=== PATIENT | male | born 1965 | race African-American/Black ===

== ENCOUNTER → 2018-07-24 | Day surgery (SDC) | payer OTHER ==
[~2018-07-24] VITALS: Ht 175.3 cm; Wt 88.5 kg
[2018-07-24] VITALS (7 sets, daily range): BP systolic 132–156; BP diastolic 66–99
[~2018-07-24] MED LIST: ACIDOPHILUS LA1 EACH PO; AMBIEN10 MG PO; AMLODIPINE BESY10 MG PO; ASCORBIC ACID500 MG PO; BACTRIM DS TAB1 EACH GT; CHLORASEPTIC177 M1 PO; CRANBERRY425 MG GT; DAKIN'S473 M1 TOP; DOCUSATE SODIU100 MG PO; FAMOTIDINE40 MG PO; FENTANYL CITRATE/PF 100MCG/2 ML INJ ONE; HEPARIN SOD (PORCINE) 1000 UNIT/ML 30ML ONE; HYDROXYZINE HCL25 MG PO; LACTULOSE20 GM/30 M PO; LIDOCAINE HCL 2% LOCAL 20 ML VIAL ONE; MACRODANTIN100 MG PO; MAGNESIUM OXID400 MG PO; MEROPENEM1 GM IV; METOPROLOL TART50 MG PO; MIDAZOLAM HCL 2 MG/2 ML VIAL ONE; MUCINEX DM ER1 EAC1 PO; MULTIVITAMINS1 EAC6 PO; OMEPRAZOLE20 MG PO; PROMETHAZINE12.5 M1 PO; QUESTRAN PACKET4 GM PO; SODIUM CHLORIDE 0.9% 500ML 1,000 ML ONE; TESSALON PERLE100 MG PO; TYLENOL WITH C1 EACH PO; UNASYN 1.5 GM1.5 GM INJ; ZINC SULFATE220 MG PO
--- OUTSIDE RECORDS SUMMARY | 2018-07-24 06:48 | XMS REPORT | Clinical Summary ---
Author Author AILYN [facility] Address Unknown Phone Unavailable Care Team Providers Care Personalized Living Manager Nurse Name Role Phone Dillon Sae PCP Allergies No Known Allergies Medications End Date Status Medication Sig Dispensed Refills Start Date Active metoprolol (LOPRESSOR) 50 Take 50 mg by 0 MG tablet mouth 2 (two) 8 times daily. Active levothyroxine (SYNTHROID, Take 25 mcg 0 LEVOTHROID) 25 MCG tablet by mouth daily. Active cetirizine (ZYRTEC) 10 MG Take 10 mg by 0 tablet mouth nightly. Active amLODIPine (NORVASC) 10 Take 1 tablet 30 tablet 11 MG tablet (10 mg total) 8 by mouth daily. Active gabapentin (NEURONTIN) Take 1 90 capsule 6 300 MG capsule capsule (300 8 mg total) by mouth 3 (three) times daily. Active losartan (COZAAR) 100 MG Take 1 tablet 30 tablet 11 tablet (100 mg 8 total) by mouth daily. Active HYDROcodone-acetaminophen Take 1 tablet 30 tablet 0 (NORCO 10-325) 10-325 mg by mouth 8 per tablet every 6 (six) hours as needed for Pain. Max Daily Amount: 4 tablets 02/07/2018 levoFLOXacin (LEVAQUIN) Take 1 tablet 10 tablet 0 500 MG tablet (500 mg 8 total) by mouth daily for 7 days. 07/08/2018 sulfamethoxazole-trimetho Take 1 tablet 20 tablet 0 prim (BACTRIM DS) 800-160 (160 mg of 9 mg per tablet trimethoprim total) by mouth 2 (two) times daily for 10 days smx-tmp DS (BACTRIM) 800-160 mg tabs (1tab q12 D10). Active Problems Problem Noted Date Wound, open, hip or thigh with complication, left, initial encounter 11/14/2017 Decubitus ulcer of sacral region, unspecified ulcer stage 05/14/2017 Acute pyelonephritis 11/28/2016 Sepsis 11/28/2016 MANNY (acute kidney injury) 11/28/2016 Essential hypertension 11/28/2016 Diarrhea 11/28/2016 Chronic osteomyelitis of left femur 03/19/2016 Osteomyelitis 03/19/2016 Lower urinary tract infectious disease 08/17/2013 Overview: UPDATED BY ICD10 SNOMED/IMO UPDATES Decubitus skin ulcer 08/17/2013 Overview: SNOMED/[place] [address] Anemia, chronic disease 08/17/2013 Paraparesis of both lower limbs 08/17/2013 Neurogenic bladder 08/17/2013 SIRS (systemic inflammatory response syndrome) 08/17/2013 Encounters Care Team Description Date Type Specialty Spring Cook MD Acute UTI (Primary Dx); Lower abdominal pain; Chronic osteomyelitis (HCC); Infected hardware in left lower extremity, initial encounter (HCC); Cough 06/28/2018 Emergency Emergency Medicine Richard Vasquez MD 04/18/2018 Office Visit Wound Care Richard Vasquez MD No Show 04/11/2018 Office Visit Wound Care Richard Vasquez MD 04/04/2018 Office Visit Wound Care Richard Vasquez MD 02/21/2018 Office Visit Wound Care Richard Vasquez MD 02/14/2018 Office Visit Wound Care Guevara Jay MD Epididymitis (Primary Dx); Scrotal swelling; Abdominal pain, acute, left lower quadrant 01/31/2018 Emergency Emergency Medicine Richard Vasquez MD 01/24/2018 Office Visit Wound Care Richard Vasquez MD No Show 01/17/2018 Office Visit Wound Care Richard Vasquez MD 11/22/2017 Office Visit Wound Care Sukumar Duvall MD Brann, Christopher Scott, MD Gadicherla, Sonal Muralinath, MD Wound, open, hip or thigh with complication, left, initial encounter (Primary Dx); Chronic osteomyelitis (HCC); Decubitus ulcer of sacral region, unspecified ulcer stage; Paraparesis of both lower limbs (HCC); Neurogenic bladder; Suprapubic catheter (HCC); Urinary tract infection associated with cystostomy catheter, initial encounter (HCC); MANNY (acute kidney injury) (HCC); Chronic osteomyelitis of left femur (HCC); Essential hypertension; Decubitus ulcer of buttock, stage 2, unspecified laterality 11/14/2017 [facility] General Internal Medicine - Encounter 11/18/2017 Richard Vasquez MD 11/08/2017 Office Visit Wound Care Richard Vasquez MD 10/11/2017 Office Visit Wound Care Richard Vasquez MD 09/20/2017 Office Visit Wound Care Richard Vasquez MD 08/30/2017 Office Visit Wound Care Richard Vasquez MD 08/09/2017 Office Visit Wound Care Richard Vasquez MD 07/26/2017 Office Visit Wound Care after 07/23/2017 Social History Date Tobacco Use Types Packs/Day Years Used Never Smoker Smokeless Tobacco: Never Used Alcohol Use Drinks/Week oz/Week Comments Yes occasionally. Sex Assigned at Date Recorded Not on file Industry Job Start Date Occupation Not on file Not on file Not on file Travel End Travel History Travel Start No recent travel history available. Last Filed Vital Signs Time Taken Vital Sign Reading 06/28/2018 10:47 PM CDT Blood Pressure 123/70 06/28/2018 10:47 PM CDT Pulse 96 06/28/2018 10:47 PM CDT Temperature 36.9 C (98.4 F) 06/28/2018 10:47 PM CDT Respiratory Rate 16 06/28/2018 10:47 PM CDT Oxygen Saturation 98% - Inhaled Oxygen - Concentration 06/28/2018 5:53 PM CDT Weight 88.5 kg (195 lb) 01/31/2018 2:22 PM [employer] Height 175.3 cm (5' 9") 06/28/2018 5:53 PM CDT Body Mass Index 28.8 Plan of Treatment Not on file Procedures Comments Procedure Name Priority Date/Time Associated Diagnosis URINALYSIS W/ REFLEX STAT 06/28/2018 URINE CULTURE 7:53 PM CDT URINE CULTURE STAT 06/28/2018 7:[address] ABDOMEN/PELVIS WITHOUT STAT 06/28/2018 IV CONTRAST 7:46 PM CDT XR CHEST 1 VIEW STAT 06/28/2018 PORTABLE/BEDSIDE 7:06 PM CDT POCT-LACTIC ACID, VENOUS Routine 06/28/2018 6:57 PM CDT CBC W/PLT COUNT & AUTO STAT 06/28/2018 DIFFERENTIAL 6:49 PM CDT BLOOD GAS, VENOUS STAT 06/28/2018 6:49 PM CDT MAGNESIUM STAT 06/28/2018 6:49 PM CDT PHOSPHORUS STAT 06/28/2018 6:49 PM CDT HEPATIC FUNCTION PANEL STAT 06/28/2018 6:49 PM CDT BASIC METABOLIC PANEL (7) STAT 06/28/2018 6:49 PM CDT CBC W/PLT COUNT & AUTO STAT 06/28/2018 DIFFERENTIAL 6:[address] ABDOMEN/PELVIS WITHOUT STAT 01/31/2018 IV CONTRAST 6:08 PM [employer] US DOPPLER STAT 01/31/2018 4:20 PM [employer] US TESTICULAR (SCROTUM) STAT 01/31/2018 4:20 PM [employer] URINALYSIS W/ MICROSCOPIC STAT 01/31/2018 3:16 PM [employer] BLOOD CULTURE STAT 01/31/2018 3:14 PM [employer] BLOOD CULTURE STAT 01/31/2018 3:03 PM [employer] CBC W/PLT COUNT & AUTO STAT 01/31/2018 DIFFERENTIAL 3:02 PM [employer] CBC W/PLT COUNT & AUTO STAT 01/31/2018 DIFFERENTIAL 3:02 PM [employer] BASIC METABOLIC PANEL (7) STAT 01/31/2018 3:02 PM [employer] CBC W/PLT COUNT & AUTO Routine 11/15/2017 DIFFERENTIAL 5:34 AM CDT CBC W/PLT COUNT & AUTO Routine 11/15/2017 DIFFERENTIAL 5:34 AM CDT HEPATIC FUNCTION PANEL Routine 11/15/2017 5:34 AM CDT BASIC METABOLIC PANEL (7) Routine 11/15/2017 5:34 AM CDT XR FEMUR 2 VIEWS LEFT STAT 11/14/2017 11:28 PM CDT WOUND CULTURE + GRAM STAT 11/14/2017 STAIN 11:13 PM CDT C-REACTIVE PROTEIN STAT 11/14/2017 9:17 PM CDT URINALYSIS W/ REFLEX STAT 11/14/2017 URINE CULTURE 9:17 PM CDT URINE CULTURE STAT 11/14/2017 9:17 PM CDT XR PELVIS 1 OR 2 VIEWS STAT 11/14/2017 9:10 PM CDT XR HIP LEFT 2 VIEW STAT 11/14/2017 9:10 PM CDT CBC W/PLT COUNT & AUTO STAT 11/14/2017 DIFFERENTIAL 4:40 PM CDT BASIC METABOLIC PANEL (7) STAT 11/14/2017 4:40 PM CDT CBC W/PLT COUNT & AUTO STAT 11/14/2017 DIFFERENTIAL 4:40 PM CDT after 07/23/2017 Results * Urinalysis w/Microscopic + Reflex to Culture (06/28/2018 7:53 PM CDT) Only the most recent of 2 results within the time period is included. Color, UA Yellow [facility] Clarity, UA Hazy [facility] Specific Hope, UA 1.014 1.001 - 1.035 [facility] pH, UA 8.5 (H) 5.0 - 8.0 [facility] Protein, UA 300 mg/dL (A) Negative [facility] Glucose, UA Negative Negative [facility] Ketones, UA Negative Negative [facility] Bilirubin, UA Negative Negative [facility] Blood, UA Negative Negative [facility] Nitrite, UA Negative Negative [facility] Leukocytes, UA Large (A) Negative [facility] Urobilinogen, UA 0.2 0.2 - 1.0 mg/dL [facility] RBC, UA 0 /HPF [facility] WBC, UA 19 /HPF [facility] Bacteria, UA Many [facility] Mucus Rare [facility] Squam Epithel, UA <1 /HPF [facility] Crystals, Urine Occasional [facility] Yeast Few [facility] Specimen Source [facility] Specimen Urine Performing Organization Address City/State/Zipcode Phone Number [facility] [address] [place] [address] [facility] * Urine culture (06/28/2018 7:53 PM CDT) Only the most recent of 2 results within the time period is included. Result >100,000 col/mL Non-lactose [facility] fermenting gram negative hitesh [facility] (A)Comment: ESBL Positive Specimen Urine Antibiotic Method Susceptibility Organism Amikacin <=2: Susceptible Non-lactose fermenting gram negative hitesh Ampicillin + Sulbactam >=32: Resistant Non-lactose fermenting gram negative hitesh Aztreonam 8: Resistant Non-lactose fermenting gram negative hitesh Cefepime Resistant Non-lactose fermenting gram negative hitesh Cefoxitin >=64: Resistant Non-lactose fermenting gram negative hitesh Ceftazidime 8: Resistant Non-lactose fermenting gram negative hitesh Ceftriaxone Resistant Non-lactose fermenting gram negative hitesh Ertapenem <=0.5: Susceptible Non-lactose fermenting gram negative hitesh Gentamicin <=1: Susceptible Non-lactose fermenting gram negative hitesh Levofloxacin >=8: Resistant Non-lactose fermenting gram negative hitesh Meropenem 0.5: Susceptible Non-lactose fermenting gram negative hitesh Nitrofurantoin 256: Resistant Non-lactose fermenting gram negative hitesh Piperacillin + Tazobactam Resistant Non-lactose fermenting gram negative hitesh Tetracycline 8: Resistant Non-lactose fermenting gram negative hitesh Tobramycin <=1: Susceptible Non-lactose fermenting gram negative hitesh Trimethoprim + Sulfamethoxazole 40: Susceptible Non-lactose fermenting gram negative hitesh Performing Organization Address City/State/Zipcode Phone Number [facility] [address] [place] [address] [facility] * CT abdomen pelvis without contrast (06/28/2018 7:46 PM CDT) Only the most recent of 2 results within the time period is included. Specimen Narrative Performed At FINAL REPORT [facility] EXAM: CT of the abdomen and pelvis, without contrast CLINICAL HISTORY:Abdominal pain, fever, abscess suspected. Wound check; wound is left posterior pelvis and hip TECHNIQUE: CT of the abdomen and pelvis was performed without the intravenous administration of contrast.This exam was performed according to our departmental dose optimization program which includes automated exposure control, adjustment of the mA and/or kV according to patient's size and/or use of iterative reconstructive technique. COMPARISON:CT abdomen and pelvis 01/31/2018 FINDINGS: Please note study is limited due to lack of intravenous contrast. LOWER CHEST: Bibasilar dependent atelectasis, right greater than left. LIVER: Hepatomegaly. BILE DUCTS: Within normal limits. GALL BLADDER: Status post cholecystectomy. PANCREAS: Within normal limits. SPLEEN: Within normal limits. ADRENALS: Within normal limits. KIDNEYS/URETERS: Within normal limits. URINARY BLADDER: Collapsed around the suprapubic catheter. REPRODUCTIVE ORGANS: Within normal limits. BOWEL/MESENTERY: Left lower quadrant colostomy. No bowel obstruction or abnormal wall thickening. Normal appendix. PERITONEUM/RETROPERITONEUM: Again seen is fatty stranding/edema versus scarring in the paravertebral soft tissues and presacral soft tissues. No free air, free fluid or fluid collection. VESSELS: Right common iliac and external iliac artery stent. Mild calcific atherosclerosis. LYMPH NODES: Prominent left external iliac and left inguinal lymph nodes, likely reactive. BONES AND SOFT TISSUES: Again seen is diffuse osteolysis and fragmentation of the bilateral proximal femurs and hip joints, left greater than right with extensive soft tissue within the bilateral hip joint spaces. Chronic dislocation of bilateral hips. Again seen is a large wound/ulcer with debris and air-fluid level extending from the left hip joint to the posterior hip soft tissues. Diffuse skin thickening of the bilateral gluteal regions extending to the perineum to prior exam. Diffuse atrophy in the paraspinal, pelvic and thigh musculature. Status post ORIF of the left proximal femur. Generalized osteopenia. Thoracolumbar spinal fusion hardware again noted. 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 Multilevel degenerative changes of the visualized spine. Peripheral calcification of the thoracolumbar thecal sac, unchanged. IMPRESSION: Chronic deformity of the bilateral hips, similar to prior exam. Status post ORIF of the left proximal femur. Large wound/ulcer with debris and air-fluid level extending from the left hip joint to the posterior hip soft tissues, suspicious for septic arthritis. Signed: Williams Cunningham MD Report Verified Date/Time:06/28/2018 20:07:50 Reading Location: [facility] C013Y CT Body Reading Room Procedure Note Interface, External Ris In - 06/28/2018 8:09 PM CDT FINAL REPORT EXAM: CT of the abdomen and pelvis, without contrast CLINICAL HISTORY: Abdominal pain, fever, abscess suspected. Wound check; wound is left posterior pelvis and hip TECHNIQUE: CT of the abdomen and pelvis was performed without the intravenous administration of contrast. This exam was performed according to our departmental dose optimization program which includes automated exposure control, adjustment of the mA and/or kV according to patient's size and/or use of iterative reconstructive technique. COMPARISON: CT abdomen and pelvis 01/31/2018 FINDINGS: Please note study is limited due to lack of intravenous contrast. LOWER CHEST: Bibasilar dependent atelectasis, right greater than left. LIVER: Hepatomegaly. BILE DUCTS: Within normal limits. GALL BLADDER: Status post cholecystectomy. PANCREAS: Within normal limits. SPLEEN: Within normal limits. ADRENALS: Within normal limits. KIDNEYS/URETERS: Within normal limits. URINARY BLADDER: Collapsed around the suprapubic catheter. REPRODUCTIVE ORGANS: Within normal limits. BOWEL/MESENTERY: Left lower quadrant colostomy. No bowel obstruction or abnormal wall thickening. Normal appendix. PERITONEUM/RETROPERITONEUM: Again seen is fatty stranding/edema versus scarring in the paravertebral soft tissues and presacral soft tissues. No free air, free fluid or fluid collection. VESSELS: Right common iliac and external iliac artery stent. Mild calcific atherosclerosis. LYMPH NODES: Prominent left external iliac and left inguinal lymph nodes, likely reactive. BONES AND SOFT TISSUES: Again seen is diffuse osteolysis and fragmentation of the bilateral proximal femurs and hip joints, left greater than right with extensive soft tissue within the bilateral hip joint spaces. Chronic dislocation of bilateral hips. Again seen is a large wound/ulcer with debris and air-fluid level extending from the left hip joint to the posterior hip soft tissues. Diffuse skin thickening of the bilateral gluteal regions extending to the perineum to prior exam. Diffuse atrophy in the paraspinal, pelvic and thigh musculature. Status post ORIF of the left proximal femur. Generalized osteopenia. Thoracolumbar spinal fusion hardware again noted. 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 Multilevel degenerative changes of the visualized spine. Peripheral calcification of the thoracolumbar thecal sac, unchanged. IMPRESSION: Chronic deformity of the bilateral hips, similar to prior exam. Status post ORIF of the left proximal femur. Large wound/ulcer with debris and air-fluid level extending from the left hip joint to the posterior hip soft tissues, suspicious for septic arthritis. Signed: Williams Cunningham MD Report Verified Date/Time: 06/28/2018 20:07:50 Reading Location: [facility] B1 C013Y CT Body Reading Room Performing Organization Address City/State/Zipcode Phone Number [facility] * XR chest 1 view portable / bedside (06/28/2018 7:06 PM CDT) Specimen Narrative Performed At FINAL REPORT [facility] Chest one view. Clinical history: Abdominal pain and cough. Comparison: Chest radiograph 11/28/2016. Technique: A single frontal view of the chest was obtained. Findings: The cardiomediastinal contours are normal. There is no focal pulmonary consolidation, pleural effusion or pneumothorax. There is no pulmonary edema. There is partially imaged spinal fixation hardware overlying the lower thoracic and upper lumbar spine. There is elevation of the right hemidiaphragm. There is interpositioning of bowel in the left upper quadrant. Impression: Elevated right hemidiaphragm. No focal pulmonary consolidation. Signed: Williams Cunningham MD Report Verified Date/Time:06/28/2018 19:21:05 Reading Location: [address] Body Reading Room Procedure Note Interface, External Ris In - 06/28/2018 7:23 PM CDT FINAL REPORT Chest one view. Clinical history: Abdominal pain and cough. Comparison: Chest radiograph 11/28/2016. Technique: A single frontal view of the chest was obtained. Findings: The cardiomediastinal contours are normal. There is no focal pulmonary consolidation, pleural effusion or pneumothorax. There is no pulmonary edema. There is partially imaged spinal fixation hardware overlying the lower thoracic and upper lumbar spine. There is elevation of the right hemidiaphragm. There is interpositioning of bowel in the left upper quadrant. Impression: Elevated right hemidiaphragm. No focal pulmonary consolidation. Signed: Williams Cunningham MD Report Verified Date/Time: 06/28/2018 19:21:05 Reading Location: [facility] C0[facility] CT Body Reading Room Performing Organization Address City/State/Zipcode Phone Number [facility] * POC-Lactic Acid, Venous (06/28/2018 6:57 PM CDT) POC-Lactic Acid, Venous 1.3Comment: TESTED AT [facility] 0.9 - 1.7 mmol/L [address] Specimen Blood Performing Organization Address City/[facility]/[place] [address] [facility] * CBC with platelet count + automated diff (06/28/2018 6:49 PM CDT) Only the most recent of 4 results within the time period is included. WBC 10.5 3.5 - 10.5 K/L [facility] RBC 3.90 (L) 4.63 - 6.08 M/L [facility] Hemoglobin 10.9 (L) 13.7 - 17.5 GM/DL [facility] Hematocrit 35.6 (L) 40.1 - 51.0 % [facility] MCV 91.3 79.0 - 92.2 fL [facility] MCH 27.9 25.7 - 32.2 pg [facility] MCHC 30.6 (L) 32.3 - 36.5 GM/DL [facility] RDW 17.5 (H) 11.6 - 14.4 % [facility] Platelets 428 150 - 450 K/CU MM [facility] MPV 8.5 (L) 9.4 - 12.4 fL [facility] nRBC 0 0 - 0 /100 WBC [facility] % Neutros 77 % [facility] % Lymphs 14 % [facility] % Monos 8 % [facility] % Eos 1 % [facility] % Baso 0 % [facility] # Neutros 8.04 (H) 1.78 - 5.38 K/L [facility] # Lymphs 1.42 1.32 - 3.57 K/L [facility] # Monos 0.85 (H) 0.30 - 0.82 K/L [facility] # Eos 0.08 0.04 - 0.54 K/L [facility] # Baso 0.02 0.01 - 0.08 K/L [facility] Immature 0 0 - 1 % [facility] Granulocytes-[facility] Specimen Blood Performing Organization Address City/State/Zipcode Phone Number [address] [address] [phone] [place] [address] * Phosphorus (06/28/2018 6:49 PM CDT) Phosphorus 2.3 2.3 - 4.7 mg/dL [facility] Specimen Blood Performing Organization Address City/[facility]/Zipcode Phone Number [place] [phone] * Magnesium (06/28/2018 6:49 PM CDT) Magnesium 2.1 1.6 - 2.6 mg/dL [facility] Specimen Blood Performing Organization Address City/[facility] Phone Number [address] [address] [phone] [place] [address] * Blood gas, venous (06/28/2018 6:49 PM CDT) pH, Tarik 7.34 7.32 - 7.42 [facility] pCO2, Tarik 43 41 - 51 mmHg [facility] pO2, Tarik 34 25 - 40 mmHg [facility] O2 Sat, Tarik 61.5 40.0 - 70.0 % [facility] HCO3, Tarik 23 21 - 29 mmol/L [facility] Base Excess, Tarik -2.7 (L) -2.0 - 3.0 mmol/L [facility] Patient Temperature 37.0 C [facility] FIO2 21.0 % [facility] Specimen Blood Performing Organization Address City/[facility]/Zipcode Phone Number [address], [place] [phone] [facility] * Hepatic function panel (06/28/2018 6:49 PM CDT) Only the most recent of 2 results within the time period is included. Protein, Total 9.0 (H) 6.0 - 8.3 gm/dL [facility] Albumin 3.1 (L) 3.5 - 5.0 g/dL [facility] Total Bilirubin 0.2 0.2 - 1.2 mg/dL [facility] Bilirubin, Direct 0.2 0.1 - 0.5 mg/dL [facility] Alkaline Phosphatase 209 (H) 40 - 150 U/L [facility] AST 15 5 - 34 U/L [facility] ALT 14 6 - 55 U/L [facility] Specimen Blood Performing Organization Address City/State/Zipcode Phone Number [address] [phone] [facility] * Basic Metabolic Panel (06/28/2018 6:49 PM CDT) Only the most recent of 4 results within the time period is included. Sodium 137 136 - 145 meq/L [facility] Potassium 4.1 3.5 - 5.1 meq/L [facility] Chloride 107 98 - 107 meq/L [facility] CO2 21 (L) 22 - 29 meq/L [facility] BUN 22 (H) 7 - 21 mg/dL [facility] Creatinine 1.84 (H) 0.57 - 1.25 mg/dL [facility] Glucose 92 70 - 105 mg/dL [facility] Calcium 9.2 8.4 - 10.2 mg/dL [facility] EGFR 47Comment: ESTIMATED GFR IS mL/min/1.73 sq m [facility] NOT ACCURATE CREATININE [facility] CLEARANCE IN PREDICTING GLOMERULAR FILTRATION RATE. ESTIMATED GFR IS NOT APPLICABLE FOR DIALYSIS PATIENTS. Specimen Blood Performing Organization Address City/State/Zipcode Phone Number [facility] [address] [place] [address] [facility] * US testicular (scrotum) (01/31/2018 4:20 PM [employer]) Specimen Narrative Performed At FINAL REPORT [facility] TECHNIQUE: Grayscale, color Doppler, and spectral Doppler ultrasound of the scrotum and testicles. INDICATION: Testicular pain. COMPARISON: None. FINDINGS: RIGHT TESTIS: Measures 3 x 2 x 2.2 cm. Normal echotexture without focal lesions. There is a more rounded area of isoechogenicity in the right upper testicle with increased vascular flow. LEFT TESTIS: Measures 2.3 x 2 x 2.4 cm. Normal echotexture without focal lesions. VASCULAR: There are symmetric, arterial waveforms detected in both testes. No varicocele. EPIDIDYMIDES: The left epididymis is thickened with increased flow. SCROTUM: Trace right hydrocele. There is a complex left hydrocele with internal septations. An anechoic lesion in the left epididymal tail measures 0.9 x 0.7 x 0.7 cm is most consistent with an epididymal cyst. IMPRESSION: 1.The findings are consistent with left epididymitis. 2.There is a questionable rounded area of isoechogenicity in the right upper testicle with increased vascular flow. This may be more focal orchitis. However, a follow-up ultrasound is recommended in six weeks since a mass is also differential. 3.There is a complex left hydrocele. The findings were discussed with Dr. Jay on 01/31/2018 at 5:19 PM. Signed: Xavi Bermudez MD Report Verified Date/Time:01/31/2018 17:09:48 Reading Location: [address] Ultrasound Reading Room Procedure Note Interface, External Ris In - 01/31/2018 6:23 PM [employer] FINAL REPORT TECHNIQUE: Grayscale, color Doppler, and spectral Doppler ultrasound of the scrotum and testicles. INDICATION: Testicular pain. COMPARISON: None. FINDINGS: RIGHT TESTIS: Measures 3 x 2 x 2.2 cm. Normal echotexture without focal lesions. There is a more rounded area of isoechogenicity in the right upper testicle with increased vascular flow. LEFT TESTIS: Measures 2.3 x 2 x 2.4 cm. Normal echotexture without focal lesions. VASCULAR: There are symmetric, arterial waveforms detected in both testes. No varicocele. EPIDIDYMIDES: The left epididymis is thickened with increased flow. SCROTUM: Trace right hydrocele. There is a complex left hydrocele with internal septations. An anechoic lesion in the left epididymal tail measures 0.9 x 0.7 x 0.7 cm is most consistent with an epididymal cyst. IMPRESSION: 1.The findings are consistent with left epididymitis. 2.There is a questionable rounded area of isoechogenicity in the right upper testicle with increased vascular flow. This may be more focal orchitis. However, a follow-up ultrasound is recommended in six weeks since a mass is also differential. 3.There is a complex left hydrocele. The findings were discussed with Dr. Jay on 01/31/2018 at 5:19 PM. Signed: Xavi Bermudez MD Report Verified Date/Time: 01/31/2018 17:09:48 Reading Location: [address] Ultrasound Reading Room Performing Organization Address City/State/Zipcode Phone Number [facility] * US doppler (01/31/2018 4:20 PM CAPACITOR TESTER) Specimen Narrative Performed At FINAL REPORT [facility] TECHNIQUE: Grayscale, color Doppler, and spectral Doppler ultrasound of the scrotum and testicles. INDICATION: Testicular pain. COMPARISON: None. FINDINGS: RIGHT TESTIS: Measures 3 x 2 x 2.2 cm. Normal echotexture without focal lesions. There is a more rounded area of isoechogenicity in the right upper testicle with increased vascular flow. LEFT TESTIS: Measures 2.3 x 2 x 2.4 cm. Normal echotexture without focal lesions. VASCULAR: There are symmetric, arterial waveforms detected in both testes. No varicocele. EPIDIDYMIDES: The left epididymis is thickened with increased flow. SCROTUM: Trace right hydrocele. There is a complex left hydrocele with internal septations. An anechoic lesion in the left epididymal tail measures 0.9 x 0.7 x 0.7 cm is most consistent with an epididymal cyst. IMPRESSION: 1.The findings are consistent with left epididymitis. 2.There is a questionable rounded area of isoechogenicity in the right upper testicle with increased vascular flow. This may be more focal orchitis. However, a follow-up ultrasound is recommended in six weeks since a mass is also differential. 3.There is a complex left hydrocele. The findings were discussed with Dr. Jay on 01/31/2018 at 5:19 PM. Signed: Xavi Bermudez MD Report Verified Date/Time:01/31/2018 17:09:48 Reading Location: [address] Ultrasound Reading Room Procedure Note Interface, External Ris In - 01/31/2018 6:23 PM [employer]ACITOR TESTER FINAL REPORT TECHNIQUE: Grayscale, color Doppler, and spectral Doppler ultrasound of the scrotum and testicles. INDICATION: Testicular pain. COMPARISON: None. FINDINGS: RIGHT TESTIS: Measures 3 x 2 x 2.2 cm. Normal echotexture without focal lesions. There is a more rounded area of isoechogenicity in the right upper testicle with increased vascular flow. LEFT TESTIS: Measures 2.3 x 2 x 2.4 cm. Normal echotexture without focal lesions. VASCULAR: There are symmetric, arterial waveforms detected in both testes. No varicocele. EPIDIDYMIDES: The left epididymis is thickened with increased flow. SCROTUM: Trace right hydrocele. There is a complex left hydrocele with internal septations. An anechoic lesion in the left epididymal tail measures 0.9 x 0.7 x 0.7 cm is most consistent with an epididymal cyst. IMPRESSION: 1.The findings are consistent with left epididymitis. 2.There is a questionable rounded area of isoechogenicity in the right upper testicle with increased vascular flow. This may be more focal orchitis. However, a follow-up ultrasound is recommended in six weeks since a mass is also differential. 3.There is a complex left hydrocele. The findings were discussed with Dr. Jay on 01/31/2018 at 5:19 PM. Signed: Xavi Bermudez MD Report Verified Date/Time: 01/31/2018 17:09:48 Reading Location: [address] Ultrasound Reading Room Performing Organization Address City/State/Zipcode Phone Number [facility] * Urinalysis w/Microscopic (01/31/2018 3:16 PM [employer]ACITOR TESTER) Color, UA Yellow [facility] Clarity, UA Hazy [facility] Specific Hope, UA 1.013 1.001 - 1.035 [facility] pH, UA 7.0 5.0 - 8.0 [facility] Protein, UA 200 mg/dL (A) Negative [facility] Glucose, UA 30 mg/dL (A) Negative [facility] Ketones, UA Negative Negative [facility] Bilirubin, UA Negative Negative [facility] Blood, UA Small (A) Negative [facility] Nitrite, UA Negative Negative [facility] Leukocytes, UA Large (A) Negative [facility] Urobilinogen, UA 0.2 0.2 - 1.0 mg/dL [facility] RBC, UA 2 /HPF [facility] WBC, UA 128 /HPF [facility] Bacteria, UA Moderate [facility] Mucus Rare [facility] Squam Epithel, UA 3 /HPF [facility] Hyaline Casts, UA 3 /LPF [facility] Specimen Source Urine, Suprapubic Aspirate [facility] Specimen Urine - Urine, Suprapubic Aspirate Performing Organization Address City/State/Zipcode Phone Number [facility] [address] [place] [address] [facility] * Blood culture (01/31/2018 3:14 PM [employer]ACITOR TESTER) Only the most recent of 2 results within the time period is included. Result No growth in 5 days [facility] Specimen Blood Performing Organization Address City/State/Zipcode Phone Number [facility] [address] [place] [address] [facility] * XR femur left AP and lateral (11/14/2017 11:28 PM CDT) Specimen Narrative Performed At FINAL REPORT [facility] CLINICAL HISTORY: Left hip wound COMPARISON: 05/16/2017 FINDINGS: 6 views of the left femur are submitted. The examination is limited by severe osteopenia, which can obscure a subtle bony abnormality. The patient has undergone previous intramedullary hitesh and screw fixation of a mid femoral shaft fracture. There is persistent nonhealing of the partially displaced fracture, an unchanged appearance when compared to previous. There is extensive soft tissue ossification/dystrophic change at the proximal femur. 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 There is no soft tissue gas or unexpected radiopaque foreign body. Please note that the radiographic appearance of osteomyelitis lags behind clinical onset. If of further clinical concern, three-phase bone scan or MRI is recommended.. Signed: Tino Toro MD Report Verified Date/Time:11/15/2017 00:18:10 Reading Location: [address] Reading Room Procedure Note Interface, External Ris In - 11/15/2017 12:20 AM CDT FINAL REPORT CLINICAL HISTORY: Left hip wound COMPARISON: 05/16/2017 FINDINGS: 6 views of the left femur are submitted. The examination is limited by severe osteopenia, which can obscure a subtle bony abnormality. The patient has undergone previous intramedullary hitesh and screw fixation of a mid femoral shaft fracture. There is persistent nonhealing of the partially displaced fracture, an unchanged appearance when compared to previous. There is extensive soft tissue ossification/dystrophic change at the proximal femur. 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 There is no soft tissue gas or unexpected radiopaque foreign body. Please note that the radiographic appearance of osteomyelitis lags behind clinical onset. If of further clinical concern, three-phase bone scan or MRI is recommended.. Signed: Tino Toro MD Report Verified Date/Time: 11/15/2017 00:18:10 Reading Location: [address] Reading Room Performing Organization Address City/State/[facility] Phone Number [facility] * Wound culture (11/14/2017 11:13 PM CDT) Result See comment [facility] Gram Stain Result 1+ White blood cells seen [facility] Gram Stain Result 1+ gram negative rods [facility] Gram Stain Result 1+ gram positive cocci in [facility] Specimen Abscess Narrative Performed At 3+ Enteric organisms of >2 types, No Further workup [facility] 3+ Skin philippe [facility] Performing Organization Address City/[facility] Phone Number [address] * C-Reactive Protein (11/14/2017 9:17 PM CDT) CRP 11.82 (H) 0.00 - 0.50 mg/dL [facility] Specimen Blood Performing Organization Address City/[facility] Phone Number [address] * XR hip 2 views left (11/14/2017 9:10 PM CDT) Specimen Narrative Performed At FINAL REPORT [facility] EXAM: Left hip 2 views COMPARISON: January 04, 2017 Clinical history: Wound check FINDINGS: Resorption of the left femoral neck with heterotopic ossification is again noted. There is interval insertion of a left femoral IM hitesh. Callus formation is noted involving the oblique mid shaft fracture with mild lateral displacement of the distal fragment. If indicated, left femur series is recommended for further assessment. Signed: Riya Horton MD Report Verified Date/Time:11/14/2017 21:25:11 Reading Location: [facility] [id number] Consult Reading Room Procedure Note Interface, External Ris In - 11/14/2017 9:27 PM CDT FINAL REPORT EXAM: Left hip 2 views COMPARISON: January 04, 2017 Clinical history: Wound check FINDINGS: Resorption of the left femoral neck with heterotopic ossification is again noted. There is interval insertion of a left femoral IM hitesh. Callus formation is noted involving the oblique mid shaft fracture with mild lateral displacement of the distal fragment. If indicated, left femur series is recommended for further assessment. Signed: Riya Horton MD Report Verified Date/Time: 11/14/2017 21:25:11 Reading Location: [place] [id number] Consult Reading Room Performing Organization Address City/State/Zipcode Phone Number [facility] * XR pelvis 1 or 2 views (11/14/2017 9:10 PM CDT) Specimen Narrative Performed At FINAL REPORT [facility] RAD, PELVIS, 1 OR 2 VIEWS CLINICAL INDICATION: hip wound, osteo COMPARISON: CT examination May 22, 2017, MR examination May 02, 2017 FINDINGS: Single AP view of the pelvis Frontal and frogleg views of the left hip. Marked expansile osteolytic and arthritic changes of the hip joints bilaterally with exuberant callus formation at the proximal left femur. The acetabular cup is nearly completely eroded with shallow angulation. Additionally, there is erosion bilaterally of the inferior pubic rami. Generalized bone stock is decreased. A left intramedullary hitesh and nail is incompletely viewed. Visible portions spinal stabilization hardware are intact. Vascular stent material noted in the left iliac and inguinal regions. IMPRESSION: Expansile posttraumatic and erosive changes in the left hip suggesting a combination of heterotopic ossification and likely underlying osteomyelitis. No visible acute fracture. Erosive changes bilaterally in the hips resulting in shallow acetabular angles as well as erosive changes involving the inferior pubic rami bilaterally. Signed: JR Cordova Robert MD Report Verified Date/Time:11/14/2017 21:26:58 Reading Location: [facility] [id number] CT Body Reading Room Procedure Note Interface, External Ris In - 11/14/2017 9:29 PM CDT FINAL REPORT RAD, PELVIS, 1 OR 2 VIEWS CLINICAL INDICATION: hip wound, osteo COMPARISON: CT examination May 22, 2017, MR examination May 02, 2017 FINDINGS: Single AP view of the pelvis Frontal and frogleg views of the left hip. Marked expansile osteolytic and arthritic changes of the hip joints bilaterally with exuberant callus formation at the proximal left femur. The acetabular cup is nearly completely eroded with shallow angulation. Additionally, there is erosion bilaterally of the inferior pubic rami. Generalized bone stock is decreased. A left intramedullary hitesh and nail is incompletely viewed. Visible portions spinal stabilization hardware are intact. Vascular stent material noted in the left iliac and inguinal regions. IMPRESSION: Expansile posttraumatic and erosive changes in the left hip suggesting a combination of heterotopic ossification and likely underlying osteomyelitis. No visible acute fracture. Erosive changes bilaterally in the hips resulting in shallow acetabular angles as well as erosive changes involving the inferior pubic rami bilaterally. Signed: JR Cordova Robert MD Report Verified Date/Time: 11/14/2017 21:26:58 Reading Location: [facility] B1 C013Y CT Body Reading Room Performing Organization Address City/State/Zipcode Phone Number [facility] after 07/23/2017 Insurance Payer Benefit Subscriber ID Type Phone Address Plan / Group MEDICAID - MEDICAID MGD [facility] xxxxxxxxx Medicaid [facility] Contracted PLAN Advance Directives For more information, please contact: [facility] [address] [place] [address] Date Inactivated Comments Code Status Date Activated 11/18/2017 8:31 PM Full Code 11/15/2017 12:48 AM This code status was determined by: Patient 05/29/2017 7:11 PM Full Code 05/14/2017 10:14 PM This code status was determined by: Patient 12/03/2016 5:50 PM Full Code 11/28/2016 1:37 PM This code status was determined by: Patient 03/28/2016 4:15 PM Full Code 03/19/2016 5:53 PM This code status was determined by: Patient 11/06/2013 5:28 PM Full Code 09/26/2013 11:14 AM This code status was determined by: Patient
--- OUTSIDE RECORDS SUMMARY | 2018-07-24 06:48 | XMS REPORT | Clinical Summary ---
Author Author [facility] Address Unknown Phone Unavailable Care Team Providers Care Woodenware Assembler Name Role Phone Asked, No Pcp PCP Unavailable Allergies No Known Allergies Medications End Date Status Medication Sig Dispensed Refills Start Date Active metoprolol tartrate Take 50 mg by 0 (LOPRESSOR) 50 mg tablet mouth 2 (two) times a day. Active levothyroxine (SYNTHROID, Take 25 mcg 0 LEVOXYL) 25 mcg tablet by mouth every morning. Active cetirizine (ZyrTEC) 10 MG Take 10 mg by 0 tablet mouth nightly. Active Problems Problem Noted Date Osteomyelitis hip 05/13/2017 Paraplegia 05/13/2017 Social History Date Tobacco Use Types Packs/Day Years Used Never Smoker Smokeless Tobacco: Never Used Alcohol Use Drinks/Week oz/Week Comments Yes Sex Assigned at Date Recorded Not on file Industry Job Start Date Occupation Not on file Not on file Not on file Travel End Travel History Travel Start No recent travel history available. Last Filed Vital Signs Not on file Plan of Treatment Not on file Results Not on fileafter 07/23/2017 Insurance Payer Benefit Subscriber ID Type Phone Address Plan / Group [employer] xxxxxxxxx HMO [employer] Advance Directives Patient has advance care planning documents on file. For more information, carlos palacio contact: Mehdi Butler [address] [place] [address]
--- OUTSIDE RECORDS SUMMARY | 2018-07-24 06:49 | XMS REPORT | Summary of Care ---
Author Author [facility] Organization [facility] Address Unknown Phone Unavailable Encounter HQ Deandre(TANISHA) [id number] Date(s): 03/21/17 - 03/23/17 [facility] [address] [employer] provided by [employer] at [facility] [place] [id number]- Encounter Diagnosis Unspecified fracture of left femur, initial encounter for open fracture type I o r II (Final) - Unspecified fracture of left femur, initial encounter for open fracture type I o r II (Final) - 03/29/17 Fall from bed, initial encounter (Final) - Paraplegia, unspecified (Final) - Acute kidney failure, unspecified (Final) - Essential (primary) hypertension (Final) - Vitamin D deficiency, unspecified (Final) - Obesity, unspecified (Final) - Body mass index (BMI) 31.0-31.9, adult (Final) - Pressure ulcer of sacral region, stage 4 (Final) - Neuromuscular dysfunction of bladder, unspecified (Final) - Anemia, unspecified (Final) - Elevated white blood cell count, unspecified (Final) - Dependence on wheelchair (Final) - 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) - Discharge Disposition: Home Care with Home Health Attending Physician: Shona Reynoso MD Admitting Physician: Shona Reynoso MD Vital Signs 1 2 3 Most recent to oldest [Reference Range]: 175.26 cm (03/22/17 1:02 AM) 175.26 cm (03/21/17 10:35 PM) 175.26 cm (03/21/17 8:44 AM) Height 95.455 kg (03/21/17 10:35 PM) Current Weight 98.2 DegF (03/23/17 3:43 PM) 98.0 DegF (03/23/17 11:41 AM) 98.0 DegF (03/23/17 8:38 AM) Temperature Oral [96.4-99.1 DegF] 126/75 mmHg (03/23/17 3:43 PM) 123/78 mmHg (03/23/17 11:41 AM) 161/101 mmHg *HI* (03/23/17 8:38 AM) Blood Pressure [90-140/60-90 mmHg] 18 BRMIN (03/23/17 3:43 PM) 18 BRMIN (03/23/17 11:41 AM) 18 BRMIN (03/23/17 8:38 AM) Respiratory Rate [14-20 BRMIN] 75 bpm (03/23/17 3:43 PM) 84 bpm (03/23/17 11:41 AM) 76 bpm (03/23/17 8:38 AM) Peripheral Pulse Rate [60-100 bpm] 95.455 kg (03/22/17 1:02 AM) 93.182 kg (03/21/17 8:44 AM) Weight 31.08 m2 (03/22/17 1:02 AM) 30.34 m2 (03/21/17 8:44 AM) Body Mass Index Problem List Condition Effective Dates Status Health Status Informant HTN Active (hypertension)(Confi rmed) Allergies, Adverse Reactions, Alerts Substance Reaction Severity Status NKDA Active Medications acetaminophen 500 mg, 1 tab, Route: PO, Drug form: TAB, Q6Hnow, Dosing Weight 93.182, kg, Star t date: 03/21/17 21:00:00 HISTORICAL SITE GUIDE, Stop date: 04/20/17 18:00:00 HISTORICAL SITE GUIDE Notes: Max acetaminophen 4000 mg/day (4 gm/day). (Same as: Tylenol Extra Streng th) Start Date: 03/21/17 Stop Date: 03/23/17 Status: Discontinued acetaminophen (ANES) 10 mg Route: IV, Drug form: INJ, Start date: 03/21/17 18:05:00 HISTORICAL SITE GUIDE, Stop date: 8 19:05:00 HISTORICAL SITE GUIDE Start Date: 03/21/17 Stop Date: 03/21/17 Status: Completed Ancef 2 gm, 20 mL, Route: IVP, Drug form: SOLN, ABXQ8H, Dosing Weight 95.455, kg, Star t date: 03/22/17 6:00:00 HISTORICAL SITE GUIDE, Duration: 2 day, Stop date: 03/24/17 0:00:00 HISTORICAL SITE GUIDE, ABX Indication: Open Wound Prophylaxis Notes: (Same as Ancef) Start Date: 03/22/17 Stop Date: 03/23/17 Status: Discontinued Ancef 2 gm, Route: IVPB, ONCE, Dosing Weight 93.182, kg, Priority: STAT, Start date: 0 03/21/17 9:17:00 HISTORICAL SITE GUIDE, Stop date: 03/21/17 9:17:00 HISTORICAL SITE GUIDE, ABX Indication: Open Wound Prophylaxis Start Date: 03/21/17 Stop Date: 03/21/17 Status: Completed Ancef + sterile water 20 mL 2 gm, Route: IV, Q8H, Dosing Weight 93.182, kg, Start date: 03/21/17 16:00:00 CS T, Duration: 48 hr, Stop date: 03/23/17 8:00:00 HISTORICAL SITE GUIDE, ABX Indication: Open Wound Prophylaxis Notes: (Same As: Ancef, Kefzol) MEDICATION WASTE Product Size: 1000 mgP roduct Wasted: ___ mg Start Date: 03/21/17 Stop Date: 03/21/17 Status: Discontinued ANES flumazenil 0.2 mg, Route: IVP, PRN, Dosing Weight 93.182, kg, PRN Benzodiazepine Reversal, Initial dose, Start date: 03/21/17 18:59:00 HISTORICAL SITE GUIDE, Duration: 30 day, Stop date: 18:58:00 HISTORICAL SITE GUIDE Start Date: 03/21/17 Stop Date: 03/20/17 Status: Discontinued ANES flumazenil 0.2 mg, Route: IVP, PRN, Dosing Weight 93.182, kg, PRN Benzodiazepine Reversal, Initial dose, Start date: 03/21/17 18:59:00 HISTORICAL SITE GUIDE, Duration: 30 day, Stop date: 18:58:00 HISTORICAL SITE GUIDE Start Date: 03/21/17 Stop Date: 03/20/17 Status: Discontinued ANES hydrALAZINE 10 mg, Route: IVP, Q20Min, Dosing Weight 93.182, kg, PRN Elevated BP, Start date : 03/21/17 18:59:00 HISTORICAL SITE GUIDE, Duration: 2 doses or times, Stop date: Limited # of diony es Start Date: 03/21/17 Stop Date: 03/20/17 Status: Discontinued ANES HYDROmorphone 0.5 mg, Route: IVP, Q5Min, Dosing Weight 93.182, kg, PRN Pain Score 7-10, Start date: 03/21/17 18:59:00 HISTORICAL SITE GUIDE, Duration: 4 doses or times, Stop date: Limited # of times Start Date: 03/21/17 Stop Date: 03/20/17 Status: Discontinued ANES labetalol 10 mg, Route: IVP, Q5Min, Dosing Weight 93.182, kg, PRN Elevated BP, Start date: 03/21/17 18:59:00 HISTORICAL SITE GUIDE, Duration: 5 doses or times, Stop date: Limited # of times Start Date: 03/21/17 Stop Date: 03/20/17 Status: Discontinued ANES metoprolol 1 mg, Route: IVP, Q5Min, Dosing Weight 93.182, kg, PRN Other -See Comment, Start date: 03/21/17 18:59:00 HISTORICAL SITE GUIDE, Duration: 5 doses or times, Stop date: Limited # of times Start Date: 03/21/17 Stop Date: 03/20/17 Status: Discontinued ANES morphine Sulfate 4 mg, Route: IVP, Q5Min, Dosing Weight 93.182, kg, PRN Pain Score 7-10, Start da te: 03/21/17 18:59:00 HISTORICAL SITE GUIDE, Duration: 3 doses or times, Stop date: Limited # of t imes Start Date: 03/21/17 Stop Date: 03/20/17 Status: Discontinued ANES naloxone 0.4 mg, Route: IVP, Q2MIN, Dosing Weight 93.182, kg, PRN Narcotic Reversal, Star t date: 03/21/17 18:59:00 HISTORICAL SITE GUIDE, Duration: 8 doses or times, Stop date: Limited # of times Start Date: 03/21/17 Stop Date: 03/20/17 Status: Discontinued ANES naloxone 0.4 mg, Route: IVP, Q2MIN, Dosing Weight 93.182, kg, PRN Narcotic Reversal, Star t date: 03/21/17 18:59:00 HISTORICAL SITE GUIDE, Duration: 8 doses or times, Stop date: Limited # of times Start Date: 03/21/17 Stop Date: 03/20/17 Status: Discontinued ANES ondansetron 4 mg, Route: IVP, ONCE, Dosing Weight 93.182, kg, PRN Nausea & Vomiting, Start date: 03/21/17 18:59:00 HISTORICAL SITE GUIDE Start Date: 03/21/17 Stop Date: 03/20/17 Status: Discontinued ANES ondansetron 4 mg, Route: IVP, ONCE, Dosing Weight 93.182, kg, PRN Nausea & Vomiting, Start date: 03/21/17 18:59:00 HISTORICAL SITE GUIDE Start Date: 03/21/17 Stop Date: 03/20/17 Status: Discontinued ANES oxyCODONE 5 mg, Route: PO, Drug form: TAB, Q4H, Dosing Weight 93.182, kg, PRN Pain Score 4 -6, Start date: 03/21/17 18:59:00 HISTORICAL SITE GUIDE, Duration: 30 day, Stop date: 04/20/17 18: 58:00 HISTORICAL SITE GUIDE Start Date: 03/21/17 Stop Date: 03/20/17 Status: Discontinued ANES oxyCODONE 10 mg, Route: PO, Drug form: TAB, Q4H, Dosing Weight 93.182, kg, PRN Pain Score 7-10, Start date: 03/21/17 18:59:00 HISTORICAL SITE GUIDE, Duration: 30 day, Stop date: 04/20/17 1 8:58:00 HISTORICAL SITE GUIDE Start Date: 03/21/17 Stop Date: 03/20/17 Status: Discontinued ceFAZolin (ANES) Route: IV, Drug form: INJ, ONCE, Stop date: 03/21/17 16:23:00 HISTORICAL SITE GUIDE Start Date: 03/21/17 Stop Date: 03/21/17 Status: Completed ceFAZolin (SCIP) + sterile water 20 mL 2 gm, Route: IVPB, ABXQ8H, Dosing Weight 93.182, kg, Start date: 03/22/17 0:00:0 0 HISTORICAL SITE GUIDE, Duration: 3 doses or times, Stop date: 03/22/17 16:00:00 HISTORICAL SITE GUIDE, ABX Indicat ion: Surgical Prophylaxis Notes: (Same As: Mesha Rueda) MEDICATION WASTE Product Size: 1000 mgP roduct Wasted: 0 mg Start Date: 03/22/17 Stop Date: 03/22/17 Status: Discontinued D5W 1/2NS 1,000 mL 1,000 mL, Rate: 100 ml/hr, Infuse over: 10 hr, Route: IV, Dosing Weight 93.182 k g, Total Volume: 1,000, Priority: STAT, Start date: 03/21/17 20:32:00 HISTORICAL SITE GUIDE, Durat ion: 30 day, Stop date: 04/20/17 20:31:00 HISTORICAL SITE GUIDE, 2.15, m2 Start Date: 03/21/17 Stop Date: 03/22/17 Status: Discontinued Dakins Half Strength Solution 0.25% topical 1 appl, Route: TOP, Drug Form: SOLN, Dosing Weight 95.455, kg, Daily, Start date : 03/23/17 9:00:00 HISTORICAL SITE GUIDE, Duration: 30 day, Stop date: 04/21/17 9:00:00 HISTORICAL SITE GUIDE Start Date: 03/23/17 Stop Date: 03/22/17 Status: Deleted Dakins Quarter Strength Solution 1 appl, Route: TOP, Drug Form: SOLN, Dosing Weight 95.455, kg, Daily, Start date : 03/22/17 11:00:00 HISTORICAL SITE GUIDE, Duration: 30 day, Stop date: 04/20/17 21:00:00 HISTORICAL SITE GUIDE Notes: (Dakin's (0.125%=1/4 strength) 473ml top SOLN) For external use only. No te: quarter strength=0.125% sodium hypochlorite. Start Date: 03/22/17 Stop Date: 03/23/17 Status: Discontinued dexamethasone (ANES) Route: IV, Drug form: INJ, ONCE, Stop date: 03/21/17 16:53:00 HISTORICAL SITE GUIDE Start Date: 03/21/17 Stop Date: 03/21/17 Status: Completed dexmedetomidine (ANES) + Sodium Chloride 0.9% IV (ANES) 98 mL Route: IV, Drug form: INJ, ONCE, Stop date: 03/21/17 16:43:00 HISTORICAL SITE GUIDE Start Date: 03/21/17 Stop Date: 03/21/17 Status: Completed docusate 100 mg, 1 cap, Route: PO, Drug form: CAP, BID, Dosing Weight 93.182, kg, Start d ate: 03/22/17 9:00:00 HISTORICAL SITE GUIDE, Duration: 30 day, Stop date: 04/20/17 17:00:00 HISTORICAL SITE GUIDE Notes: (Same as: Colace) (Do Not Crush) Start Date: 03/22/17 Stop Date: 03/23/17 Status: Discontinued enoxaparin 40 mg, 0.4 mL, Route: SUB-Q, Drug form: INJ, [id number], Dosing Weight 93.182, kg, Start date: 03/21/17 21:00:00 HISTORICAL SITE GUIDE, Stop date: 04/19/17 21:00:00 HISTORICAL SITE GUIDE Notes: (Same as: Lovenox) Start Date: 03/21/17 Stop Date: 03/22/17 Status: Discontinued enoxaparin 30 mg, 0.3 mL, Route: SUB-Q, Drug form: INJ, Q12H, Dosing Weight 93.182, kg, Sta rt date: 03/22/17 13:00:00 HISTORICAL SITE GUIDE, Stop date: 04/20/17 0:00:00 HISTORICAL SITE GUIDE Notes: (Same as: Lovenox) Start Date: 03/22/17 Stop Date: 03/23/17 Status: Discontinued enoxaparin 30 mg/0.3 mL subcutaneous solution 30 mg, SUB-Q, BID, X 19 day, # 38 inj, 0 Refill(s), Pharmacy: [facility] [id number], patient needs 19 day supply Start Date: 03/23/17 Stop Date: 04/11/17 Status: Completed ergocalciferol 50,000 intl units oral capsule 50,000 IntlUnit, 1 cap, Route: PO, Drug form: CAP, QFri, Dosing Weight 95.455, k g, Start date: 03/22/17 9:00:00 HISTORICAL SITE GUIDE, Duration: 30 day, Stop date: 04/19/17 9:00: 00 HISTORICAL SITE GUIDE Notes: (Same as: Vitamin D) "Do Not Crush" Start Date: 03/22/17 Stop Date: 03/23/17 Status: Discontinued ergocalciferol 50,000 intl units oral capsule 50,000 IntlUnit=1 cap, PO, QFri, 0 Refill(s) Start Date: 03/23/17 Status: Ordered ergocalciferol 50,000 intl units oral capsule 50,000 IntlUnit=1 cap, PO, qWeek, # 8 cap, 0 Refill(s) Start Date: 03/20/17 Stop Date: 03/23/17 Status: Discontinued fentaNYL (ANES) Route: IV, Drug form: INJ, ONCE, Stop date: 03/21/17 16:43:00 HISTORICAL SITE GUIDE Start Date: 03/21/17 Stop Date: 03/21/17 Status: Completed gabapentin 300 mg, Route: PO, Q8Hnow, Dosing Weight 93.182, kg, Start date: 03/21/17 21:00: 00 HISTORICAL SITE GUIDE, Duration: 30 day, Stop date: 04/20/17 13:00:00 HISTORICAL SITE GUIDE Start Date: 03/21/17 Stop Date: 03/21/17 Status: Canceled gabapentin 300 mg oral capsule 300 mg, 1 cap, Route: PO, Drug form: CAP, BID, Dosing Weight 93.182, kg, Start d ate: 03/22/17 9:00:00 HISTORICAL SITE GUIDE, Duration: 30 day, Stop date: 04/20/17 17:00:00 HISTORICAL SITE GUIDE Notes: (Same as: Neurontin) Start Date: 03/22/17 Stop Date: 03/23/17 Status: Discontinued gabapentin 300 mg oral capsule 300 mg=1 cap, PO, BID, # 90 cap, 1 Refill(s) Start Date: 03/20/17 Status: Ordered glycopyrrolate (ANES) Route: IV, Drug form: INJ, ONCE, Stop date: 03/21/17 18:54:00 HISTORICAL SITE GUIDE Start Date: 03/21/17 Stop Date: 03/21/17 Status: Completed hydromorphone (ANES) Route: IV, Drug form: INJ, ONCE, Stop date: 03/21/17 18:49:00 HISTORICAL SITE GUIDE Start Date: 03/21/17 Stop Date: 03/21/17 Status: Completed ketAMINE (ANES) Route: IV, Drug form: INJ, ONCE, Stop date: 03/21/17 16:43:00 HISTORICAL SITE GUIDE Start Date: 03/21/17 Stop Date: 03/21/17 Status: Completed Lactated Ringers Injection IV (ANES) 1000 mL Route: IV, Total Volume: 1,000, Start date: 03/21/17 15:24:00 HISTORICAL SITE GUIDE, Stop date: 16:24:00 HISTORICAL SITE GUIDE Start Date: 03/21/17 Stop Date: 03/21/17 Status: Completed lidocaine (ANES) Route: IV, Drug form: INJ, ONCE, Stop date: 03/21/17 16:43:00 HISTORICAL SITE GUIDE Start Date: 03/21/17 Stop Date: 03/21/17 Status: Completed losartan 50 mg, Route: PO, Drug form: TAB, Daily, Dosing Weight 95.455, kg, Start date: 0 03/23/17 9:00:00 HISTORICAL SITE GUIDE, Duration: 30 day, Stop date: 04/21/17 9:00:00 HISTORICAL SITE GUIDE Start Date: 03/23/17 Stop Date: 03/22/17 Status: Canceled losartan 50 mg, 1 tab, Route: PO, Drug form: TAB, Daily, Dosing Weight 95.455, kg, Priori ty: NOW, Start date: 03/22/17 9:57:00 HISTORICAL SITE GUIDE, Duration: 30 day, Stop date: 04/21/17 9:00:00 HISTORICAL SITE GUIDE Notes: (Same as: Mehran) Start Date: 03/22/17 Stop Date: 03/23/17 Status: Discontinued losartan 100 mg oral tablet TK 1 T PO 3 TIMES A WK Start Date: 03/21/17 Stop Date: 03/23/17 Status: Discontinued losartan 50 mg oral tablet 50 mg=1 tab, PO, Daily, 0 Refill(s) Start Date: 03/23/17 Status: Ordered melatonin 3 mg, 1 tab, Route: PO, Drug form: TAB, Bedtime, Dosing Weight 93.182, kg, PRN I nsomnia, Start date: 03/21/17 20:34:00 HISTORICAL SITE GUIDE, Duration: 30 day, Stop date: 8 20:33:00 HISTORICAL SITE GUIDE Notes: (Same as: Melatonin) Start Date: 03/21/17 Stop Date: 03/23/17 Status: Discontinued meloxicam 7.5 mg oral tablet TK 1 T PO QHS Start Date: 03/21/17 Status: Ordered methocarbamol 1,000 mg, 2 tab, Route: PO, Drug form: TAB, Q8H, Dosing Weight 93.182, kg, PRN M uscle Spasms, Start date: 03/21/17 20:34:00 HISTORICAL SITE GUIDE, Duration: 30 day, Stop date: 20:33:00 HISTORICAL SITE GUIDE Notes: (Same as:Robaxin) Start Date: 03/21/17 Stop Date: 03/23/17 Status: Discontinued metoprolol tartrate 50 mg, 1 tab, Route: PO, Drug form: TAB, Q12H, Dosing Weight 93.182, kg, Start d ate: 03/21/17 21:00:00 HISTORICAL SITE GUIDE, Duration: 30 day, Stop date: 04/20/17 9:00:00 HISTORICAL SITE GUIDE Notes: (Same as: Lopressor) Start Date: 03/21/17 Stop Date: 03/23/17 Status: Discontinued Metoprolol Tartrate 50 mg oral tablet 50 mg=1 tab, PO, BID, # 60 tab, 0 Refill(s) Start Date: 03/20/17 Status: Ordered midazolam (ANES) Route: IV, Drug form: SOLN, ONCE, Stop date: 03/21/17 16:38:00 HISTORICAL SITE GUIDE Start Date: 03/21/17 Stop Date: 03/21/17 Status: Completed morphine Sulfate 4 mg, Route: IVP, ONCE, Dosing Weight 93.182, kg, Priority: STAT, Start date: 10:39:00 HISTORICAL SITE GUIDE, Stop date: 03/21/17 10:39:00 HISTORICAL SITE GUIDE Start Date: 03/21/17 Stop Date: 03/21/17 Status: Completed neostigmine (ANES) Route: IV, Drug form: INJ, ONCE, Stop date: 03/21/17 18:54:00 HISTORICAL SITE GUIDE Start Date: 03/21/17 Stop Date: 03/21/17 Status: Completed Limon 5/325 oral tablet 1 tab, Route: PO, Drug Form: TAB, Dosing Weight 95.455, kg, Q6H, PRN Pain Score 6-10, Start date: 03/22/17 7:18:00 HISTORICAL SITE GUIDE, Duration: 30 day, Stop date: 04/21/17 7: 17:00 HISTORICAL SITE GUIDE Notes: (Same as: Limon 325/5) Do not exceed 4gm/day of acetaminophen. Start Date: 03/22/17 Stop Date: 03/23/17 Status: Discontinued ondansetron 4 mg, Route: IVP, Drug form: INJ, ONCE, Dosing Weight 93.182, kg, Priority: STAT , Start date: 03/21/17 10:39:00 HISTORICAL SITE GUIDE, Stop date: 03/21/17 10:39:00 HISTORICAL SITE GUIDE Start Date: 03/21/17 Stop Date: 03/21/17 Status: Completed ondansetron 4 mg, 2 mL, Route: IVP, Drug form: INJ, Q8H, Dosing Weight 93.182, kg, PRN Nause a & Vomiting, Start date: 03/21/17 20:34:00 HISTORICAL SITE GUIDE, Duration: 30 day, Stop date: 04/20/17 20:33:00 HISTORICAL SITE GUIDE Notes: (Same as: Jayne) MEDICATION WASTE Product Size: 4 mgProduct Was junior: 0 mg Start Date: 03/21/17 Stop Date: 03/23/17 Status: Discontinued ondansetron (ANES) Route: IV, Drug form: INJ, ONCE, Stop date: 03/21/17 18:54:00 HISTORICAL SITE GUIDE Start Date: 03/21/17 Stop Date: 03/21/17 Status: Completed oxyCODONE 5 mg immediate release 5 mg, Route: PO, Drug form: TAB, Q4H, Dosing Weight 93.182, kg, PRN Pain Score 4 -6, Start date: 03/21/17 20:34:00 HISTORICAL SITE GUIDE, Duration: 30 day, Stop date: 04/20/17 20: 33:00 HISTORICAL SITE GUIDE Start Date: 03/21/17 Stop Date: 03/20/17 Status: Discontinued oxyCODONE 5 mg immediate release 10 mg, Route: PO, Drug form: TAB, Q4H, Dosing Weight 93.182, kg, PRN Pain Score 7-10, Start date: 03/21/17 20:34:00 HISTORICAL SITE GUIDE, Duration: 30 day, Stop date: 04/20/17 2 0:33:00 HISTORICAL SITE GUIDE Start Date: 03/21/17 Stop Date: 03/20/17 Status: Discontinued phenylephrine (ANES) Route: IV, Drug form: INJ, ONCE, Stop date: 03/21/17 16:28:00 HISTORICAL SITE GUIDE Start Date: 03/21/17 Stop Date: 03/21/17 Status: Completed polyethylene glycol 3350 17 gm, 1 pkt, Route: PO, Drug form: PWDR, Daily, Dosing Weight 93.182, kg, PRN C onstipation, Start date: 03/21/17 20:34:00 HISTORICAL SITE GUIDE, Duration: 30 day, Stop date: 12/26 20:33:00 HISTORICAL SITE GUIDE Notes: Dissolve in 8 oz of water or juice.(Same as: Levialax) Start Date: 03/21/17 Stop Date: 03/23/17 Status: Discontinued propofol (ANES) Route: IV, Drug form: INJ, ONCE, Stop date: 03/21/17 16:43:00 HISTORICAL SITE GUIDE Start Date: 03/21/17 Stop Date: 03/21/17 Status: Completed rocuronium (ANES) Route: IV, Drug form: INJ, ONCE, Stop date: 03/21/17 16:43:00 HISTORICAL SITE GUIDE Start Date: 03/21/17 Stop Date: 03/21/17 Status: Completed senna 17.2 mg, 2 tab, Route: PO, Drug Form: TAB, Dosing Weight 93.182, kg, Bedtime, St art date: 03/21/17 21:00:00 HISTORICAL SITE GUIDE, Duration: 30 day, Stop date: 04/19/17 21:00:00 HISTORICAL SITE GUIDE Notes: (Same as: Senokot) Start Date: 03/21/17 Stop Date: 03/23/17 Status: Discontinued senna 8.6 mg oral tablet 17.2 mg=2 tab, PO, Bedtime, X 7 day, # 14 tab, 0 Refill(s), Pharmacy: [facility] [id number] Start Date: 03/23/17 Stop Date: 03/30/17 Status: Completed Sodium Chloride 0.9% (Bolus) IV 1,000 mL, Infuse Over: 1 hr, Route: IV, ONCE, Priority: STAT, Dosing Weight 93.1 82 kg, Start date: 03/21/17 9:17:00 HISTORICAL SITE GUIDE, Stop date: 03/21/17 9:17:00 HISTORICAL SITE GUIDE Start Date: 03/21/17 Stop Date: 03/21/17 Status: Completed Sodium Chloride 0.9% IV 1,000 mL 1,000 mL, Rate: 100 ml/hr, Infuse over: 10 hr, Route: IV, Dosing Weight 95.455 k g, Total Volume: 1,000, Start date: 03/22/17 9:52:00 HISTORICAL SITE GUIDE, Duration: 1 doses or t imes, Stop date: 03/22/17 19:51:00 HISTORICAL SITE GUIDE, 2.18, m2 Start Date: 03/22/17 Stop Date: 03/22/17 Status: Completed tramadol 50 mg oral tablet 50 mg=1 tab, PO, Q6H, PRN Pain Score 6-10, X 5 day, # 20 tab, 0 Refill(s) Start Date: 03/23/17 Stop Date: 03/28/17 Status: Completed Results BLOOD BANK RESULTS 1 2 3 Most recent to oldest [Reference Range]: B NEG *Unknown* (03/21/17 2:26 PM) ABO/Rh Negative (03/21/17 2:26 PM) Antibody Scrn ELECTROLYTES 1 2 3 Most recent to oldest [Reference Range]: 138 mEq/L (03/23/17 6:32 AM) 135 mEq/L (03/22/17 6:11 AM) 137 mEq/L (03/21/17 9:18 AM) Sodium Lvl [135-145 mEq/L] 3.8 mEq/L (03/23/17 6:32 AM) 4.3 mEq/L (03/22/17 6:11 AM) 4.0 mEq/L 1 (03/21/17 9:18 AM) Potassium Lvl [3.5-5.1 mEq/L] 106 mEq/L (03/23/17 6:32 AM) 104 mEq/L (03/22/17 6:11 AM) 102 mEq/L (03/21/17 9:18 AM) Chloride Lvl [95-109 mEq/L] 21 mEq/L *LOW* (03/23/17 6:32 AM) 23 mEq/L *LOW* (03/22/17 6:11 AM) 22 mEq/L *LOW* (03/21/17 9:18 AM) CO2 [24-32 mEq/L] 14.8 mEq/L (03/23/17 6:32 AM) 12.3 mEq/L (03/22/17 6:11 AM) 17.0 mEq/L (03/21/17 9:18 AM) AGAP [10.0-20.0 mEq/L] 1Result Comment: Specimen Slightly Hemolyzed. CHEM PANEL 1 2 3 Most recent to oldest [Reference Range]: 1.58 mg/dL *HI* (03/23/17 6:32 AM) 1.61 mg/dL *HI* (03/22/17 6:11 AM) 1.67 mg/dL *HI* (03/21/17 9:18 AM) Creatinine Lvl [0.50-1.40 mg/dL] 57 mL/min/1.73m2 1 *NA* (03/23/17 6:32 AM) 56 mL/min/1.73m2 2 *NA* (03/22/17 6:11 AM) 53 mL/min/1.73m2 3 *NA* (03/21/17 9:18 AM) eGFR 20 mg/dL (03/23/17 6:32 AM) 22 mg/dL (03/22/17 6:11 AM) 23 mg/dL *HI* (03/21/17 9:18 AM) BUN [7-22 mg/dL] 91 mg/dL (03/23/17 6:32 AM) 102 mg/dL *HI* (03/22/17 6:11 AM) 105 mg/dL *HI* (03/21/17 9:18 AM) Glucose Lvl [70-99 mg/dL] 7.5 mg/dL *LOW* (03/23/17 6:32 AM) 7.3 mg/dL *LOW* (03/22/17 6:11 AM) 8.6 mg/dL (03/21/17 9:18 AM) Calcium Lvl [8.5-10.5 mg/dL] 3.5 mg/dL (03/22/17 6:11 AM) Phosphorus [2.5-4.5 mg/dL] 2.0 mg/dL (03/22/17 6:11 AM) Magnesium Lvl [1.8-2.4 mg/dL] 1.1 mMol/L (03/21/17 2:42 PM) Lactic Acid Lvl [0.5-2.2 mMol/L] 3.6 mmol/L *HI* (03/21/17 9:18 AM) Lactic Acid WB [0.5-2.2 mmol/L] 13.0 ng/mL *LOW* (03/22/17 6:11 AM) Vitamin D, 25-OH, Total [30.0-100.0 ng/mL] 1Result Comment: The eGFR is calculated using the CKD-EPI formula. In most young, healthy individuals the eGFR will be >90 mL/min/1.73m2. The eGFR declines with age. An eGFR of 60-89 may be normal in some populations, particularly the elderly, for whom the CKD-EPI formula has not been extensively validated. Use of the eGFR is not recommended in the following populations: Individuals with unstable creatinine concentrations, including patients and those with serious co-morbid conditions. Patients with extremes in muscle mass or diet. The data above are obtained from the National Kid[employer] Disease Education Program ( NK[employer]) which additionally recommends that when the eGFR is used in patients with extremes of body mass index for purposes of drug dosing, the eGFR should be mul tiplied by the estimated BMI. 2Result Comment: The eGFR is calculated using the CKD-EPI formula. In most young, healthy individuals the eGFR will be >90 mL/min/1.73m2. The eGFR declines with age. An eGFR of 60-89 may be normal in some populations, particularly the elderly, for whom the CKD-EPI formula has not been extensively validated. Use of the eGFR is not recommended in the following populations: Individuals with unstable creatinine concentrations, including patients and those with serious co-morbid conditions. Patients with extremes in muscle mass or diet. The data above are obtained from the [employer] ( [employer]) which additionally recommends that when the eGFR is used in patients with extremes of body mass index for purposes of drug dosing, the eGFR should be mul tiplied by the estimated BMI. 3Result Comment: The eGFR is calculated using the CKD-EPI formula. In most young, healthy individuals the eGFR will be >90 mL/min/1.73m2. The eGFR declines with age. An eGFR of 60-89 may be normal in some populations, particularly the elderly, for whom the CKD-EPI formula has not been extensively validated. Use of the eGFR is not recommended in the following populations: Individuals with unstable creatinine concentrations, including patients and those with serious co-morbid conditions. Patients with extremes in muscle mass or diet. The data above are obtained from the [employer] ( [employer]) which additionally recommends that when the eGFR is used in patients with extremes of body mass index for purposes of drug dosing, the eGFR should be mul tiplied by the estimated BMI. CARDIAC ENZYMES 1 2 3 Most recent to oldest [Reference Range]: 226 unit/L *HI* (03/21/17 9:18 AM) Total CK [12-191 unit/L] HEMATOLOGY 1 2 3 Most recent to oldest [Reference Range]: 6.4 K/CMM (03/23/17 6:32 AM) 10.9 K/CMM *HI* (03/22/17 6:11 AM) 14.2 K/CMM *HI* (03/21/17 9:18 AM) WBC [3.7-10.4 K/CMM] 2.92 M/CMM *LOW* (03/23/17 6:32 AM) 2.95 M/CMM *LOW* (03/22/17 6:11 AM) 3.73 M/CMM *LOW* (03/21/17 9:18 AM) RBC [4.70-6.10 M/CMM] 8.6 g/dL *LOW* (03/23/17 6:32 AM) 8.9 g/dL *LOW* (03/22/17 6:11 AM) 10.8 g/dL *LOW* (03/21/17 9:18 AM) Hgb [14.0-18.0 g/dL] 26.2 % *LOW* (03/23/17 6:32 AM) 26.4 % *LOW* (03/22/17 6:11 AM) 33.6 % *LOW* (03/21/17 9:18 AM) Hct [42.0-54.0 %] 89.6 fL (03/23/17 6:32 AM) 89.6 fL (03/22/17 6:11 AM) 90.1 fL (03/21/17 9:18 AM) MCV [80.0-94.0 fL] 29.5 pg (03/23/17 6:32 AM) 30.1 pg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
--- OUTSIDE RECORDS SUMMARY | 2018-07-24 06:49 | XMS REPORT | Continuity of Care Document ---
Author Author [facility] Interface Address Unknown Phone Unavailable Problems Problem Status Onset Date Classification Date Reported Comments Source OPEN FEMUR FRACTURE, LEFT Active 03/21/2017 [facility] FEMUR FRACTURE Active 03/21/2017 [facility] SACRAL WOUND Active 07/09/2013 [facility] Unspecified fracture of left femur, initial encounter for open fracture type I or II 06/29/2017 [facility] Fall from bed, initial encounter 06/29/2017 [facility] Paraplegia, unspecified 06/29/2017 [facility] Acute kidney failure, unspecified 06/29/2017 [facility] Essential hypertension 06/29/2017 [facility] Vitamin D deficiency, unspecified 06/29/2017 [facility] Obesity, unspecified 06/29/2017 [facility] Body mass index 31.0-31.9, adult 06/29/2017 [facility] Pressure ulcer of sacral region, stage 4 06/29/2017 [facility] Neuromuscular dysfunction of bladder, unspecified 06/29/2017 [facility] Anemia, unspecified 06/29/2017 [facility] Elevated white blood cell count, unspecified 06/29/2017 [facility] Dependence on wheelchair 06/29/2017 [facility] 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 06/29/2017 [facility] HTN (<span [id number]</span>) Active Problem 06/29/2017 [facility] WOUND DISRUPTION NOS Active [facility] UNSP FRACTURE OF LEFT FEMUR, INIT FOR OP Active [facility] Medications Medication Details Route Status Patient Instructions Ordering Provider Order Date Source Ergocalciferol 35935 UNT Oral Capsule 50,000 IntlUnit=1 cap, PO, QFri, 0 Refill(s) Active 03/23/2017 [facility] enoxaparin 30 mg/0.3 mL subcutaneous solution 30 mg, SUB- Q, BID, X 19 day, # 38 inj, 0 Refill(s), Pharmacy: [id number], patient needs 19 day supply No Longer Active 03/23/2017 [facility] tramadol hydrochloride 50 MG Oral Tablet 50 mg=1 tab, PO, Q6H, PRN Pain Score 6-10, X 5 day, # 20 tab, 0 Refill(s) No Longer Active 03/23/2017 [facility] sennosides, CHCF 8.6 MG Oral Tablet 17.2 mg=2 tab, PO, Bedtime, X 7 day, # 14 tab, 0 Refill(s), Pharmacy: [facility] No Longer Active 03/23/2017 [facility] losartan 50 mg oral tablet 50 mg=1 tab, PO, Daily, 0 Refill(s) Active 03/23/2017 [facility] senna 8.6 mg oral tablet 17.2 mg=2 tab, PO, Bedtime, X 7 day, # 14 tab, 0 Refill(s), Pharmacy: [facility] Active 03/23/2017 [facility] Losartan 50 mg, Route: PO, Drug form: TAB, Daily, Dosing Weight 95.455, kg, Start date: 03/23/17 9:00:00 [employer], Duration: 30 day, Stop date: 04/21/17 9:00:00 [employer] No Longer Active 03/23/2017 [facility] Dakins Half Strength Solution 0.25% topical 1 appl, Route: TOP, Drug Form: SOLN, Dosing Weight 95.455, kg, Daily, Start date: 03/23/17 9:00:00 [employer], Duration: 30 day, Stop date: 04/21/17 9:00:00 [employer] No Longer Active 03/23/2017 [facility] Enoxaparin 30 mg, 0.3 mL, Route: SUB-Q, Drug form: INJ, Q12H, Dosing Weight 93.182, kg, Start date: 03/22/17 13:00:00 [employer], Stop date: 04/20/17 0:00:00 CSTNotes: (Same as: Lovenox) No Longer Active 03/22/2017 [facility] Dakins Quarter Strength Solution 1 appl, Route: TOP, Drug Form: SOLN, Dosing Weight 95.455, kg, Daily, Start date: 03/22/17 11:00:00 [employer], Duration: 30 day, Stop date: 04/20/17 21:00:00 CSTNotes: (Dakin's (0.125%=1/4 strength) 473ml top SOLN) For external use only. Note: quarter strength=0.125% sodium hypochlorite. No Longer Active 03/22/2017 [facility] Losartan 50 mg, 1 tab, Route: PO, Drug form: TAB, Daily, Dosing Weight 95.455, kg, Priority: NOW, Start date: 03/22/17 9:57:00 [employer], Duration: 30 day, Stop date: 04/21/17 9:00:00 CSTNotes: (Same as: Cozaar) No Longer Active 03/22/2017 [facility] Sodium Chloride 0.9% IV 1,000 mL 1,000 mL, Rate: 100 ml/hr, Infuse over: 10 hr, Route: IV, Dosing Weight 95.455 kg, Total Volume: 1,000, Start date: 03/22/17 9:52:00 [employer], Duration: 1 doses or times, Stop date: 03/22/17 19:51:00 [employer], 2.18, m2 Inactive 03/22/2017 [facility] Ergocalciferol 59460 UNT Oral Capsule 50,000 IntlUnit, 1 cap, Route: PO, Drug form: CAP, QFri, Dosing Weight 95.455, kg, Start date: 03/22/17 9:00:00 [employer], Duration: 30 day, Stop date: 04/19/17 9:00:00 CSTNotes: (Same as: Vitamin D) "Do Not Crush" No Longer Active 03/22/2017 [facility] gabapentin 300 MG Oral Capsule 300 mg, 1 cap, Route: PO, Drug form: CAP, BID, Dosing Weight 93.182, kg, Start date: 03/22/17 9:00:00 [employer], Duration: 30 day, Stop date: 04/20/17 17:00:00 CSTNotes: (Same as: Neurontin) No Longer Active 03/22/2017 [facility] Docusate 100 mg, 1 cap, Route: PO, Drug form: CAP, BID, Dosing Weight 93.182, kg, Start date: 03/22/17 9:00:00 [employer], Duration: 30 day, Stop date: 04/20/17 17:00:00 CSTNotes: (Same as: Colace) (Do Not Crush) No Longer Active 03/22/2017 [facility] Acetaminophen 325 MG / Hydrocodone Bitartrate 5 MG Oral Tablet [[place] 5/325] 1 tab, Route: PO, Drug Form: TAB, Dosing Weight 95.455, kg, Q6H, PRN Pain Score 6-10, Start date: 03/22/17 7:18:00 [employer], Duration: 30 day, Stop date: 04/21/17 7:17:00 CSTNotes: (Same as: [place] 325/5) Do not exceed 4gm/day of acetaminophen. No Longer Active 03/22/2017 [facility] Ancef 2 gm, 20 mL, Route: IVP, Drug form: SOLN, ABXQ8H, Dosing Weight 95.455, kg, Start date: 03/22/17 6:00:00 [employer], Duration: 2 day, Stop date: 03/24/17 0:00:00 [employer], ABX Indication: Open Wound ProphylaxisNotes: (Same as Ancef) No Longer Active 03/22/2017 [facility] Cefazolin 2 gm, Route: IVPB, ABXQ8H, Dosing Weight 93.182, kg, Start date: 03/22/17 0:00:00 [employer], Duration: 3 doses or times, Stop date: 03/22/17 16:00:00 [employer], ABX Indication: Surgical ProphylaxisNotes: (Same As: Ancef, Kefzol) MEDICATION WASTE Product Size: 1000 mg Product Wasted: 0 mg Inactive 03/22/2017 [facility] Enoxaparin 40 mg, 0.4 mL, Route: SUB-Q, Drug form: INJ, [id number], Dosing Weight 93.182, kg, Start date: 03/21/17 21:00:00 [employer], Stop date: 04/19/17 21:00:00 CSTNotes: (Same as: Lovenox) No Longer Active 03/22/2017 [facility] sennosides, CHCF 17.2 mg, 2 tab, Route: PO, Drug Form: TAB, Dosing Weight 93.182, kg, Bedtime, Start date: 03/21/17 21:00:00 [employer], Duration: 30 day, Stop date: 04/19/17 21:00:00 CSTNotes: (Same as: Senokot) No Longer Active 03/22/2017 [facility] gabapentin 300 mg, Route: PO, Q8Hnow, Dosing Weight 93.182, kg, Start date: 03/21/17 21:00:00 [employer], Duration: 30 day, Stop date: 04/20/17 13:00:00 [employer] Inactive 03/22/2017 [facility] Acetaminophen 500 mg, 1 tab, Route: PO, Drug form: TAB, Q6Hnow, Dosing Weight 93.182, kg, Start date: 03/21/17 21:00:00 [employer], Stop date: 04/20/17 18:00:00 CSTNotes: Max acetaminophen 4000 mg/day (4 gm/day). (Same as: Tylenol Extra Strength) No Longer Active 03/22/2017 [facility] metoprolol tartrate 50 mg, 1 tab, Route: PO, Drug form: TAB, Q12H, Dosing Weight 93.182, kg, Start date: 03/21/17 21:00:00 [employer], Duration: 30 day, Stop date: 04/20/17 9:00:00 CSTNotes: (Same as: Lopressor) No Longer Active 03/22/2017 [facility] Oxycodone Hydrochloride 5 MG Oral Tablet 5 mg, Route: PO, Drug form: TAB, Q4H, Dosing Weight 93.182, kg, PRN Pain Score 4-6, Start date: 03/21/17 20:34:00 [employer], Duration: 30 day, Stop date: 04/20/17 20:33:00 [employer] No Longer Active 03/22/2017 [facility] Ondansetron 4 mg, 2 mL, Route: IVP, Drug form: INJ, Q8H, Dosing Weight 93.182, kg, PRN Nausea & Vomiting, Start date: 03/21/17 20:34:00 [employer], Duration: 30 day, Stop date: 04/20/17 20:33:00 CSTNotes: (Same as: Zofran) MEDICATION WASTE Product Size: 4 mg Product Wasted: 0 mg No Longer Active 03/22/2017 [facility] Melatonin 3 mg, 1 tab, Route: PO, Drug form: TAB, Bedtime, Dosing Weight 93.182, kg, PRN Insomnia, Start date: 03/21/17 20:34:00 [employer], Duration: 30 day, Stop date: 04/20/17 20:33:00 CSTNotes: (Same as: Melatonin) No Longer Active 03/22/2017 [facility] POLYETHYLENE GLYCOL 3350 17 gm, 1 pkt, Route: PO, Drug form: PWDR, Daily, Dosing Weight 93.182, kg, PRN Constipation, Start date: 03/21/17 20:34:00 [employer], Duration: 30 day, Stop date: 04/20/17 20:33:00 CSTNotes: Dissolve in 8 oz of water or juice. (Same as: Miralax) No Longer Active 03/22/2017 [facility] Methocarbamol 1,000 mg, 2 tab, Route: PO, Drug form: TAB, Q8H, Dosing Weight 93.182, kg, PRN Muscle Spasms, Start date: 03/21/17 20:34:00 [employer], Duration: 30 day, Stop date: 04/20/17 20:33:00 CSTNotes: (Same as:Robaxin) No Longer Active 03/22/2017 [facility] D5W 1/2NS 1,000 mL 1,000 mL, Rate: 100 ml/hr, Infuse over: 10 hr, Route: IV, Dosing Weight 93.182 kg, Total Volume: 1,000, Priority: STAT, Start date: 03/21/17 20:32:00 [employer], Duration: 30 day, Stop date: 04/20/17 20:31: 00 [employer], 2.15, m2 No Longer Active 03/22/2017 [facility] losartan 100 mg oral tablet TK 1 T PO 3 TIMES A WK No Longer Active 03/22/2017 [facility] meloxicam 7.5 mg oral tablet TK 1 T PO QHS Active 03/22/2017 [facility] Flumazenil 0.2 mg, Route: IVP, PRN, Dosing Weight 93.182, kg, PRN Benzodiazepine Reversal, Initial dose, Start date: 03/21/17 18:59:00 [employer], Duration: 30 day, Stop date: 04/20/17 18:58:00 [employer] No Longer Active 03/22/2017 [facility] Naloxone 0.4 mg, Route: IVP, Q2MIN, Dosing Weight 93.182, kg, PRN Narcotic Reversal, Start date: 03/21/17 18:59:00 [employer], Duration: 8 doses or times, Stop date: Limited # of times No Longer Active 03/22/2017 [facility] Oxycodone 5 mg, Route: PO, Drug form: TAB, Q4H, Dosing Weight 93.182, kg, PRN Pain Score 4-6, Start date: 03/21/17 18:59:00 [employer], Duration: 30 day, Stop date: 04/20/17 18:58:00 [employer]LE[employer] No Longer Active 03/22/2017 [facility] Ondansetron 4 mg, Route: IVP, ONCE, Dosing Weight 93.182, kg, PRN Nausea & Vomiting, Start date: 03/21/17 18:59:00 [employer] No Longer Active 03/22/2017 [facility] Hydromorphone 0.5 mg, Route: IVP, Q5Min, Dosing Weight 93.182, kg, PRN Pain Score 7-10, Start date: 03/21/17 18:59:00 [employer], Duration: 4 doses or times, Stop date: Limited # of times No Longer Active 03/22/2017 [facility] Hydralazine 10 mg, Route: IVP, Q20Min, Dosing Weight 93.182, kg, PRN Elevated BP, Start date: 03/21/17 18:59:00 [employer], Duration: 2 doses or times, Stop date: Limited # of times No Longer Active 03/22/2017 [facility] Labetalol 10 mg, Route: IVP, Q5Min, Dosing Weight 93.182, kg, PRN Elevated BP, Start date: 03/21/17 18:59:00 [employer], Duration: 5 doses or times, Stop date: Limited # of times No Longer Active 03/22/2017 [facility] Metoprolol 1 mg, Route: IVP, Q5Min, Dosing Weight 93.182, kg, PRN Other -See Comment, Start date: 03/21/17 18:59:00 [employer], Duration: 5 doses or times, Stop date: Limited # of times No Longer Active 03/22/2017 [facility] Morphine 4 mg, Route: IVP, Q5Min, Dosing Weight 93.182, kg, PRN Pain Score 7-10, Start date: 03/21/17 18:59:00 [employer], Duration: 3 doses or times, Stop date: Limited # of times No Longer Active 03/22/2017 [facility] glycopyrrolate (ANES) Route: IV, Drug form: INJ, ONCE, Stop date: 03/21/17 18:54:00 [employer] Inactive 03/22/2017 [facility] ondansetron (ANES) Route: IV, Drug form: INJ, ONCE, Stop date: 03/21/17 18:54:00 [employer] Inactive 03/22/2017 [facility] neostigmine (ANES) Route: IV, Drug form: INJ, ONCE, Stop date: 03/21/17 18:54:00 ELE[employer] Inactive 03/22/2017 [facility] hydromorphone (ANES) Route: IV, Drug form: INJ, ONCE, Stop date: 03/21/17 18:49:00 [employer] Inactive 03/22/2017 [facility] acetaminophen ([facility]) 10 mg Route: IV, Drug form: INJ, Start date: 03/21/17 18:05:00 [employer]LE[employer], Stop date: 03/21/17 19:05:00 ELE[employer] Inactive 03/22/2017 [facility] dexamethasone (ANES) Route: IV, Drug form: INJ, ONCE, Stop date: 03/21/17 16:53:00 E[employer] Inactive 03/21/2017 [facility] propofol (ANES) Route: IV, Drug form: INJ, ONCE, Stop date: 03/21/17 16:43:00 ELE[employer] Inactive 03/21/2017 [facility] rocuronium (ANES) Route: IV, Drug form: INJ, ONCE, Stop date: 03/21/17 16:43:00 E[employer] Inactive 03/21/2017 [facility] lidocaine (ANES) Route: IV, Drug form: INJ, ONCE, Stop date: 03/21/17 16:43:00 ELE[employer] Inactive 03/21/2017 [facility] fentaNYL (ANES) Route: IV, Drug form: INJ, ONCE, Stop date: 03/21/17 16:43:00 ELE[employer]ER Inactive 03/21/2017 [facility] ketAMINE (ANES) Route: IV, Drug form: INJ, ONCE, Stop date: 03/21/17 16:43:00 ELE[employer] Inactive 03/21/2017 [facility] dexmedetomidine (ANES) + Sodium Chloride 0.9% IV (ANES) 98 mL Route: IV, Drug form: INJ, ONCE, Stop date: 03/21/17 16:43:00 [employer] Inactive 03/21/2017 [facility] midazolam (ANES) Route: IV, Drug form: SOLN, ONCE, Stop date: 03/21/17 16:38:00 ELE[employer] Inactive 03/21/2017 [facility] phenylephrine (ANES) Route: IV, Drug form: INJ, ONCE, Stop date: 03/21/17 16:28:00 ELE[employer] Inactive 03/21/2017 [facility] ceFAZolin (ANES) Route: IV, Drug form: INJ, ONCE, Stop date: 03/21/17 16:23:00 ELE[employer] Inactive 03/21/2017 [facility] Ancef + sterile water 20 mL 2 gm, Route: IV, Q8H, Dosing Weight 93.182, kg, Start date: 03/21/17 16:00:00 [employer], Duration: 48 hr, Stop date: 03/23/17 8:00:00 ELE[employer], ABX Indication: Open Wound ProphylaxisNotes: (Same As: Ancef, Kefzol) MEDICATION WASTE Product Size: 1000 mg Product Wasted: ___ mg Inactive 03/21/2017 [facility] Lactated Ringers Injection IV (ANES) 1000 mL Route: IV, Total Volume: 1,000, Start date: 03/21/17 15:24:00 ELE[employer], Stop date: 03/21/17 16:24:00 ELE[employer]ARY [employer]ER Inactive 03/21/2017 [facility] Ondansetron 4 mg, Route: IVP, Drug form: INJ, ONCE, Dosing Weight 93.182, kg, Priority: STAT, Start date: 03/21/17 10:39:00 E[employer], Stop date: 03/21/17 10:39:00 ELEMENT[employer] Inactive 03/21/2017 [facility] Morphine 4 mg, Route: IVP, ONCE, Dosing Weight 93.182, kg, Priority: STAT, Start date: 03/21/17 10:39:00 ELE[employer], Stop date: 03/21/17 10:39:00 ELEMENTARY [employer]ER Inactive 03/21/2017 [facility] Sodium Chloride 0.9% (Bolus) IV 1,000 mL, Infuse Over: 1 hr, Route: IV, ONCE, Priority: STAT, Dosing Weight 93.182 kg, Start date: 03/21/17 9:17:00 ELE[employer], Stop date: 03/21/17 9:17:00 ELEMENTARY [employer]ER Inactive 03/21/2017 [facility] Ancef 2 gm, Route: IVPB, ONCE, Dosing Weight 93.182, kg, Priority: STAT, Start date: 03/21/17 9:17:00 ELEMENT[employer], Stop date: 03/21/17 9:17:00 ELE[employer], ABX Indication: Open Wound Prophylaxis Inactive 03/21/2017 [facility] Metoprolol Tartrate 50 mg oral tablet 50 mg=1 tab, PO, BID, # 60 tab, 0 Refill(s) Active 03/21/2017 [facility] Ergocalciferol 84700 UNT Oral Capsule 50,000 IntlUnit=1 cap, PO, qWeek, # 8 cap, 0 Refill(s) No Longer Active 03/21/2017 [facility] gabapentin 300 MG Oral Capsule 300 mg=1 cap, PO, BID, # 90 cap, 1 Refill(s) Active 03/21/2017 [facility] Allergies, Adverse Reactions, Alerts Substance Category Reaction Severity Reaction type Status Date Reported Comments Source Immunizations Immunization Date Given Site Status Last Updated Comments Source Results Order Name Results Value Reference Range Date Interpretation Comments Source ELECTROLYTES AGAP 14.8 meq/L 10.0 - 20.0 03/23/2017 [facility] ELECTROLYTES eGFR 57 mL/min/1.73m2 03/23/2017 Result Comment: The eGFR is calculated using the [...] from the National Kidney Disease Education Program (NKDEP) which additionally recommends that when the eGFR is used in patients with extremes of body mass index for purposes of drug dosing, the eGFR should be multiplied by the estimated BMI. [facility] ELECTROLYTES CO2 21 meq/L 24 - 32 03/23/2017 [facility] ELECTROLYTES Chloride Lvl 106 meq/L 95 - 109 03/23/2017 [facility] ELECTROLYTES Calcium Lvl 7.5 mg/dL 8.5 - 10.5 03/23/2017 [facility] ELECTROLYTES Potassium Lvl 3.8 meq/L 3.5 - 5.1 03/23/2017 [facility] ELECTROLYTES Sodium Lvl 138 meq/L 135 - 145 03/23/2017 [facility] ELECTROLYTES Creatinine Lvl 1.58 mg/dL 0.50 - 1.40 03/23/2017 [facility] ELECTROLYTES BUN 20 mg/dL 7 - 22 03/23/2017 [facility] ELECTROLYTES Glucose Lvl 91 mg/dL 70 - 99 03/23/2017 [facility] HEMATOLOGY Eosinophils 0.3 % 0.0 - 4.0 03/23/2017 [facility] HEMATOLOGY Segs-Bands # 5.1 K/CMM 1.5 - 8.1 03/23/2017 [facility] HEMATOLOGY Lymphocytes # 0.9 K/CMM 1.0 - 5.5 03/23/2017 [facility] HEMATOLOGY Basophils 0.2 % 0.0 - 1.0 03/23/2017 [facility] HEMATOLOGY Monocytes 6.9 % 2.0 - 12.0 03/23/2017 [facility] HEMATOLOGY Segs 79.3 % 45.0 - 75.0 03/23/2017 [facility] HEMATOLOGY Lymphocytes 13.3 % 20.0 - 40.0 03/23/2017 [facility] HEMATOLOGY Monocytes # 0.4 K/CMM 0.0 - 0.8 03/23/2017 [facility] HEMATOLOGY Hct 26.2 % 42.0 - 54.0 03/23/2017 [facility] HEMATOLOGY RBC 2.92 M/CMM 4.70 - 6.10 03/23/2017 [facility] HEMATOLOGY WBC 6.4 K/CMM 3.7 - 10.4 03/23/2017 [facility] HEMATOLOGY Hgb 8.6 g/dL 14.0 - 18.0 03/23/2017 [facility] HEMATOLOGY MPV 7.2 fL 7.4 - 10.4 03/23/2017 [facility] HEMATOLOGY Platelet 305 K/CMM 133 - 450 03/23/2017 [facility] HEMATOLOGY MCH 29.5 pg 27.0 - 31.0 03/23/2017 [facility] HEMATOLOGY MCV 89.6 fL 80.0 - 94.0 03/23/2017 [facility] HEMATOLOGY RDW 17.1 % 11.5 - 14.5 03/23/2017 [facility] HEMATOLOGY MCHC 33.0 g/dL 32.0 - 36.0 03/23/2017 [facility] CHEM PANEL Magnesium Lvl 2.0 mg/dL 1.8 - 2.4 03/22/2017 [facility] CHEM PANEL Phosphorus 3.5 mg/dL 2.5 - 4.5 03/22/2017 [facility] CHEM PANEL eGFR 56 mL/min/1.73m2 03/22/2017 Result Comment: The eGFR is calculated using the [...] from the National Kidney Disease Education Program (NKDEP) which additionally recommends that when the eGFR is used in patients with extremes of body mass index for purposes of drug dosing, the eGFR should be multiplied by the estimated BMI. [facility] CHEM PANEL Creatinine Lvl 1.61 mg/dL 0.50 - 1.40 03/22/2017 [facility] CHEM PANEL Potassium Lvl 4.3 meq/L 3.5 - 5.1 03/22/2017 [facility] CHEM PANEL BUN 22 mg/dL 7 - 22 03/22/2017 [facility] CHEM PANEL Glucose Lvl 102 mg/dL 70 - 99 03/22/2017 [facility] CHEM PANEL Sodium Lvl 135 meq/L 135 - 145 03/22/2017 [facility] CHEM PANEL AGAP 12.3 meq/L 10.0 - 20.0 03/22/2017 [facility] CHEM PANEL CO2 23 meq/L 24 - 32 03/22/2017 [facility] CHEM PANEL Chloride Lvl 104 meq/L 95 - 109 03/22/2017 [facility] CHEM PANEL Calcium Lvl 7.3 mg/dL 8.5 - 10.5 03/22/2017 [facility] CHEM PANEL Vitamin D, 25-OH, Total 13.0 ng/mL 30.0 - 100.0 03/22/2017 [facility] HEMATOLOGY RDW 16.8 % 11.5 - 14.5 03/22/2017 [facility] HEMATOLOGY MCHC 33.6 g/dL 32.0 - 36.0 03/22/2017 [facility] HEMATOLOGY Platelet 346 K/CMM 133 - 450 03/22/2017 [facility] HEMATOLOGY MPV 7.2 fL 7.4 - 10.4 03/22/2017 [facility] HEMATOLOGY WBC 10.9 K/CMM 3.7 - 10.4 03/22/2017 [facility] HEMATOLOGY RBC 2.95 M/CMM 4.70 - 6.10 03/22/2017 [facility] HEMATOLOGY Hct 26.4 % 42.0 - 54.0 03/22/2017 [facility] [facility] HEMATOLOGY MCH 30.1 pg 27.0 - 31.0 03/22/2017 [facility] HEMATOLOGY Hgb 8.9 g/dL 14.0 - 18.0 03/22/2017 [facility] HEMATOLOGY MCV 89.6 fL 80.0 - 94.0 03/22/2017 [facility] HEMATOLOGY Lymphocytes # 0.9 K/CMM 1.0 - 5.5 03/22/2017 [facility] HEMATOLOGY Monocytes # 0.6 K/CMM 0.0 - 0.8 03/22/2017 [facility] HEMATOLOGY Basophils 0.1 % 0.0 - 1.0 03/22/2017 [facility] HEMATOLOGY Segs-Bands # 9.4 K/CMM 1.5 - 8.1 03/22/2017 [facility] HEMATOLOGY Lymphocytes 8.3 % 20.0 - 40.0 03/22/2017 [facility] HEMATOLOGY Monocytes 5.7 % 2.0 - 12.0 03/22/2017 [facility] HEMATOLOGY Segs 85.9 % 45.0 - 75.0 03/22/2017 [facility] CHEM PANEL Lactic Acid Lvl 1.1 mMol/L 0.5 - 2.2 03/21/2017 [facility] BLOOD BANK RESULTS ABO/Rh B NEG 03/21/2017 [facility] BLOOD BANK RESULTS Antibody Scrn Negative (03/21/17 2:26 PM) 03/21/2017 [facility] Femur series DX Femur series DX EXAM: XR LEFT FEMUR 2 VIEWS DATE: 03/21/2017 3:36 PM 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 No other change. [place] SECTION: ER 03/21/2017 - - This report was dictated by a Coal Weigher/Fellow. I have personally reviewed the images as well as the Resident's interpretation and agree with the findings. Read by: Lizette Meredith MD Resident: Lizette Meredith MD Dictated Date/time: 03/21/17 18:50 Electronically Signed by: Santosh Paz MD 03/21/17 20:59 FINAL REPORT [facility] CARDIAC ENZYMES Total CK 226 unit/L 12 - 191 03/21/2017 [facility] CHEM PANEL Lactic Acid WB 3.6 mmol/L 0.5 - 2.2 03/21/2017 [facility] ELECTROLYTES AGAP 17.0 meq/L 10.0 - 20.0 03/21/2017 [facility] ELECTROLYTES eGFR 53 mL/min/1.73m2 03/21/2017 Result Comment: The eGFR is calculated using the [...] from the National Kidney Disease Education Program (NKDEP) which additionally recommends that when the eGFR is used in patients with extremes of body mass index for purposes of drug dosing, the eGFR should be multiplied by the estimated BMI. [facility] ELECTROLYTES Calcium Lvl 8.6 mg/dL 8.5 - 10.5 03/21/2017 [facility] ELECTROLYTES CO2 22 meq/L 24 - 32 03/21/2017 [facility] ELECTROLYTES Potassium Lvl 4.0 meq/L 3.5 - 5.1 03/21/2017 Result Comment: Specimen Slightly Hemolyzed. [facility] ELECTROLYTES Sodium Lvl 137 meq/L 135 - 145 03/21/2017 [facility] ELECTROLYTES Creatinine Lvl 1.67 mg/dL 0.50 - 1.40 03/21/2017 [facility] ELECTROLYTES BUN 23 mg/dL 7 - 22 03/21/2017 [facility] ELECTROLYTES Glucose Lvl 105 mg/dL 70 - 99 03/21/2017 [facility] ELECTROLYTES Chloride Lvl 102 meq/L 95 - 109 03/21/2017 [facility] HEMATOLOGY Monocytes # 0.8 K/CMM 0.0 - 0.8 03/21/2017 [facility] HEMATOLOGY Lymphocytes # 1.5 K/CMM 1.0 - 5.5 03/21/2017 [facility] HEMATOLOGY Eosinophils 0.1 % 0.0 - 4.0 03/21/2017 [facility] HEMATOLOGY Basophils 0.2 % 0.0 - 1.0 03/21/2017 [facility] HEMATOLOGY Segs-Bands # 11.8 K/CMM 1.5 - 8.1 03/21/2017 [facility] HEMATOLOGY Lymphocytes 10.8 % 20.0 - 40.0 03/21/2017 [facility] HEMATOLOGY Segs 83.4 % 45.0 - 75.0 03/21/2017 [facility] HEMATOLOGY Monocytes 5.5 % 2.0 - 12.0 03/21/2017 [facility] HEMATOLOGY MPV 7.0 fL 7.4 - 10.4 03/21/2017 [facility] HEMATOLOGY Platelet 469 K/CMM 133 - 450 03/21/2017 [facility] HEMATOLOGY RDW 16.5 % 11.5 - 14.5 03/21/2017 [facility] HEMATOLOGY MCH 28.9 pg 27.0 - 31.0 03/21/2017 [facility] HEMATOLOGY MCV 90.1 fL 80.0 - 94.0 03/21/2017 [facility] HEMATOLOGY Hct 33.6 % 42.0 - 54.0 03/21/2017 [facility] HEMATOLOGY MCHC 32.1 g/dL 32.0 - 36.0 03/21/2017 [facility] HEMATOLOGY Hgb 10.8 g/dL 14.0 - 18.0 03/21/2017 [facility] HEMATOLOGY RBC 3.73 M/CMM 4.70 - 6.10 03/21/2017 [facility] HEMATOLOGY WBC 14.2 K/CMM 3.7 - 10.4 03/21/2017 [facility] Knee 3 views DX Knee 3 views DX EXAM: XR LEFT HIP 2 VIEWS AND AP PELVIS EXAM: XR LEFT FEMUR 2 VIEWS EXAM: XR LEFT KNEE 3 VIEWS EXAM: XR LEFT TIBIA-FIBULA 2 VIEWS DATE: 03/21/2017 9:15 AM 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 FINDINGS: There is an acute mildly displaced spiral fracture through the mid left femoral diaphysis demonstrating about a quarter shaft's width posteromedial displacement of the distal fragment. No intra-articular extension of the fracture. Chronic changes are noted at bilateral hip joints. Left femoral head is not visualized, probably secondary to resorption or resection. Extensive heterotopic ossification surrounds the proximal left femur. There is chronic appearing fracture through the right femoral neck with the femoral shaft displaced superolaterally. Portion of right femoral head is visualized articulating with the right hip. 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 A vascular stent projects over the right hemipelvis. Thoracolumbar spine hardware is partially visualized. Chronic changes are visualized at the left knee with medial bridging osteophytes/heterotopic ossification. There is chronic deformity of the proximal left tibia. Knee joint spaces are relatively preserved. No abnormal erosions. No acute fracture of the knee. No knee joint effusion or significant soft tissue swelling. Chronic deformity of the distal tibia and fibula is noted. Evaluation of the foot is limited. There is left thigh soft tissue swelling associated with the fracture. IMPRESSION: 1. Acute, spiral fracture through the mid left femoral diaphysis demonstrating mild posterior medial displacement of the distal fragment and overlying soft tissue swelling. 2. Chronic osseous changes and bilateral hip joints, ischio pubic rami, knee and ankle joints, as described. 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 FINDINGS: There is an acute mildly displaced spiral fracture through the mid left femoral diaphysis demonstrating about a quarter shaft's width posteromedial displacement of the distal fragment. No intra-articular extension of the fracture. Chronic changes are noted at bilateral hip joints. Left femoral head is not visualized, probably secondary to resorption or resection. Extensive heterotopic ossification surrounds the proximal left femur. There is chronic appearing fracture through the right femoral neck with the femoral shaft displaced superolaterally. Portion of right femoral head is visualized articulating with the right hip. 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 A vascular stent projects over the right hemipelvis. Thoracolumbar spine hardware is partially visualized. Chronic changes are visualized at the left knee with medial bridging osteophytes/heterotopic ossification. There is chronic deformity of the proximal left tibia. Knee joint spaces are relatively preserved. No abnormal erosions. No acute fracture of the knee. No knee joint effusion or significant soft tissue swelling. Chronic deformity of the distal tibia and fibula is noted. Evaluation of the foot is limited. There is left thigh soft tissue swelling associated with the fracture. IMPRESSION: 1. Acute, spiral fracture through the mid left femoral diaphysis demonstrating mild posterior medial displacement of the distal fragment and overlying soft tissue swelling. 2. Chronic osseous changes and bilateral hip joints, ischio pubic rami, knee and ankle joints, as described. 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 FINDINGS: No acute fracture or malalignment is identified. No soft tissue abnormality is identified. IMPRESSION: No acute radiographic abnormality. 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 FINDINGS: There is an acute mildly displaced spiral fracture through the mid left femoral diaphysis demonstrating about a quarter shaft's width posteromedial displacement of the distal fragment. No intra-articular extension of the fracture. Chronic changes are noted at bilateral hip joints. Left femoral head is not visualized, probably secondary to resorption or resection. Extensive heterotopic ossification surrounds the proximal left femur. There is chronic appearing fracture through the right femoral neck with the femoral shaft displaced superolaterally. Portion of right femoral head is visualized articulating with the right hip. 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 A vascular stent projects over the right hemipelvis. Thoracolumbar spine hardware is partially visualized. Chronic changes are visualized at the left knee with medial bridging osteophytes/heterotopic ossification. There is chronic deformity of the proximal left tibia. Knee joint spaces are relatively preserved. No abnormal erosions. No acute fracture of the knee. No knee joint effusion or significant soft tissue swelling. Chronic deformity of the distal tibia and fibula is noted. Evaluation of the foot is limited. There is left thigh soft tissue swelling associated with the fracture. IMPRESSION: 1. Acute, spiral fracture through the mid left femoral diaphysis demonstrating mild posterior medial displacement of the distal fragment and overlying soft tissue swelling. 2. Chronic osseous changes and bilateral hip joints, ischio pubic rami, knee and ankle joints, as described. 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 FINDINGS: There is an acute mildly displaced spiral fracture through the mid left femoral diaphysis demonstrating about a quarter shaft's width posteromedial displacement of the distal fragment. No intra-articular extension of the fracture. Chronic changes are noted at bilateral hip joints. Left femoral head is not visualized, probably secondary to resorption or resection. Extensive heterotopic ossification surrounds the proximal left femur. There is chronic appearing fracture through the right femoral neck with the femoral shaft displaced superolaterally. Portion of right femoral head is visualized articulating with the right hip. 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 A vascular stent projects over the right hemipelvis. Thoracolumbar spine hardware is partially visualized. Chronic changes are visualized at the left knee with medial bridging osteophytes/heterotopic ossification. There is chronic deformity of the proximal left tibia. Knee joint spaces are relatively preserved. No abnormal erosions. No acute fracture of the knee. No knee joint effusion or significant soft tissue swelling. Chronic deformity of the distal tibia and fibula is noted. Evaluation of the foot is limited. There is left thigh soft tissue swelling associated with the fracture. IMPRESSION: 1. Acute, spiral fracture through the mid left femoral diaphysis demonstrating mild posterior medial displacement of the distal fragment and overlying soft tissue swelling. 2. Chronic osseous changes and bilateral hip joints, ischio pubic rami, knee and ankle joints, as described. 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 Within this limitation, lungs are clear. No focal consolidation. No pleural effusions or pneumothorax. Thoracolumbar spine hardware is partially visualized. No acute osseous abnormality. Soft tissues are within normal limits. IMPRESSION: No acute radiographic abnormality of the chest. 03/21/2017 - - Read by: Irwin Llanos MD Dictated Date/time: 03/21/17 10:46 Electronically Signed by: Irwin Llanos MD 03/21/17 10:46 FINAL REPORT [facility] Vital Signs Vital Sign Value Date Comments Source Respitory Rate 18 03/23/2017 [facility] Systolic (mm Hg) 126 03/23/2017 [facility] Diastolic (mm Hg) 75 03/23/2017 [facility] Temperature Oral (F) 98.2 F 03/23/2017 [facility] Heart Rate 75 03/23/2017 [facility] Respitory Rate 18 03/23/2017 [facility] Systolic (mm Hg) 123 03/23/2017 [facility] Diastolic (mm Hg) 78 03/23/2017 [facility] Heart Rate 84 03/23/2017 [facility] Temperature Oral (F) 98.0 F 03/23/2017 [facility] Systolic (mm Hg) 161 03/23/2017 [facility] Diastolic (mm Hg) 101 03/23/2017 [facility] Respitory Rate 18 03/23/2017 [facility] Temperature Oral (F) 98.0 F 03/23/2017 [facility] Heart Rate 76 03/23/2017 [facility] BMI Calculated 31.08 03/22/2017 [facility] Height 175.26 cm 03/22/2017 [facility] Weight 95.455 03/22/2017 [facility] Height 175.26 cm 03/22/2017 [facility] Height 175.26 cm 03/21/2017 [facility] BMI Calculated 30.34 03/21/2017 [facility] Weight 93.182 03/21/2017 [facility] Encounters Location Location Details Encounter Type Encounter Number Reason For Visit Attending Provider ADM Date DC Date Status Source [facility] Inpatient [id number] Shona Reynoso 03/21/2017 03/24/2017 [facility] Procedures Procedure Code Date Perfomer Comments Source 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
--- OUTSIDE RECORDS SUMMARY | 2018-07-24 06:49 | XMS REPORT | Summary of Care ---
Author Author [facility] Organization [facility] Address Unknown Phone Unavailable Encounter HQ Deandre(FIN) [id number] Date(s): 03/21/17 - 03/23/17 [facility] [address] [employer] provided by [facility] [employer] [facility] [place] [id number]- Encounter Diagnosis Unspecified fracture of left femur, initial encounter for open fracture type I o r II (Final) - Discharge Disposition: Home or Self Care Attending Physician: Shona Reynoso MD Admitting Physician: [...] 93.182, kg, Star t date: 03/21/17 21:00:00 MEDICAL SERVICES COORDINATOR, Stop date: 04/20/17 18:00:00 MEDICAL SERVICES COORDINATOR Notes: Max acetaminophen 4000 mg/day (4 gm/day). (Same as: Tylenol Extra Streng th) Start Date: 03/21/17 Stop Date: 03/23/17 Status: Discontinued acetaminophen (ANES) 10 mg Route: IV, Drug form: INJ, Start date: 03/21/17 18:05:00 MEDICAL SERVICES COORDINATOR, Stop date: 8 19:05:00 MEDICAL SERVICES COORDINATOR Start Date: 03/21/17 Stop Date: 03/21/17 Status: Completed Ancef 2 gm, 20 mL, Route: IVP, Drug form: SOLN, ABXQ8H, Dosing Weight 95.455, kg, Star t date: 03/22/17 6:00:00 MEDICAL SERVICES COORDINATOR, Duration: 2 day, Stop date: 03/24/17 0:00:00 MEDICAL SERVICES COORDINATOR, ABX Indication: Open Wound Prophylaxis Notes: (Same as Ancef) Start Date: 03/22/17 Stop Date: 03/23/17 Status: Discontinued Ancef 2 gm, Route: IVPB, ONCE, Dosing Weight 93.182, kg, Priority: STAT, Start date: 0 03/21/17 9:17:00 MEDICAL SERVICES COORDINATOR, Stop date: 03/21/17 9:17:00 MEDICAL SERVICES COORDINATOR, ABX Indication: Open Wound Prophylaxis Start Date: 03/21/17 Stop Date: 03/21/17 Status: Completed Ancef + sterile water 20 mL 2 gm, Route: IV, Q8H, Dosing Weight 93.182, kg, Start date: 03/21/17 16:00:00 CS T, Duration: 48 hr, Stop date: 03/23/17 8:00:00 MEDICAL SERVICES COORDINATOR, ABX Indication: Open Wound Prophylaxis Notes: (Same As: Mesha Rueda) MEDICATION WASTE Product Size: 1000 mgP roduct Wasted: ___ mg Start Date: 03/21/17 Stop Date: 03/21/17 Status: Discontinued ANES flumazenil 0.2 mg, Route: IVP, PRN, Dosing Weight 93.182, kg, PRN Benzodiazepine Reversal, Initial dose, Start date: 03/21/17 18:59:00 MEDICAL SERVICES COORDINATOR, Duration: 30 day, Stop date: 18:58:00 MEDICAL SERVICES COORDINATOR Start Date: 03/21/17 Stop Date: 03/20/17 Status: Discontinued ANES flumazenil 0.2 mg, Route: IVP, PRN, Dosing Weight 93.182, kg, PRN Benzodiazepine Reversal, Initial dose, Start date: 03/21/17 18:59:00 MEDICAL SERVICES COORDINATOR, Duration: 30 day, Stop date: 18:58:00 MEDICAL SERVICES COORDINATOR Start Date: 03/21/17 Stop Date: 03/20/17 Status: Discontinued ANES hydrALAZINE 10 mg, Route: IVP, Q20Min, Dosing Weight 93.182, kg, PRN Elevated BP, Start date : 03/21/17 18:59:00 MEDICAL SERVICES COORDINATOR, Duration: 2 doses or times, Stop date: Limited # of diony es Start Date: 03/21/17 Stop Date: 03/20/17 Status: Discontinued ANES HYDROmorphone 0.5 mg, Route: IVP, Q5Min, Dosing Weight 93.182, kg, PRN Pain Score 7-10, Start date: 03/21/17 18:59:00 MEDICAL SERVICES COORDINATOR, Duration: 4 doses or times, Stop date: Limited # of times Start Date: 03/21/17 Stop Date: 03/20/17 Status: Discontinued ANES labetalol 10 mg, Route: IVP, Q5Min, Dosing Weight 93.182, kg, PRN Elevated BP, Start date: 03/21/17 18:59:00 MEDICAL SERVICES COORDINATOR, Duration: 5 doses or times, Stop date: Limited # of times Start Date: 03/21/17 Stop Date: 03/20/17 Status: Discontinued ANES metoprolol 1 mg, Route: IVP, Q5Min, Dosing Weight 93.182, kg, PRN Other -See Comment, Start date: 03/21/17 18:59:00 MEDICAL SERVICES COORDINATOR, Duration: 5 doses or times, Stop date: Limited # of times Start Date: 03/21/17 Stop Date: 03/20/17 Status: Discontinued ANES morphine Sulfate 4 mg, Route: IVP, Q5Min, Dosing Weight 93.182, kg, PRN Pain Score 7-10, Start da te: 03/21/17 18:59:00 MEDICAL SERVICES COORDINATOR, Duration: 3 doses or times, Stop date: Limited # of t imes Start Date: 03/21/17 Stop Date: 03/20/17 Status: Discontinued ANES naloxone 0.4 mg, Route: IVP, Q2MIN, Dosing Weight 93.182, kg, PRN Narcotic Reversal, Star t date: 03/21/17 18:59:00 MEDICAL SERVICES COORDINATOR, Duration: 8 doses or times, Stop date: Limited # of times Start Date: 03/21/17 Stop Date: 03/20/17 Status: Discontinued ANES naloxone 0.4 mg, Route: IVP, Q2MIN, Dosing Weight 93.182, kg, PRN Narcotic Reversal, Star t date: 03/21/17 18:59:00 MEDICAL SERVICES COORDINATOR, Duration: 8 doses or times, Stop date: Limited # of times Start Date: 03/21/17 Stop Date: 03/20/17 Status: Discontinued ANES ondansetron 4 mg, Route: IVP, ONCE, Dosing Weight 93.182, kg, PRN Nausea & Vomiting, Start date: 03/21/17 18:59:00 MEDICAL SERVICES COORDINATOR Start Date: 03/21/17 Stop Date: 03/20/17 Status: Discontinued ANES ondansetron 4 mg, Route: IVP, ONCE, Dosing Weight 93.182, kg, PRN Nausea & Vomiting, Start date: 03/21/17 18:59:00 MEDICAL SERVICES COORDINATOR Start Date: 03/21/17 Stop Date: 03/20/17 Status: Discontinued ANES oxyCODONE 5 mg, Route: PO, Drug form: TAB, Q4H, Dosing Weight 93.182, kg, PRN Pain Score 4 -6, Start date: 03/21/17 18:59:00 MEDICAL SERVICES COORDINATOR, Duration: 30 day, Stop date: 04/20/17 18: 58:00 MEDICAL SERVICES COORDINATOR Start Date: 03/21/17 Stop Date: 03/20/17 Status: Discontinued ANES oxyCODONE 10 mg, Route: PO, Drug form: TAB, Q4H, Dosing Weight 93.182, kg, PRN Pain Score 7-10, Start date: 03/21/17 18:59:00 MEDICAL SERVICES COORDINATOR, Duration: 30 day, Stop date: 04/20/17 1 8:58:00 MEDICAL SERVICES COORDINATOR Start Date: 03/21/17 Stop Date: 03/20/17 Status: Discontinued ceFAZolin (ANES) Route: IV, Drug form: INJ, ONCE, Stop date: 03/21/17 16:23:00 MEDICAL SERVICES COORDINATOR Start Date: 03/21/17 Stop Date: 03/21/17 Status: Completed ceFAZolin (SCIP) + sterile water 20 mL 2 gm, Route: IVPB, ABXQ8H, Dosing Weight 93.182, kg, Start date: 03/22/17 0:00:0 0 MEDICAL SERVICES COORDINATOR, Duration: 3 doses or times, Stop date: 03/22/17 16:00:00 MEDICAL SERVICES COORDINATOR, ABX Indicat ion: Surgical Prophylaxis Notes: (Same As: Mesha Rueda) MEDICATION WASTE Product Size: 1000 mgP roduct Wasted: 0 mg Start Date: 03/22/17 Stop Date: 03/22/17 Status: Discontinued D5W 1/2NS 1,000 mL 1,000 mL, Rate: 100 ml/hr, Infuse over: 10 hr, Route: IV, Dosing Weight 93.182 k g, Total Volume: 1,000, Priority: STAT, Start date: 03/21/17 20:32:00 MEDICAL SERVICES COORDINATOR, Durat ion: 30 day, Stop date: 04/20/17 20:31:00 MEDICAL SERVICES COORDINATOR, 2.15, m2 Start Date: 03/21/17 Stop Date: 03/22/17 Status: Discontinued Dakins Half Strength Solution 0.25% topical 1 appl, Route: TOP, Drug Form: SOLN, Dosing Weight 95.455, kg, Daily, Start date : 03/23/17 9:00:00 MEDICAL SERVICES COORDINATOR, Duration: 30 day, Stop date: 04/21/17 9:00:00 MEDICAL SERVICES COORDINATOR Start Date: 03/23/17 Stop Date: 03/22/17 Status: Deleted Dakins Quarter Strength Solution 1 appl, Route: TOP, Drug Form: SOLN, Dosing Weight 95.455, kg, Daily, Start date : 03/22/17 11:00:00 MEDICAL SERVICES COORDINATOR, Duration: 30 day, Stop date: 04/20/17 21:00:00 MEDICAL SERVICES COORDINATOR Notes: (Dakin's (0.125%=1/4 strength) 473ml top SOLN) For external use only. No te: quarter strength=0.125% sodium hypochlorite. Start Date: 03/22/17 Stop Date: 03/23/17 Status: Discontinued dexamethasone (ANES) Route: IV, Drug form: INJ, ONCE, Stop date: 03/21/17 16:53:00 MEDICAL SERVICES COORDINATOR Start Date: 03/21/17 Stop Date: 03/21/17 Status: Completed dexmedetomidine (ANES) + Sodium Chloride 0.9% IV (ANES) 98 mL Route: IV, Drug form: INJ, ONCE, Stop date: 03/21/17 16:43:00 MEDICAL SERVICES COORDINATOR Start Date: 03/21/17 Stop Date: 03/21/17 Status: Completed docusate 100 mg, 1 cap, Route: PO, Drug form: CAP, BID, Dosing Weight 93.182, kg, Start d ate: 03/22/17 9:00:00 MEDICAL SERVICES COORDINATOR, Duration: 30 day, Stop date: 04/20/17 17:00:00 MEDICAL SERVICES COORDINATOR Notes: (Same as: Colace) (Do Not Crush) Start Date: 03/22/17 Stop Date: 03/23/17 Status: Discontinued enoxaparin 40 mg, 0.4 mL, Route: SUB-Q, Drug form: INJ, [id number], Dosing Weight 93.182, kg, Start date: 03/21/17 21:00:00 MEDICAL SERVICES COORDINATOR, Stop date: 04/19/17 21:00:00 MEDICAL SERVICES COORDINATOR Notes: (Same as: Lovenox) Start Date: 03/21/17 Stop Date: 03/22/17 Status: Discontinued enoxaparin 30 mg, 0.3 mL, Route: SUB-Q, Drug form: INJ, Q12H, Dosing Weight 93.182, kg, Sta rt date: 03/22/17 13:00:00 MEDICAL SERVICES COORDINATOR, Stop date: 04/20/17 0:00:00 MEDICAL SERVICES COORDINATOR Notes: (Same as: Lovenox) Start Date: 03/22/17 Stop Date: 03/23/17 Status: Discontinued enoxaparin 30 mg/0.3 mL subcutaneous solution 30 mg, SUB-Q, BID, X 19 day, # 38 inj, 0 Refill(s), Pharmacy: [facility] [id number], patient needs 19 day supply Start Date: 03/23/17 Stop Date: 04/11/17 Status: Ordered ergocalciferol 50,000 intl units oral capsule 50,000 IntlUnit, 1 cap, Route: PO, Drug form: CAP, QFri, Dosing Weight 95.455, k g, Start date: 03/22/17 9:00:00 MEDICAL SERVICES COORDINATOR, Duration: 30 day, Stop date: 04/19/17 9:00: 00 MEDICAL SERVICES COORDINATOR Notes: (Same as: Vitamin D) "Do Not [...] form: INJ, ONCE, Stop date: 03/21/17 16:43:00 MEDICAL SERVICES COORDINATOR Start Date: 03/21/17 Stop Date: 03/21/17 Status: Completed gabapentin 300 mg, Route: PO, Q8Hnow, Dosing Weight 93.182, kg, Start date: 03/21/17 21:00: 00 MEDICAL SERVICES COORDINATOR, Duration: 30 day, Stop date: 04/20/17 13:00:00 MEDICAL SERVICES COORDINATOR Start Date: 03/21/17 Stop Date: 03/21/17 Status: Canceled gabapentin 300 mg oral capsule 300 mg, 1 cap, Route: PO, Drug form: CAP, BID, Dosing Weight 93.182, kg, Start d ate: 03/22/17 9:00:00 MEDICAL SERVICES COORDINATOR, Duration: 30 day, Stop date: 04/20/17 17:00:00 MEDICAL SERVICES COORDINATOR Notes: (Same as: Neurontin) Start Date: 03/22/17 Stop Date: 03/23/17 Status: Discontinued gabapentin 300 mg oral capsule 300 mg=1 cap, PO, BID, # 90 cap, 1 Refill(s) Start Date: 03/20/17 Status: Ordered glycopyrrolate (ANES) Route: IV, Drug form: INJ, ONCE, Stop date: 03/21/17 18:54:00 MEDICAL SERVICES COORDINATOR Start Date: 03/21/17 Stop Date: 03/21/17 Status: Completed hydromorphone (ANES) Route: IV, Drug form: INJ, ONCE, Stop date: 03/21/17 18:49:00 MEDICAL SERVICES COORDINATOR Start Date: 03/21/17 Stop Date: 03/21/17 Status: Completed ketAMINE (ANES) Route: IV, Drug form: INJ, ONCE, Stop date: 03/21/17 16:43:00 MEDICAL SERVICES COORDINATOR Start Date: 03/21/17 Stop Date: 03/21/17 Status: Completed Lactated Ringers Injection IV (ANES) 1000 mL Route: IV, Total Volume: 1,000, Start date: 03/21/17 15:24:00 MEDICAL SERVICES COORDINATOR, Stop date: 16:24:00 MEDICAL SERVICES COORDINATOR Start Date: 03/21/17 Stop Date: 03/21/17 Status: Completed lidocaine (ANES) Route: IV, Drug form: INJ, ONCE, Stop date: 03/21/17 16:43:00 MEDICAL SERVICES COORDINATOR Start Date: 03/21/17 Stop Date: 03/21/17 Status: Completed losartan 50 mg, Route: PO, Drug form: TAB, Daily, Dosing Weight 95.455, kg, Start date: 0 03/23/17 9:00:00 MEDICAL SERVICES COORDINATOR, Duration: 30 day, Stop date: 04/21/17 9:00:00 MEDICAL SERVICES COORDINATOR Start Date: 03/23/17 Stop Date: 03/22/17 Status: Canceled losartan 50 mg, 1 tab, Route: PO, Drug form: TAB, Daily, Dosing Weight 95.455, kg, Priori ty: NOW, Start date: 03/22/17 9:57:00 MEDICAL SERVICES COORDINATOR, Duration: 30 day, Stop date: 04/21/17 9:00:00 MEDICAL SERVICES COORDINATOR Notes: (Same as: Mehran) Start Date: 03/22/17 [...] PRN I nsomnia, Start date: 03/21/17 20:34:00 MEDICAL SERVICES COORDINATOR, Duration: 30 day, Stop date: 8 20:33:00 MEDICAL SERVICES COORDINATOR Notes: (Same as: Melatonin) Start Date: 03/21/17 Stop Date: 03/23/17 Status: Discontinued meloxicam 7.5 mg oral tablet TK 1 T PO QHS Start Date: 03/21/17 Status: Ordered methocarbamol 1,000 mg, 2 tab, Route: PO, Drug form: TAB, Q8H, Dosing Weight 93.182, kg, PRN M uscle Spasms, Start date: 03/21/17 20:34:00 MEDICAL SERVICES COORDINATOR, Duration: 30 day, Stop date: 20:33:00 MEDICAL SERVICES COORDINATOR Notes: (Same as:Robaxin) Start Date: 03/21/17 Stop Date: 03/23/17 Status: Discontinued metoprolol tartrate 50 mg, 1 tab, Route: PO, Drug form: TAB, Q12H, Dosing Weight 93.182, kg, Start d ate: 03/21/17 21:00:00 MEDICAL SERVICES COORDINATOR, Duration: 30 day, Stop date: 04/20/17 9:00:00 MEDICAL SERVICES COORDINATOR Notes: (Same as: Lopressor) Start Date: 03/21/17 Stop Date: 03/23/17 Status: Discontinued Metoprolol Tartrate 50 mg oral tablet 50 mg=1 tab, PO, BID, # 60 tab, 0 Refill(s) Start Date: 03/20/17 Status: Ordered midazolam (ANES) Route: IV, Drug form: SOLN, ONCE, Stop date: 03/21/17 16:38:00 MEDICAL SERVICES COORDINATOR Start Date: 03/21/17 Stop Date: 03/21/17 Status: Completed morphine Sulfate 4 mg, Route: IVP, ONCE, Dosing Weight 93.182, kg, Priority: STAT, Start date: 10:39:00 MEDICAL SERVICES COORDINATOR, Stop date: 03/21/17 10:39:00 MEDICAL SERVICES COORDINATOR Start Date: 03/21/17 Stop Date: 03/21/17 Status: Completed neostigmine (ANES) Route: IV, Drug form: INJ, ONCE, Stop date: 03/21/17 18:54:00 MEDICAL SERVICES COORDINATOR Start Date: 03/21/17 Stop Date: 03/21/17 Status: Completed Chilmark 5/325 oral tablet 1 tab, Route: PO, Drug Form: TAB, Dosing Weight 95.455, kg, Q6H, PRN Pain Score 6-10, Start date: 03/22/17 7:18:00 MEDICAL SERVICES COORDINATOR, Duration: 30 day, Stop date: 04/21/17 7: 17:00 MEDICAL SERVICES COORDINATOR Notes: (Same as: Chilmark 325/5) Do not exceed 4gm/day of acetaminophen. Start Date: 03/22/17 Stop Date: 03/23/17 Status: Discontinued ondansetron 4 mg, Route: IVP, Drug form: INJ, ONCE, Dosing Weight 93.182, kg, Priority: STAT , Start date: 03/21/17 10:39:00 MEDICAL SERVICES COORDINATOR, Stop date: 03/21/17 10:39:00 MEDICAL SERVICES COORDINATOR Start Date: 03/21/17 Stop Date: 03/21/17 Status: Completed ondansetron 4 mg, 2 mL, Route: IVP, Drug form: INJ, Q8H, Dosing Weight 93.182, kg, PRN Nause a & Vomiting, Start date: 03/21/17 20:34:00 MEDICAL SERVICES COORDINATOR, Duration: 30 day, Stop date: 04/20/17 20:33:00 MEDICAL SERVICES COORDINATOR Notes: (Same as: Jayne) MEDICATION WASTE Product Size: 4 mgProduct Was junior: 0 mg Start Date: 03/21/17 Stop Date: 03/23/17 Status: Discontinued ondansetron (ANES) Route: IV, Drug form: INJ, ONCE, Stop date: 03/21/17 18:54:00 MEDICAL SERVICES COORDINATOR Start Date: 03/21/17 Stop Date: 03/21/17 Status: Completed oxyCODONE 5 mg immediate release 5 mg, Route: PO, Drug form: TAB, Q4H, Dosing Weight 93.182, kg, PRN Pain Score 4 -6, Start date: 03/21/17 20:34:00 MEDICAL SERVICES COORDINATOR, Duration: 30 day, Stop date: 04/20/17 20: 33:00 MEDICAL SERVICES COORDINATOR Start Date: 03/21/17 Stop Date: 03/20/17 Status: Discontinued oxyCODONE 5 mg immediate release 10 mg, Route: PO, Drug form: TAB, Q4H, Dosing Weight 93.182, kg, PRN Pain Score 7-10, Start date: 03/21/17 20:34:00 MEDICAL SERVICES COORDINATOR, Duration: 30 day, Stop date: 04/20/17 2 0:33:00 MEDICAL SERVICES COORDINATOR Start Date: 03/21/17 Stop Date: 03/20/17 Status: Discontinued phenylephrine (ANES) Route: IV, Drug form: INJ, ONCE, Stop date: 03/21/17 16:28:00 MEDICAL SERVICES COORDINATOR Start Date: 03/21/17 Stop Date: 03/21/17 Status: Completed polyethylene glycol 3350 17 gm, 1 pkt, Route: PO, Drug form: PWDR, Daily, Dosing Weight 93.182, kg, PRN C onstipation, Start date: 03/21/17 20:34:00 MEDICAL SERVICES COORDINATOR, Duration: 30 day, Stop date: 12/26 20:33:00 MEDICAL SERVICES COORDINATOR Notes: Dissolve in 8 oz of water or juice.(Same as: Miralax) Start Date: 03/21/17 Stop Date: 03/23/17 Status: Discontinued propofol (ANES) Route: IV, Drug form: INJ, ONCE, Stop date: 03/21/17 16:43:00 MEDICAL SERVICES COORDINATOR Start Date: 03/21/17 Stop Date: 03/21/17 Status: Completed rocuronium (ANES) Route: IV, Drug form: INJ, ONCE, Stop date: 03/21/17 16:43:00 MEDICAL SERVICES COORDINATOR Start Date: 03/21/17 Stop Date: 03/21/17 Status: Completed senna 17.2 mg, 2 tab, Route: PO, Drug Form: TAB, Dosing Weight 93.182, kg, Bedtime, St art date: 03/21/17 21:00:00 MEDICAL SERVICES COORDINATOR, Duration: 30 day, Stop date: 04/19/17 21:00:00 MEDICAL SERVICES COORDINATOR Notes: (Same as: Leeann) Start Date: 03/21/17 Stop Date: 03/23/17 Status: Discontinued senna 8.6 mg oral tablet 17.2 mg=2 tab, PO, Bedtime, X 7 day, # 14 tab, 0 Refill(s), Pharmacy: [facility] [id number] Start Date: 03/23/17 Stop Date: 03/30/17 Status: Ordered Sodium Chloride 0.9% (Bolus) IV 1,000 mL, Infuse Over: 1 hr, Route: IV, ONCE, Priority: STAT, Dosing Weight 93.1 82 kg, Start date: 03/21/17 9:17:00 MEDICAL SERVICES COORDINATOR, Stop date: 03/21/17 9:17:00 MEDICAL SERVICES COORDINATOR Start Date: 03/21/17 Stop Date: 03/21/17 Status: Completed Sodium Chloride 0.9% IV 1,000 mL 1,000 mL, Rate: 100 ml/hr, Infuse over: 10 hr, Route: IV, Dosing Weight 95.455 k g, Total Volume: 1,000, Start date: 03/22/17 9:52:00 MEDICAL SERVICES COORDINATOR, Duration: 1 doses or t imes, Stop date: 03/22/17 19:51:00 MEDICAL SERVICES COORDINATOR, 2.18, m2 Start Date: 03/22/17 Stop Date: 03/22/17 Status: Completed tramadol 50 mg oral tablet 50 mg=1 tab, PO, Q6H, PRN Pain Score 6-10, X 5 day, # 20 tab, 0 Refill(s) Start Date: 03/23/17 Stop Date: 03/28/17 Status: Ordered Results BLOOD BANK RESULTS 1 2 3 [...] *HI* (03/21/17 9:18 AM) RDW [11.5-14.5 %] 305 K/CMM (03/23/17 6:32 AM) 346 K/CMM (03/22/17 6:11 AM) 469 K/CMM *HI* (03/21/17 9:18 AM) Platelet [133-450 K/CMM] 7.2 fL *LOW* (03/23/17 6:32 AM) 7.2 fL *LOW* (03/22/17 6:11 AM) 7.0 fL *LOW* (03/21/17 9:18 AM) MPV [7.4-10.4 fL] 79.3 % *HI* (03/23/17 6:32 AM) 85.9 [...] taken to an OSH but transferred to [facility] for HLOC. He was diagnosed w/ the above fracture and underwent L femur I&D and IMN on 03/21/17 w/ Dr. Bergman/ABDELRAHMAN. He states that he is feeling relatively [...] 365 Days? No. Cessation Counseling Provided? No. VitalsTmp(F)[id number] 03/22 04:[id number]--- 03/22 00:[id number] 2.0L/m 03/21 21:[id number] 2.0L/m 03/21 20:00----[id number]--- 03/21 19:45----[id number]--- 24 Hr Tmax: 99F (37.22c) at 03/21 14:45Vital Signs are the last 5 in the past 48 hours. DateWt(kg)Wt(lb)Ht(cm)Ht(in)Method 03/22 95.45 [phone] 69.00Estimated 03/21 (initial) 93.18 205.00Measured 75.26 69.00Stated [...] Labs 03/22 0611 Magnesium Lvl2.0 Phosphorus3.5 Glucose Jqc869 H BUN22 Creatinine Lvl1.61 H Sodium Kzn200 Potassium Lvl4.3 Chloride Cbj198 CO223 L AGAP12.3 Calcium Lvl7.3 L eGFR56 WBC10.9 H RBC2.95 L Hgb8.9 L Hct26.4 L MCV89.6 MCH30.1 MCHC33.6 RDW16.8 H Lrakyrba211 MPV7.2 L Segs85.9 H Monocytes5.7 Lymphocytes8.3 L Basophils0.1 Segs-Bands #9.4 H Lymphocytes #0.9 L Monocytes #0.6 03/21 1442 Lactic Acid Lvl1.1 03/21 1426 ABO/RhB NEG Antibody ScrnNegative 03/21 0918 Glucose Bua113 H BUN23 H Creatinine Lvl1.67 H Sodium Egg490 Potassium Lvl4.0 Chloride Cbf647 CO222 L AGAP17.0 Calcium Lvl8.6 eGFR53 Lactic Acid WB3.6 H Total CK226 H WBC14.2 H RBC3.73 L Hgb10.8 L Hct33.6 L MCV90.1 MCH28.9 MCHC32.1 RDW16.5 H Symaxxtk967 H MPV7.0 L Segs83.4 H Monocytes5.5 Jpebohroaij36.8 L Eosinophils0.1 Basophils0.2 Segs-Bands #11.8 H Lymphocytes #1.5 Monocytes #0.8 IMAGING: Radiology Report EXAM: XR LEFT HIP 2 VIEWS AND AP PELVIS EXAM: XR LEFT FEMUR 2 VIEWS EXAM: XR LEFT KNEE 3 VIEWS EXAM: XR LEFT TIBIA-FIBULA 2 VIEWS DATE: 03/21/2017 9:15 AM MEDICAL SERVICES COORDINATOR IMPRESSION: 1. Acute, spiral fracture through the mid left femoral diaphysis demonstrating mild posterior medial displacement of the distal fragment and overlying soft tissue swelling. 2. Chronic osseous changes and bilateral hip joints, ischio pubic rami, knee and ankle joints, as described. Radiology Report EXAM: XR LEFT FEMUR 2 VIEWS DATE: 03/21/2017 3:36 PM MEDICAL SERVICES COORDINATOR FINDINGS: Interval intramedullary nail fixates a previously [...] primary. Follow up in [facility] ([phone]) as outpatient 3-4 weeks after discharge. Please call [phone] with any questions or concerns. Reva Clark PA-C Fragility Fracture Abstract Manager Extracted from: Title: History and Physical Author: [...]
--- OUTSIDE RECORDS SUMMARY | 2018-07-24 06:50 | XMS REPORT ---
Author Author [facility] Address Unknown Phone Unavailable Care Team Providers Care Co[employer] O[employer] Patcher Name Role Phone JUANPABLO NEDA CRISTHIAN Unavailable Unavailable MACKENZIE JAY Unavailable Unavailable VINCENT OLIVAREZ Unavailable Unavailable Guanaco MUHAMMAD Unavailable Unavailable CORDELIA HELLER Unavailable Unavailable KALEB DIXON Unavailable Unavailable Problems This patient has no known problems. Allergies, Adverse Reactions, Alerts This patient has no known allergies or adverse reactions. Medications This patient has no known medications. Results Test Description Test Time Test Comments Text Results Atomic Results Result Comments URINALYSIS W/ REFLEX URINE CULTURE 2018-06-28 20:53:00 COLOR (BEAKER) (test wlmj=479) Yellow CLARITY (BEAKER) (test klhs=345) Hazy SPECIFIC GRAVITY UA (BEAKER) (test bgxe=772) 1.014 1.001-1.035 PH UA (BEAKER) (test wyzo=741) 8.5 5.0-8.0 PROTEIN UA (BEAKER) (test cbqu=219) 300 mg/dL Negative GLUCOSE UA (BEAKER) (test fbez=419) Negative Negative KETONES UA (BEAKER) (test qicq=710) Negative Negative BILIRUBIN UA (BEAKER) (test hjwx=214) Negative Negative BLOOD UA (BEAKER) (test ytqx=505) Negative Negative NITRITE UA (BEAKER) (test jjzv=785) Negative Negative LEUKOCYTE ESTERASE UA (BEAKER) (test hzxj=904) Large Negative UROBILINOGEN UA (BEAKER) (test mcsk=648) 0.2 mg/dL 0.2-1.0 RBC UA (BEAKER) (test wqdy=321) 0 /HPF WBC UA (BEAKER) (test ofpl=739) 19 /HPF BACTERIA (BEAKER) (test jobb=758) Many MUCUS (BEAKER) (test lctp=2091) Rare SQUAMOUS EPITHELIAL (BEAKER) (test xesl=417) < /HPF CRYSTALS, URINE (BEAKER) (test muhc=0735) Occasional YEAST (BEAKER) (test msfb=2386) Few SOURCE(BEAKER) (test agza=2088) CT, [id number] 20:07:00Reason for exam:->ABDOMINAL PAINReason for exam:-> WOUND CHECKReason for exam:->wound is left posterior pelvis and hip - please include cuts through the proximal femur and hipWhat is the patient's sedation requirement?->No SedationFINAL REPORT EXAM: CT of the abdomen and [...] dependent atelectasis, right greater than left. LIVER: Hepatomegaly.BILE DUCTS: Within normal limits.GALL BLADDER: Status post cholecystectomy.PANCREAS: Within normal limits.SPLEEN: Within normal limits.ADRENALS: Within normal limits.KIDNEYS/URETERS: Within normal limits. URINARY BLADDER: Collapsed around the suprapubic catheter.REPRODUCTIVE ORGANS: W ithin normal limits. BOWEL/MESENTERY: Left lower quadrant colostomy. No bowel ob struction or abnormal wall thickening. Normal appendix.PERITONEUM/RETROPERITONEU M: Again seen is fatty stranding/edema versus scarring in the paravertebral soft tissues and presacral soft tissues. No free air, free fluid or fluid collection. VESSELS: Right common iliac and external iliac artery stent. Mild calcific ath erosclerosis. LYMPH NODES: Prominent left external iliac and left inguinal lymp h nodes, likely reactive. BONES AND SOFT TISSUES: Again seen is diffuse osteolys is and fragmentation of the bilateral proximal femurs and hip joints, left great er than right with extensive soft tissue within the bilateral hip joint spaces. Chronic dislocation of bilateral hips. Again seen is a large wound/ulcer with de bris and air-fluid level extending from the left hip joint to the posterior hip soft tissues. Diffuse skin thickening of the bilateral gluteal regions extending to the perineum to prior exam. Diffuse atrophy in the paraspinal, pelvic and th igh musculature. Status post ORIF of the left proximal femur. Generalized osteo penia. Thoracolumbar spinal fusion hardware again noted. 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 Multilevel degenerative changes of the visualized spine. Peripheral calcification of the thoracolumbar thecal sac, unchanged. IMPRESSION: Chronic deformity of the bilateral hips, similar to prio r exam. Status post ORIF of the left proximal femur.Large wound/ulcer with debri s and air-fluid level extending from the left hip joint to the posterior hip sof t tissues, suspicious for septic arthritis. Signed: Williams Cunningham Verif ied Date/Time: 06/28/2018 20:07:50 Reading Location: [address] Body Readi ng Room 08:0 7 PM RAD, CHEST, 1 VIEW, NON [id number] 19:21:00Reason for exam:->ABDOMINAL PAINReason for exam:->WOUND CHECKReason for exam:->coughShould this be performed at the bedside?->YesFINAL REPORT Chest one view. Clinical history: Abdominal [...] of bowel in the left upper quadrant. Impression:Elevated right hemidiaphragm.No focal pulmonary consolidation. Signed: Williams Cunningham Verified Date/Time: 06/28/2018 19:21:05 Reading Location: [address] Body Reading Room [id number] 19:16:00* Test Item Value Reference Range Comments PHOSPHORUS (BEAKER) (test bzky=022) 2.3 mg/dL 2.3-4.7 [id number] 19:16:00* Test Item Value Reference Range Comments MAGNESIUM (BEAKER) (test wjyr=297) 2.1 mg/dL 1.6-2.6 BASIC METABOLIC [id number] 19:16:00* Test Item Value Reference Range Comments SODIUM (BEAKER) (test osde=624) 137 meq/L 136-145 POTASSIUM (BEAKER) (test fcbj=193) 4.1 meq/L 3.5-5.1 CHLORIDE (BEAKER) (test bait=675) 107 meq/L 98-107 CO2 (BEAKER) (test etbd=040) 21 meq/L 22-29 BLOOD UREA NITROGEN (BEAKER) (test kdxn=438) 22 mg/dL 7-21 CREATININE (BEAKER) (test mvih=037) 1.84 mg/dL 0.57-1.25 GLUCOSE RANDOM (BEAKER) (test iuib=616) 92 mg/dL 70-105 CALCIUM (BEAKER) (test ejwr=622) 9.2 mg/dL 8.4-10.2 EGFR (BEAKER) (test bywk=4722) 47 mL/min/1.73 sq m ESTIMATED GFR IS NOT ACCURATE CREATININE CLEARANCE IN PREDICTING GLOMERULAR FILTRATION RATE. ESTIMATED GFR IS NOT APPLICABLE FOR DIALYSIS PATIENTS. HEPATIC FUNCTION [id number] 19:16:00* Test Item Value Reference Range Comments TOTAL PROTEIN (BEAKER) (test nfjx=722) 9.0 gm/dL 6.0-8.3 ALBUMIN (BEAKER) (test ukuo=4474) 3.1 g/dL 3.5-5.0 BILIRUBIN TOTAL (BEAKER) (test kgqz=293) 0.2 mg/dL 0.2-1.2 BILIRUBIN DIRECT (BEAKER) (test ktsy=752) 0.2 mg/dL 0.1-0.5 ALKALINE PHOSPHATASE (BEAKER) (test ndbr=532) 209 U/L 40-150 AST (SGOT) (BEAKER) (test divf=975) 15 U/L 5-34 ALT (SGPT) (BEAKER) (test hyxd=686) 14 U/L 6-55 POCT-LACTIC ACID, [id number] 19:05:00* Test Item Value Reference Range Comments POC-LACTIC ACID, VENOUS (BEAKER) (test fqcr=3974) 1.3 mmol/L 0.9-1.[address] [facility] [address] [facility] [address] CBC W/PLT COUNT & AUTO [id number] 19:01:00* Test Item Value Reference Range Comments WHITE BLOOD CELL COUNT (BEAKER) (test ranz=047) 10.5 K/ L 3.5-10.5 RED BLOOD CELL COUNT (BEAKER) (test exsi=236) 3.90 M/ L 4.63-6.08 HEMOGLOBIN (BEAKER) (test wpql=438) 10.9 GM/DL 13.7-17.5 HEMATOCRIT (BEAKER) (test nrhh=420) 35.6 % 40.1-51.0 MEAN CORPUSCULAR VOLUME (BEAKER) (test gebv=690) 91.3 fL 79.0-92.2 MEAN CORPUSCULAR HEMOGLOBIN (BEAKER) (test kdev=215) 27.9 pg 25.7-32.2 MEAN CORPUSCULAR HEMOGLOBIN CONC (BEAKER) (test ebul=754) 30.6 GM/DL 32.3-36.5 RED CELL DISTRIBUTION WIDTH (BEAKER) (test auen=008) 17.5 % 11.6-14.4 PLATELET COUNT (BEAKER) (test imln=149) 428 K/CU MM 150-450 MEAN PLATELET VOLUME (BEAKER) (test bnqm=166) 8.5 fL 9.4-12.4 NUCLEATED RED BLOOD CELLS (BEAKER) (test dyhv=017) 0 /100 WBC 0-0 NEUTROPHILS RELATIVE PERCENT (BEAKER) (test puxi=716) 77 % LYMPHOCYTES RELATIVE PERCENT (BEAKER) (test pzby=976) 14 % MONOCYTES RELATIVE PERCENT (BEAKER) (test kbvc=886) 8 % EOSINOPHILS RELATIVE PERCENT (BEAKER) (test cowe=045) 1 % BASOPHILS RELATIVE PERCENT (BEAKER) (test cgme=539) 0 % NEUTROPHILS ABSOLUTE COUNT (BEAKER) (test cyak=853) 8.04 K/ L 1.78-5.38 LYMPHOCYTES ABSOLUTE COUNT (BEAKER) (test nbvq=315) 1.42 K/ L 1.32-3.57 MONOCYTES ABSOLUTE COUNT (BEAKER) (test wgze=803) 0.85 K/ L 0.30-0.82 EOSINOPHILS ABSOLUTE COUNT (BEAKER) (test oszz=270) 0.08 K/ L 0.04-0.54 BASOPHILS ABSOLUTE COUNT (BEAKER) (test ietv=215) 0.02 K/ L 0.01-0.08 IMMATURE GRANULOCYTES-RELATIVE PERCENT (BEAKER) (test ixmh=0618) 0 % 0-1 BLOOD GAS, [id number] 18:59:00* Test Item Value Reference Range Comments PH VENOUS (BEAKER) (test xfuh=279) 7.34 7.32-7.42 PCO2 VENOUS (BEAKER) (test tafu=846) 43 mmHg 41-51 PO2 VENOUS (BEAKER) (test ifkm=553) 34 mmHg 25-40 O2 SATURATION VENOUS (BEAKER) (test este=255) 61.5 % 40.0-70.0 HCO3 VENOUS (BEAKER) (test kdwz=367) 23 mmol/L 21-29 BASE EXCESS VENOUS (BEAKER) (test ohhk=093) -2.7 mmol/L -2.0-3.0 PATIENT TEMPERATURE (BEAKER) (test dmxl=3708) 37.0 C FIO2 (BEAKER) (test ulgg=8293) 21.0 % BLOOD [id number] 17:01:00* Test Item Value Reference Range Comments CULTURE (BEAKER) (test cvtf=7768) No growth in 5 days BLOOD [id number] 17:01:00* Test Item Value Reference Range Comments CULTURE (BEAKER) (test zans=6069) No growth in [address], [id number] 18:31:00Reason for exam:->abdominal painWhat is the patient's sedation requirement?->No SedationFINAL REPORT TECHNIQUE: CT of the abdomen and pelvis WITHOUT intravenous contrast and WITHOUT oral contrast. Dose modulation, iterative reconstruction, and/or weight-based adjustment of the mA/kV was utilized to reduce the radiation dose to as low as reasonably achievable. INDICATION: 52-year-old man with left lower quadrant pain. COMPARISON: Abdomen and pelvis CT 11/28/2016. FINDINGS: ABSENCE OF INTRAVENOUS CONTRAST DECREASES SENSITIVITY FOR DETECTION OF FOCAL LESIONS AND VASCULAR PATHOLOGY. LOWER THORAX: Mild linear atelectasis and/or scarring in both lung bases. Mild dependent atelectasis versus pleural thickening bilaterally. HEPATOBILIARY: No focal hepatic lesions. Prior cholecystectomy. No biliary ductal dilatation.SPLEEN: No splenomegaly.PANCREAS: No focal masses or ductal dilatation. ADRENALS: No adrenal nodules.KIDNEYS/URETERS: No hydro nephrosis, stones, or solid mass lesions.PELVIC ORGANS/BLADDER: Suprapubic glenroy ter terminates in the urinary bladder. Prostate and seminal vesicles are grossly unremarkable. PERITONEUM/RETROPERITONEUM: No free air or fluid.LYMPH NODES: Pro minent left inguinal and external iliac lymph nodes measure up to 1.9 cm, likely reactive.VESSELS: Unchanged right iliac artery stent. GI TRACT: Prior sigmoid r esection with end colostomy in the left lower quadrant. No distention or wall th ickening. Normal appendix. BONES AND SOFT TISSUES: Degenerative changes of the v isualized spine with unchanged posterior fusion hardware in the visualized thora columbar spine. Unchanged deformity of the sacrum. Unchanged chronic-appearing d islocation and deformities of both proximal femurs. Interval placement of an int ramedullary hitesh-interlocking screw construct in the left femoral diaphysis. Pers istent soft tissue tissue density in the region of the left hip joint with incre ased air and debris within this region; there appears to be an air and debris-co ntaining sinus tract which drains to the posterior skin surface of the proximal left lower extremity. Soft tissue loss in the gluteal and perineal regions. IMP RESSION:No acute abnormalities in the abdomen or pelvis. Prominent left inguinal and external iliac lymph nodes, likely reactive. Unchanged chronic deformities of both hips with increased air and debris in the region of the left hip, suspic ious for septic arthritis. Signed: Bobbi Mensah MDReport Verified Date/Time: 01/31/2018 18:31:39 Reading Location: [facility] C013Y CT Body Reading Room Elec tronically signed by: BOBBI MENSAH MD on 01/31/2018 06:31 PM U/S, TESTICULAR (SCROTUM)2018-01-31 17:09:00Reason for exam:->testicular painFINAL REPORT TECHNIQUE: Grayscale, color Doppler, and spectral Doppler ultrasound of the scrotum and testicles. INDICATION: Testicular pain. COMPARISON: None. FINDINGS: RIGHT TESTIS: Measures 3 x 2 x 2.2 cm. Normal e chotexture without focal lesions. There is a more rounded area of isoechogenicit y in the right upper testicle with increased vascular flow. LEFT TESTIS: Measure s 2.3 x 2 x 2.4 cm. Normal echotexture without focal lesions. VASCULAR: There ar e symmetric, arterial waveforms detected in both testes. No varicocele. EPIDIDYM IDES: The left epididymis is thickened with increased flow. SCROTUM: Trace right hydrocele. There is a complex left hydrocele with internal septations. An anech oic lesion in the left epididymal tail measures 0.9 x 0.7 x 0.7 cm is most consi stent with an epididymal cyst. IMPRESSION: 1.The findings are consistent with l eft epididymitis. 2.There is a questionable rounded area of isoechogenicity in t he right upper testicle with increased vascular flow. This may be more focal orc hitis. However, a follow-up ultrasound is recommended in six weeks since a mass is also differential. 3.There is a complex left hydrocele. The findings were dis cussed with Dr. Jay on 01/31/2018 at 5:19 PM. Signed: Xavi Bermudez MDReport V erified Date/Time: 01/31/2018 17:09:48 Reading Location: [address] Reading Room U/S, DUPLEX, [id number] 17:09:00Reason for exam:->GROIN SWELLING FINAL REPORT TECHNIQUE: Grayscale, color Doppler, and spe ctral Doppler ultrasound of the scrotum and testicles. INDICATION: Testicular pa in. COMPARISON: None. FINDINGS: RIGHT TESTIS: Measures 3 x 2 x 2.2 cm. Normal e chotexture without focal lesions. There is a more rounded area of isoechogenicit y in the right upper testicle with increased vascular flow. LEFT TESTIS: Measure s 2.3 x 2 x 2.4 cm. Normal echotexture without focal lesions. VASCULAR: There ar e symmetric, arterial waveforms detected in both testes. No varicocele. EPIDIDYM IDES: The left epididymis is thickened with increased flow. SCROTUM: Trace right hydrocele. There is a complex left hydrocele with internal septations. An anech oic lesion in the left epididymal tail measures 0.9 x 0.7 x 0.7 cm is most consi stent with an epididymal cyst. IMPRESSION: 1.The findings are consistent with l eft epididymitis. 2.There is a questionable rounded area of isoechogenicity in t he right upper testicle with increased vascular flow. This may be more focal orc hitis. However, a follow-up ultrasound is recommended in six weeks since a mass is also differential. 3.There is a complex left hydrocele. The findings were dis cussed with Dr. Jay on 01/31/2018 at 5:19 PM. Signed: Xavi Bermudez MDReport V erified Date/Time: 01/31/2018 17:09:48 Reading Location: [facility] [id number] [facility] Reading Room ALYSIS W/ [id number] 15:34:00* Test Item Value Reference Range Comments COLOR (BEAKER) (test zoqq=195) Yellow CLARITY (BEAKER) (test dpyf=193) Hazy SPECIFIC GRAVITY UA (BEAKER) (test pjhw=222) 1.013 1.001-1.035 PH UA (BEAKER) (test bnko=342) 7.0 5.0-8.0 PROTEIN UA (BEAKER) (test sbhk=783) 200 mg/dL Negative GLUCOSE UA (BEAKER) (test duys=772) 30 mg/dL Negative KETONES UA (BEAKER) (test ymct=822) Negative Negative BILIRUBIN UA (BEAKER) (test bdlz=048) Negative Negative BLOOD UA (BEAKER) (test ovrx=871) Small Negative NITRITE UA (BEAKER) (test bnne=439) Negative Negative LEUKOCYTE ESTERASE UA (BEAKER) (test pjyu=083) Large Negative UROBILINOGEN UA (BEAKER) (test wrzy=793) 0.2 mg/dL 0.2-1.0 RBC UA (BEAKER) (test hgyy=754) 2 /HPF WBC UA (BEAKER) (test etzi=117) 128 /HPF BACTERIA (BEAKER) (test tbal=808) Moderate MUCUS (BEAKER) (test whov=0403) Rare SQUAMOUS EPITHELIAL (BEAKER) (test dqeh=090) 3 /HPF HYALINE CASTS (BEAKER) (test zzrw=479) 3 /LPF SOURCE(BEAKER) (test fztw=3744) Urine, Suprapubic Aspirate BASIC METABOLIC [id number] 15:24:00* Test Item Value Reference Range Comments SODIUM (BEAKER) (test uwqx=386) 135 meq/L 136-145 POTASSIUM (BEAKER) (test malq=971) 3.5 meq/L 3.5-5.1 CHLORIDE (BEAKER) (test vdmr=046) 107 meq/L 98-107 CO2 (BEAKER) (test opkg=276) 19 meq/L 22-29 BLOOD UREA NITROGEN (BEAKER) (test zqvt=720) 24 mg/dL 7-21 CREATININE (BEAKER) (test jjqe=802) 1.76 mg/dL 0.57-1.25 GLUCOSE RANDOM (BEAKER) (test ajce=164) 96 mg/dL 70-105 CALCIUM (BEAKER) (test jqpp=706) 8.7 mg/dL 8.4-10.2 EGFR (BEAKER) (test tmob=5455) 49 mL/min/1.73 sq m ESTIMATED GFR IS NOT ACCURATE CREATININE CLEARANCE IN PREDICTING GLOMERULAR FILTRATION RATE. ESTIMATED GFR IS NOT APPLICABLE FOR DIALYSIS PATIENTS. CBC W/PLT COUNT & AUTO [id number] 15:10:00* Test Item Value Reference Range Comments WHITE BLOOD CELL COUNT (BEAKER) (test blit=369) 7.8 K/ L 3.5-10.5 RED BLOOD CELL COUNT (BEAKER) (test ixjo=030) 3.21 M/ L 4.63-6.08 HEMOGLOBIN (BEAKER) (test hjfq=357) 9.0 GM/DL 13.7-17.5 HEMATOCRIT (BEAKER) (test pojk=267) 29.4 % 40.1-51.0 MEAN CORPUSCULAR VOLUME (BEAKER) (test etfk=161) 91.6 fL 79.0-92.2 MEAN CORPUSCULAR HEMOGLOBIN (BEAKER) (test fdqn=784) 28.0 pg 25.7-32.2 MEAN CORPUSCULAR HEMOGLOBIN CONC (BEAKER) (test exlv=053) 30.6 GM/DL 32.3-36.5 RED CELL DISTRIBUTION WIDTH (BEAKER) (test ydwy=827) 16.7 % 11.6-14.4 PLATELET COUNT (BEAKER) (test gfij=998) 359 K/CU MM 150-450 MEAN PLATELET VOLUME (BEAKER) (test vdud=764) 9.0 fL 9.4-12.4 NUCLEATED RED BLOOD CELLS (BEAKER) (test ilec=960) 0 /100 WBC 0-0 NEUTROPHILS RELATIVE PERCENT (BEAKER) (test vwpc=517) 77 % LYMPHOCYTES RELATIVE PERCENT (BEAKER) (test nndc=158) 14 % MONOCYTES RELATIVE PERCENT (BEAKER) (test apgr=351) 7 % EOSINOPHILS RELATIVE PERCENT (BEAKER) (test azpe=191) 1 % BASOPHILS RELATIVE PERCENT (BEAKER) (test vvmk=624) 0 % NEUTROPHILS ABSOLUTE COUNT (BEAKER) (test bmit=302) 6.04 K/ L 1.78-5.38 LYMPHOCYTES ABSOLUTE COUNT (BEAKER) (test sbdj=570) 1.12 K/ L 1.32-3.57 MONOCYTES ABSOLUTE COUNT (BEAKER) (test nugy=397) 0.55 K/ L 0.30-0.82 EOSINOPHILS ABSOLUTE COUNT (BEAKER) (test kldf=979) 0.06 K/ L 0.04-0.54 BASOPHILS ABSOLUTE COUNT (BEAKER) (test jdwt=806) 0.01 K/ L 0.01-0.08 IMMATURE GRANULOCYTES-RELATIVE PERCENT (BEAKER) (test bkam=7397) 1 % 0-1 WOUND CULTURE + GRAM [id number] 07:39:00* Test Item Value Reference Range Comments CULTURE (BEAKER) (test upeq=8020) See comment GRAM STAIN RESULT (BEAKER) (test iqgk=2977) 1+ White blood cells seen GRAM STAIN RESULT (BEAKER) (test mauw=712747) 1+ gram negative rods GRAM STAIN RESULT (BEAKER) (test gjrc=823654) 1+ gram positive cocci in pairs 3+ Enteric organisms of >2 types, No Further workup3+ Skin floraHEPATIC FUNCTION [id number] 08:15:00* Test Item Value Reference Range Comments TOTAL PROTEIN (BEAKER) (test qrmj=860) 8.7 gm/dL 6.0-8.3 ALBUMIN (BEAKER) (test rbcu=5121) 3.2 g/dL 3.5-5.0 BILIRUBIN TOTAL (BEAKER) (test cmia=935) 0.3 mg/dL 0.2-1.2 BILIRUBIN DIRECT (BEAKER) (test hxim=091) 0.2 mg/dL 0.1-0.5 ALKALINE PHOSPHATASE (BEAKER) (test sicq=461) 156 U/L 40-150 AST (SGOT) (BEAKER) (test cmqr=634) 13 U/L 5-34 ALT (SGPT) (BEAKER) (test grxk=585) 10 U/L 6-55 BASIC METABOLIC [id number] 08:15:00* Test Item Value Reference Range Comments SODIUM (BEAKER) (test pfao=534) 135 meq/L 136-145 POTASSIUM (BEAKER) (test bsde=611) 4.1 meq/L 3.5-5.1 CHLORIDE (BEAKER) (test rrpq=945) 107 meq/L 98-107 CO2 (BEAKER) (test xewk=536) 20 meq/L 22-29 BLOOD UREA NITROGEN (BEAKER) (test qewo=456) 20 mg/dL 7-21 CREATININE (BEAKER) (test xssn=227) 1.50 mg/dL 0.57-1.25 GLUCOSE RANDOM (BEAKER) (test qhsk=764) 101 mg/dL 70-105 CALCIUM (BEAKER) (test yljs=503) 9.2 mg/dL 8.4-10.2 EGFR (BEAKER) (test ereh=6883) 59 mL/min/1.73 sq m ESTIMATED GFR IS NOT ACCURATE CREATININE CLEARANCE IN PREDICTING GLOMERULAR FILTRATION RATE. ESTIMATED GFR IS NOT APPLICABLE FOR DIALYSIS PATIENTS. CBC W/PLT COUNT & AUTO [id number] 07:57:00* Test Item Value Reference Range Comments WHITE BLOOD CELL COUNT (BEAKER) (test fuxi=135) 5.8 K/ L 3.5-10.5 RED BLOOD CELL COUNT (BEAKER) (test sqjn=091) 3.46 M/ L 4.63-6.08 HEMOGLOBIN (BEAKER) (test twev=965) 9.7 GM/DL 13.7-17.5 HEMATOCRIT (BEAKER) (test ndzv=683) 32.0 % 40.1-51.0 MEAN CORPUSCULAR VOLUME (BEAKER) (test klsh=470) 92.5 fL 79.0-92.2 MEAN CORPUSCULAR HEMOGLOBIN (BEAKER) (test dfco=539) 28.0 pg 25.7-32.2 MEAN CORPUSCULAR HEMOGLOBIN CONC (BEAKER) (test lgni=424) 30.3 GM/DL 32.3-36.5 RED CELL DISTRIBUTION WIDTH (BEAKER) (test qdxe=503) 15.9 % 11.6-14.4 PLATELET COUNT (BEAKER) (test kqzv=790) 430 K/CU MM 150-450 MEAN PLATELET VOLUME (BEAKER) (test mxwf=197) 9.1 fL 9.4-12.4 NUCLEATED RED BLOOD CELLS (BEAKER) (test fqar=689) 0 /100 WBC 0-0 NEUTROPHILS RELATIVE PERCENT (BEAKER) (test xynz=719) 72 % LYMPHOCYTES RELATIVE PERCENT (BEAKER) (test hxfe=372) 18 % MONOCYTES RELATIVE PERCENT (BEAKER) (test eeod=058) 8 % EOSINOPHILS RELATIVE PERCENT (BEAKER) (test dwkl=693) 2 % BASOPHILS RELATIVE PERCENT (BEAKER) (test opnv=217) 0 % NEUTROPHILS ABSOLUTE COUNT (BEAKER) (test uplo=680) 4.17 K/ L 1.78-5.38 LYMPHOCYTES ABSOLUTE COUNT (BEAKER) (test ubit=666) 1.02 K/ L 1.32-3.57 MONOCYTES ABSOLUTE COUNT (BEAKER) (test aftn=811) 0.45 K/ L 0.30-0.82 EOSINOPHILS ABSOLUTE COUNT (BEAKER) (test lpsf=239) 0.09 K/ L 0.04-0.54 BASOPHILS ABSOLUTE COUNT (BEAKER) (test svpb=737) 0.02 K/ L 0.01-0.08 IMMATURE GRANULOCYTES-RELATIVE PERCENT (BEAKER) (test klwn=5861) 0 % 0-1 RAD, FEMUR, MIN. 2 VIEWS, [id number] 00:18:00Reason for exam:->Left hip woundFINAL REPORT CLINICAL HISTORY: Left hip wound COMPARISON: [...] scan or MRI is recommended.. Signed: Tino Phillips MDReport Verified Date/Time: 11/15/2017 00:18:10 Reading Location: [address] Reading Room C-REACTIVE [id number] 22:05:00* Test Item Value Reference Range Comments C-REACTIVE PROTEIN (BEAKER) (test exyz=390) 11.82 mg/dL 0.00-0.50 URINALYSIS W/ REFLEX URINE [id number] 21:56:00* Test Item Value Reference Range Comments COLOR (BEAKER) (test ndbs=912) Yellow CLARITY (BEAKER) (test gwel=830) Hazy SPECIFIC GRAVITY UA (BEAKER) (test htjb=142) 1.013 1.001-1.035 PH UA (BEAKER) (test vxqb=371) 6.0 5.0-8.0 PROTEIN UA (BEAKER) (test mqdd=579) 300 mg/dL Negative GLUCOSE UA (BEAKER) (test pekx=964) 70 mg/dL Negative KETONES UA (BEAKER) (test myet=754) Negative Negative BILIRUBIN UA (BEAKER) (test tmpb=066) Negative Negative BLOOD UA (BEAKER) (test izvo=782) Small Negative NITRITE UA (BEAKER) (test koyb=744) Negative Negative LEUKOCYTE ESTERASE UA (BEAKER) (test vhhx=889) Large Negative UROBILINOGEN UA (BEAKER) (test azzu=687) 0.2 mg/dL 0.2-1.0 RBC UA (BEAKER) (test vbqz=180) 2 /HPF WBC UA (BEAKER) (test dniz=950) 54 /HPF BACTERIA (BEAKER) (test rfyh=760) Rare MUCUS (BEAKER) (test pgez=0216) Rare SQUAMOUS EPITHELIAL (BEAKER) (test uzys=997) 1 /HPF HYALINE CASTS (BEAKER) (test belq=752) 7 /LPF SOURCE(BURT) (test zjwl=8018) RAD, PELVIS, 1 OR 2 [id number] 21:26:00Reason for exam:->hip wound, osteoShould this be performed at the bedside?->NoFINAL REPORT RAD, PELVIS, 1 OR 2 VIEWS [...] is nearly completely eroded with shallow angulation. Addition ally, there is erosion bilaterally of the inferior pubic rami. Generalized bone stock is decreased. A left intramedullary ihtesh and nail is incompletely viewed. V isible portions spinal stabilization hardware are intact. Vascular stent materia l noted in the left iliac and inguinal regions. IMPRESSION: Expansile posttrau matic and erosive changes in the left hip suggesting a combination of heterotopi c ossification and likely underlying osteomyelitis. No visible acute fracture. E rosive changes bilaterally in the hips resulting in shallow acetabular angles as well as erosive changes involving the inferior pubic rami bilaterally. Signed: JR Cordova Robert MDReport Verified Date/Time: 11/14/2017 21:26:58 Readi ng Location: [address] Body Reading Room , HIP, 2 VIEWS, [id number] 21:25:00Reason for exam:->WOUND CHECKReason for exam:->L hip wound h/o osteo FINAL REPORT EXAM: Left hip 2 views COMPARISON: December 102016 Clinical history: Wound check FINDINGS: Resorption of the left femoral n trudi with heterotopic ossification is again noted. There is interval insertion of a left femoral IM hitesh. Callus formation is noted involving the oblique mid shaft fracture with mild lateral displacement of the distal fragment. If indicated, left femur series is recommended for further assessment. Signed: Paul Horton MDReport Verified Date/Time: 11/14/2017 21:25:11 Reading Location: [facility] [id number] Consult Reading Room Electronically signed by: PAUL HORTON M.D. on 09:25 PM BASIC METABOLIC [id number] 17:24:00* Test Item Value Reference Range Comments SODIUM (BEAKER) (test muau=220) 135 meq/L 136-145 POTASSIUM (BEAKER) (test wmpk=066) 4.1 meq/L 3.5-5.1 CHLORIDE (BEAKER) (test dxra=849) 106 meq/L 98-107 CO2 (BEAKER) (test ugmu=150) 21 meq/L 22-29 BLOOD UREA NITROGEN (BEAKER) (test gkra=195) 20 mg/dL 7-21 CREATININE (BEAKER) (test bcpi=062) 1.66 mg/dL 0.57-1.25 GLUCOSE RANDOM (BEAKER) (test dzwu=667) 111 mg/dL 70-105 CALCIUM (BEAKER) (test nzxk=295) 9.4 mg/dL 8.4-10.2 EGFR (BEAKER) (test tsdq=2039) 53 mL/min/1.73 sq m ESTIMATED GFR IS NOT ACCURATE CREATININE CLEARANCE IN PREDICTING GLOMERULAR FILTRATION RATE. ESTIMATED GFR IS NOT APPLICABLE FOR DIALYSIS PATIENTS. CBC W/PLT COUNT & AUTO [id number] 17:01:00* Test Item Value Reference Range Comments WHITE BLOOD CELL COUNT (BEAKER) (test qyah=842) 7.0 K/ L 3.5-10.5 RED BLOOD CELL COUNT (BEAKER) (test ixgj=969) 3.72 M/ L 4.63-6.08 HEMOGLOBIN (BEAKER) (test izsp=813) 10.4 GM/DL 13.7-17.5 HEMATOCRIT (BEAKER) (test cklp=156) 34.9 % 40.1-51.0 MEAN CORPUSCULAR VOLUME (BEAKER) (test cqqu=232) 93.8 fL 79.0-92.2 MEAN CORPUSCULAR HEMOGLOBIN (BEAKER) (test koxr=614) 28.0 pg 25.7-32.2 MEAN CORPUSCULAR HEMOGLOBIN CONC (BEAKER) (test kmcb=712) 29.8 GM/DL 32.3-36.5 RED CELL DISTRIBUTION WIDTH (BEAKER) (test wick=967) 15.8 % 11.6-14.4 PLATELET COUNT (BEAKER) (test nvtf=306) 403 K/CU MM 150-450 MEAN PLATELET VOLUME (BEAKER) (test nakq=251) 9.0 fL 9.4-12.4 NUCLEATED RED BLOOD CELLS (BEAKER) (test aepa=780) 0 /100 WBC 0-0 NEUTROPHILS RELATIVE PERCENT (BEAKER) (test vtfa=936) 79 % LYMPHOCYTES RELATIVE PERCENT (BEAKER) (test szlr=242) 14 % MONOCYTES RELATIVE PERCENT (BEAKER) (test bioi=350) 5 % EOSINOPHILS RELATIVE PERCENT (BEAKER) (test njsd=845) 1 % BASOPHILS RELATIVE PERCENT (BEAKER) (test vlgn=115) 0 % NEUTROPHILS ABSOLUTE COUNT (BEAKER) (test avxv=178) 5.59 K/ L 1.78-5.38 LYMPHOCYTES ABSOLUTE COUNT (BEAKER) (test ovhj=470) 0.95 K/ L 1.32-3.57 MONOCYTES ABSOLUTE COUNT (BEAKER) (test rvjp=425) 0.37 K/ L 0.30-0.82 EOSINOPHILS ABSOLUTE COUNT (BEAKER) (test abbf=880) 0.07 K/ L 0.04-0.54 BASOPHILS ABSOLUTE COUNT (BEAKER) (test rlzb=774) 0.02 K/ L 0.01-0.08 IMMATURE GRANULOCYTES-RELATIVE PERCENT (BEAKER) (test rjqh=6364) 1 % 0-1 BASIC METABOLIC [id number] 09:39:00* Test Item Value Reference Range Comments SODIUM (BEAKER) (test sdih=714) 140 meq/L 136-145 POTASSIUM (BEAKER) (test nqch=649) 5.3 meq/L 3.5-5.1 CHLORIDE (BEAKER) (test jhzr=961) 110 meq/L 98-107 CO2 (BEAKER) (test kvoq=789) 21 meq/L 22-29 BLOOD UREA NITROGEN (BEAKER) (test innl=899) 22 mg/dL 7-21 CREATININE (BEAKER) (test ltem=779) 1.15 mg/dL 0.57-1.25 GLUCOSE RANDOM (BEAKER) (test kgga=785) 82 mg/dL 70-105 CALCIUM (BEAKER) (test zvox=666) 8.9 mg/dL 8.4-10.2 EGFR (BEAKER) (test tuab=8652) 81 mL/min/1.73 sq m ESTIMATED GFR IS NOT ACCURATE CREATININE CLEARANCE IN PREDICTING GLOMERULAR FILTRATION RATE. ESTIMATED GFR IS NOT APPLICABLE FOR DIALYSIS PATIENTS. ANAEROBIC [id number] 03:57:00* Test Item Value Reference Range Comments CULTURE (BEAKER) (test oyyh=8001) No anaerobes isolated BASIC METABOLIC [id number] 06:19:00* Test Item Value Reference Range Comments SODIUM (BEAKER) (test jzya=215) 136 meq/L 136-145 POTASSIUM (BEAKER) (test dslb=081) 5.2 meq/L 3.5-5.1 CHLORIDE (BEAKER) (test wyhl=589) 109 meq/L 98-107 CO2 (BEAKER) (test tmkg=494) 19 meq/L 22-29 BLOOD UREA NITROGEN (BEAKER) (test rrgn=254) 23 mg/dL 7-21 CREATININE (BEAKER) (test qmah=864) 1.08 mg/dL 0.57-1.25 GLUCOSE RANDOM (BEAKER) (test lgrm=223) 97 mg/dL 70-105 CALCIUM (BEAKER) (test bqai=368) 8.5 mg/dL 8.4-10.2 EGFR (BEAKER) (test vawf=0317) 87 mL/min/1.73 sq m ESTIMATED GFR IS NOT ACCURATE CREATININE CLEARANCE IN PREDICTING GLOMERULAR FILTRATION RATE. ESTIMATED GFR IS NOT APPLICABLE FOR DIALYSIS PATIENTS. BASIC METABOLIC [id number] 11:32:00* Test Item Value Reference Range Comments SODIUM (BEAKER) (test kzeb=438) 137 meq/L 136-145 POTASSIUM (BEAKER) (test cjdz=514) 5.1 meq/L 3.5-5.1 Specimen slightly hemolyzed CHLORIDE (BEAKER) (test syva=987) 109 meq/L 98-107 CO2 (BEAKER) (test eyfe=149) 18 meq/L 22-29 BLOOD UREA NITROGEN (BEAKER) (test bmqq=764) 25 mg/dL 7-21 CREATININE (BEAKER) (test ucuj=772) 1.22 mg/dL 0.57-1.25 Specimen slightly hemolyzed GLUCOSE RANDOM (BEAKER) (test lkyg=469) 84 mg/dL 70-105 CALCIUM (BEAKER) (test vbmz=031) 8.7 mg/dL 8.4-10.2 EGFR (BEAKER) (test cxxf=9443) 75 mL/min/1.73 sq m ESTIMATED GFR IS NOT ACCURATE CREATININE CLEARANCE IN PREDICTING GLOMERULAR FILTRATION RATE. ESTIMATED GFR IS NOT APPLICABLE FOR DIALYSIS PATIENTS. PROTHROMBIN [id number] 06:43:00* Test Item Value Reference Range Comments PROTIME (BEAKER) (test yigi=266) 15.8 seconds 11.7-14.7 INR (BEAKER) (test arsj=238) 1.3 <=5.9 RECOMMENDED COUMADIN/WARFARIN INR THERAPY RANGESSTANDARD DOSE: 2.0 - 3.0 Inclu oneil: PROPHYLAXIS for venous thrombosis, systemic embolization; TREATMENT for shannan ous thrombosis and/or pulmonary embolus.HIGH RISK: Target INR is 2.5-3.5 for pat ients with mechanical heart valves.CBC W/PLT COUNT & AUTO [id number] 06:40:00* Test Item Value Reference Range Comments WHITE BLOOD CELL COUNT (BEAKER) (test sjrw=592) 9.0 K/ L 3.5-10.5 RED BLOOD CELL COUNT (BEAKER) (test dlnd=989) 3.76 M/ L 4.63-6.08 HEMOGLOBIN (BEAKER) (test czod=720) 10.9 GM/DL 13.7-17.5 HEMATOCRIT (BEAKER) (test olgh=212) 36.2 % 40.1-51.0 MEAN CORPUSCULAR VOLUME (BEAKER) (test uvxu=108) 96.3 fL 79.0-92.2 MEAN CORPUSCULAR HEMOGLOBIN (BEAKER) (test hwzd=734) 29.0 pg 25.7-32.2 MEAN CORPUSCULAR HEMOGLOBIN CONC (BEAKER) (test emtn=050) 30.1 GM/DL 32.3-36.5 RED CELL DISTRIBUTION WIDTH (BEAKER) (test vjdn=588) 17.3 % 11.6-14.4 PLATELET COUNT (BEAKER) (test ozef=059) 291 K/CU MM 150-450 MEAN PLATELET VOLUME (BEAKER) (test jigw=001) 10.4 fL 9.4-12.4 NUCLEATED RED BLOOD CELLS (BEAKER) (test jbjh=669) 0 /100 WBC 0-0 NEUTROPHILS RELATIVE PERCENT (BEAKER) (test ltea=001) 64 % LYMPHOCYTES RELATIVE PERCENT (BEAKER) (test uulh=113) 29 % MONOCYTES RELATIVE PERCENT (BEAKER) (test yute=881) 5 % EOSINOPHILS RELATIVE PERCENT (BEAKER) (test ybxz=285) 2 % BASOPHILS RELATIVE PERCENT (BEAKER) (test rkuj=996) 0 % NEUTROPHILS ABSOLUTE COUNT (BEAKER) (test sloq=973) 5.77 K/ L 1.78-5.38 LYMPHOCYTES ABSOLUTE COUNT (BEAKER) (test osyh=527) 2.59 K/ L 1.32-3.57 MONOCYTES ABSOLUTE COUNT (BEAKER) (test peiy=477) 0.44 K/ L 0.30-0.82 EOSINOPHILS ABSOLUTE COUNT (BEAKER) (test wqqd=024) 0.15 K/ L 0.04-0.54 BASOPHILS ABSOLUTE COUNT (BEAKER) (test pmua=358) 0.04 K/ L 0.01-0.08 IMMATURE GRANULOCYTES-RELATIVE PERCENT (BEAKER) (test semo=4558) 0 % 0-1 BODY FLUID CULTURE + GRAM [id number] 15:51:00* Test Item Value Reference Range Comments CULTURE (BEAKER) (test igyb=3267) No growth GRAM STAIN RESULT (BEAKER) (test daam=3546) <1+ WBCs GRAM STAIN RESULT (BEAKER) (test fdet=89379) No organisms seen CBC W/PLT COUNT & AUTO [id number] 06:25:00* Test Item Value Reference Range Comments WHITE BLOOD CELL COUNT (BEAKER) (test lxqd=223) 9.4 K/ L 3.5-10.5 RED BLOOD CELL COUNT (BEAKER) (test agsk=522) 3.78 M/ L 4.63-6.08 HEMOGLOBIN (BEAKER) (test xfcd=783) 11.1 GM/DL 13.7-17.5 HEMATOCRIT (BEAKER) (test wpmb=048) 36.6 % 40.1-51.0 MEAN CORPUSCULAR VOLUME (BEAKER) (test crlf=688) 96.8 fL 79.0-92.2 MEAN CORPUSCULAR HEMOGLOBIN (BEAKER) (test uxkb=818) 29.4 pg 25.7-32.2 MEAN CORPUSCULAR HEMOGLOBIN CONC (BEAKER) (test rfkp=734) 30.3 GM/DL 32.3-36.5 RED CELL DISTRIBUTION WIDTH (BEAKER) (test eoeo=713) 17.3 % 11.6-14.4 PLATELET COUNT (BEAKER) (test zmsm=968) 298 K/CU MM 150-450 MEAN PLATELET VOLUME (BEAKER) (test txph=753) 9.6 fL 9.4-12.4 NUCLEATED RED BLOOD CELLS (BEAKER) (test moci=728) 0 /100 WBC 0-0 NEUTROPHILS RELATIVE PERCENT (BEAKER) (test dvkx=829) 66 % LYMPHOCYTES RELATIVE PERCENT (BEAKER) (test pwua=045) 27 % MONOCYTES RELATIVE PERCENT (BEAKER) (test ykgl=197) 4 % EOSINOPHILS RELATIVE PERCENT (BEAKER) (test qoly=398) 2 % BASOPHILS RELATIVE PERCENT (BEAKER) (test uzcb=389) 0 % NEUTROPHILS ABSOLUTE COUNT (BEAKER) (test nqbc=738) 6.21 K/ L 1.78-5.38 LYMPHOCYTES ABSOLUTE COUNT (BEAKER) (test uhjf=764) 2.57 K/ L 1.32-3.57 MONOCYTES ABSOLUTE COUNT (BEAKER) (test wybm=689) 0.40 K/ L 0.30-0.82 EOSINOPHILS ABSOLUTE COUNT (BEAKER) (test yxlm=421) 0.14 K/ L 0.04-0.54 BASOPHILS ABSOLUTE COUNT (BEAKER) (test mvmp=182) 0.02 K/ L 0.01-0.08 IMMATURE GRANULOCYTES-RELATIVE PERCENT (BEAKER) (test uipx=3585) 0 % 0-1 BASIC METABOLIC [id number] 06:50:00* Test Item Value Reference Range Comments SODIUM (BEAKER) (test pvbf=358) 137 meq/L 136-145 POTASSIUM (BEAKER) (test vxvq=340) 4.8 meq/L 3.5-5.1 Specimen slightly hemolyzed CHLORIDE (BEAKER) (test jorq=225) 107 meq/L 98-107 CO2 (BEAKER) (test tiop=445) 22 meq/L 22-29 BLOOD UREA NITROGEN (BEAKER) (test yffb=708) 24 mg/dL 7-21 CREATININE (BEAKER) (test rxiy=734) 1.32 mg/dL 0.57-1.25 Specimen slightly hemolyzed GLUCOSE RANDOM (BEAKER) (test omdd=013) 90 mg/dL 70-105 CALCIUM (BEAKER) (test fnlb=123) 9.3 mg/dL 8.4-10.2 EGFR (BEAKER) (test sqxm=6493) 69 mL/min/1.73 sq m ESTIMATED GFR IS NOT ACCURATE CREATININE CLEARANCE IN PREDICTING GLOMERULAR FILTRATION RATE. ESTIMATED GFR IS NOT APPLICABLE FOR DIALYSIS PATIENTS. CBC W/PLT COUNT & AUTO [id number] 05:56:00* Test Item Value Reference Range Comments WHITE BLOOD CELL COUNT (BEAKER) (test sfio=861) 9.7 K/ L 3.5-10.5 RED BLOOD CELL COUNT (BEAKER) (test apet=031) 4.12 M/ L 4.63-6.08 HEMOGLOBIN (BEAKER) (test setw=595) 11.8 GM/DL 13.7-17.5 HEMATOCRIT (BEAKER) (test bboq=986) 39.8 % 40.1-51.0 MEAN CORPUSCULAR VOLUME (BEAKER) (test yccc=504) 96.6 fL 79.0-92.2 MEAN CORPUSCULAR HEMOGLOBIN (BEAKER) (test vtil=496) 28.6 pg 25.7-32.2 MEAN CORPUSCULAR HEMOGLOBIN CONC (BEAKER) (test adky=496) 29.6 GM/DL 32.3-36.5 RED CELL DISTRIBUTION WIDTH (BEAKER) (test znpf=525) 17.5 % 11.6-14.4 PLATELET COUNT (BEAKER) (test watr=740) 330 K/CU MM 150-450 MEAN PLATELET VOLUME (BEAKER) (test dvnq=006) 10.1 fL 9.4-12.4 NUCLEATED RED BLOOD CELLS (BEAKER) (test bvxu=968) 0 /100 WBC 0-0 NEUTROPHILS RELATIVE PERCENT (BEAKER) (test zvwu=627) 68 % LYMPHOCYTES RELATIVE PERCENT (BEAKER) (test lpcf=329) 26 % MONOCYTES RELATIVE PERCENT (BEAKER) (test uucs=537) 4 % EOSINOPHILS RELATIVE PERCENT (BEAKER) (test xthu=725) 1 % BASOPHILS RELATIVE PERCENT (BEAKER) (test bsss=003) 0 % NEUTROPHILS ABSOLUTE COUNT (BEAKER) (test dggj=881) 6.61 K/ L 1.78-5.38 LYMPHOCYTES ABSOLUTE COUNT (BEAKER) (test scvt=710) 2.51 K/ L 1.32-3.57 MONOCYTES ABSOLUTE COUNT (BEAKER) (test xixp=854) 0.37 K/ L 0.30-0.82 EOSINOPHILS ABSOLUTE COUNT (BEAKER) (test cbar=893) 0.12 K/ L 0.04-0.54 BASOPHILS ABSOLUTE COUNT (BEAKER) (test owrh=898) 0.04 K/ L 0.01-0.08 IMMATURE GRANULOCYTES-RELATIVE PERCENT (BEAKER) (test eist=4556) 1 % 0-1 CT, EXTREMITY, LOWER, WITH [id number] 00:42:00Left hip and thighAddendum BeginsREPORT STATUS:A The technique section of this exam should read as follows: Postcontrast axial CT images of the left femur were obtained with sagittal and coronal reformats. Signed: Sadie Hooker MDReport Verified Date/Time: 05/25/2017 00:42:38 Reading Location: [address] Reading RoomAddendum EndsFINAL REPORT CT, EXTREMIT Y, LOWER, WITH CONTRAST INDICATION: "Mass or lump, thigh" COMPARISON: MRI left h ip 05/02/2017 and x-ray left femur. 2018 TECHNIQUE: Noncontrast axial CT images of the left femur was obtained with sagittal and coronal reformats. DOSE REDUCTI ON: Dose modulation, iterative reconstruction, and/or weight-based adjustment of the mA/kV was utilized to reduce the radiation dose to as low as reasonably ach ievable. 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 There is periarticular heterotopic ossification and a periarticular collection of fluid and air. Of note, there is a posterior soft tissue wound at the level of the subtrochanteric femur which extends to the bon e. 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 Limited evaluation of the intrapelvic structures shows a suprapubic catheter. There is c omplete osseous fusion of the SI joints and lower lumbar spine. IMPRESSION:Redem onstration of a mid shaft femoral periprosthetic fracture.Decubitus ulcer along the posterior aspect of the subtrochanteric femur which extends to the bone. 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 Signed: Sadie Hooker MDReport Verified Date/Time: 05/22/2017 23:46:44 Readjossue cooper Location: [address] Reading Room ROBIC [id number] 21:37:00* Test Item Value Reference Range Comments CULTURE (BEAKER) (test rete=1545) No anaerobes isolated CT, FINE NEEDLE [id number] 17:15:00Reason for exam:->I\\T\\D of abscess: left femur- send for aerobic and after anaerobic culturesFINAL REPORT CT guided aspiration of left hip History: I\\T\\D of abscess: left femur- send for aerobic and after anaerobic cultures Comparison: CT dated May 22, 2017 Modality: CT, CT fluoroscopy Anesthesia: 1% lidocaine local Approach: Left anterior percutaneous Consent: The risks, benefits, and alternatives to the procedure were discussed with the patient. The patient expressed understanding and informed written consent was obtained. Time out: A pre-procedure time out was performed in order to confirm the appropriate site of the procedure. Sedation: Moderate sedation was not administered. Technique: This exam was performed according to our departmental dose optimization program which includes automated exposure control, adjustment of the mA and/or kV according to patient's size and/or use of iterative reconstructive technique. The patient was placed supine in the CT scanner. Left hip was localized using CT and CT fluor oscopy. After the usual sterile preparation and application of local anesthesi a, a 18-gauge spinal needle was advanced into left hip using CT guidance, ending for a debris and air collection. Approximately 1 cc of bloody fluid is aspirate d. Subsequently, using a 20-gauge Temno needle, several passes are made to obtai n core biopsies in the surrounding soft tissue, yielding a few small fragments. Specimen is sent to microbiology. Disposition: The patient tolerated the procedu re well, without immediate complications. The patient left CT in stable conditio n. Impression: 1. Technically successful CT guided aspiration and core biopsy of left hip soft tissue abnormality. Signed: Chris Cardenaseport Verified Date/Olu e: 05/23/2017 17:15:54 Reading Location: [facility] [id number] Ortho Consult Reading Ivelisse m D [id number] 00:00:00* Test Item Value Reference Range Comments CULTURE (BEAKER) (test dmzz=1929) No growth in 5 days WOUND CULTURE + GRAM [id number] 09:02:00* Test Item Value Reference Range Comments CULTURE (BEAKER) (test wass=7705) See comment GRAM STAIN RESULT (BEAKER) (test cuxp=7524) <1+ WBCs GRAM STAIN RESULT (BEAKER) (test zuqq=348716) 4+ gram positive rods GRAM STAIN RESULT (BEAKER) (test wdvg=847636) 1+ yeast 4+ Enteric organisms of >3 types. No further workup.4+ Skin floraBASIC METABOLIC [id number] 07:32:00* Test Item Value Reference Range Comments SODIUM (BEAKER) (test lgia=475) 137 meq/L 136-145 POTASSIUM (BEAKER) (test trst=216) 5.1 meq/L 3.5-5.1 Specimen slightly hemolyzed CHLORIDE (BEAKER) (test atkp=615) 109 meq/L 98-107 CO2 (BEAKER) (test lgek=878) 20 meq/L 22-29 BLOOD UREA NITROGEN (BEAKER) (test pcqh=993) 25 mg/dL 7-21 CREATININE (BEAKER) (test yodb=622) 1.22 mg/dL 0.57-1.25 Specimen slightly hemolyzed GLUCOSE RANDOM (BEAKER) (test wjmo=650) 95 mg/dL 70-105 CALCIUM (BEAKER) (test kqvi=169) 8.6 mg/dL 8.4-10.2 EGFR (BEAKER) (test vbmh=7611) 75 mL/min/1.73 sq m ESTIMATED GFR IS NOT ACCURATE CREATININE CLEARANCE IN PREDICTING GLOMERULAR FILTRATION RATE. ESTIMATED GFR IS NOT APPLICABLE FOR DIALYSIS PATIENTS. CBC W/PLT COUNT & AUTO [id number] 07:04:00* Test Item Value Reference Range Comments WHITE BLOOD CELL COUNT (BEAKER) (test zfal=816) 10.7 K/ L 3.5-10.5 RED BLOOD CELL COUNT (BEAKER) (test poqn=165) 3.86 M/ L 4.63-6.08 HEMOGLOBIN (BEAKER) (test bmdq=400) 11.1 GM/DL 13.7-17.5 HEMATOCRIT (BEAKER) (test wpkz=744) 37.5 % 40.1-51.0 MEAN CORPUSCULAR VOLUME (BEAKER) (test jrok=163) 97.2 fL 79.0-92.2 MEAN CORPUSCULAR HEMOGLOBIN (BEAKER) (test vtiv=849) 28.8 pg 25.7-32.2 MEAN CORPUSCULAR HEMOGLOBIN CONC (BEAKER) (test bkvh=589) 29.6 GM/DL 32.3-36.5 RED CELL DISTRIBUTION WIDTH (BEAKER) (test dlsn=871) 17.8 % 11.6-14.4 PLATELET COUNT (BEAKER) (test uygh=906) 343 K/CU MM 150-450 MEAN PLATELET VOLUME (BEAKER) (test kzry=103) 9.6 fL 9.4-12.4 NUCLEATED RED BLOOD CELLS (BEAKER) (test fgbf=149) 0 /100 WBC 0-0 NEUTROPHILS RELATIVE PERCENT (BEAKER) (test uzbu=304) 64 % LYMPHOCYTES RELATIVE PERCENT (BEAKER) (test ozgc=085) 27 % MONOCYTES RELATIVE PERCENT (BEAKER) (test byke=792) 6 % EOSINOPHILS RELATIVE PERCENT (BEAKER) (test puah=253) 2 % BASOPHILS RELATIVE PERCENT (BEAKER) (test jjlj=713) 0 % NEUTROPHILS ABSOLUTE COUNT (BEAKER) (test puvr=301) 6.91 K/ L 1.78-5.38 LYMPHOCYTES ABSOLUTE COUNT (BEAKER) (test kuwz=841) 2.86 K/ L 1.32-3.57 MONOCYTES ABSOLUTE COUNT (BEAKER) (test wafk=040) 0.61 K/ L 0.30-0.82 EOSINOPHILS ABSOLUTE COUNT (BEAKER) (test mrtz=777) 0.18 K/ L 0.04-0.54 BASOPHILS ABSOLUTE COUNT (BEAKER) (test yhbu=730) 0.04 K/ L 0.01-0.08 IMMATURE GRANULOCYTES-RELATIVE PERCENT (BEAKER) (test roqe=9689) 1 % 0-1 [id number] 08:45:00* Test Item Value Reference Range Comments PROTIME (BEAKER) (test ydaq=972) 13.6 seconds 11.7-14.7 INR (BEAKER) (test fcqn=698) 1.0 <=5.9 PARTIAL THROMBOPLASTIN TIME (BEAKER) (test zwvf=631) 29.2 seconds 22.5-36.0 RECOMMENDED COUMADIN/WARFARIN INR THERAPY RANGESSTANDARD DOSE: 2.0 - 3.0 Inclu oneil: PROPHYLAXIS for venous thrombosis, systemic embolization; TREATMENT for shannan ous thrombosis and/or pulmonary embolus.HIGH RISK: Target INR is 2.5-3.5 for pat ients with mechanical heart valves.PLATELET [id number] 08:18:00* Test Item Value Reference Range Comments PLATELET COUNT (BEAKER) (test xuev=818) 363 K/CU MM 150-450 CATHETER TIP [id number] 08:05:00* Test Item Value Reference Range Comments CULTURE (BEAKER) (test mmjp=2168) No growth WOUND CULTURE + GRAM [id number] 08:04:00* Test Item Value Reference Range Comments CULTURE (BEAKER) (test trzi=3165) Amikacin (test code=1) Susceptible 0-16 , Resistant <0 or >16 Aztreonam (test code=32) Susceptible 0-8 , Resistant <0 or >8 Cefepime (test code=51) Susceptible 0-8 , Resistant <0 or >8 Ceftazidime (test code=27) Susceptible 0-8 , Resistant <0 or >8 Ciprofloxacin (test code=7) Susceptible 0-1 , Resistant <0 or >1 Doripenem (test sstj=008) Susceptible 0-2 , Resistant <0 or >2 Gentamicin (test code=18) Susceptible 0-4 , Resistant <0 or >4 Imipenem (test code=19) Susceptible 0-2 , Resistant <0 or >2 Levofloxacin (test code=22) Susceptible 0-2 , Resistant <0 or >2 Meropenem (test code=34) Susceptible 0-2 , Resistant <0 or >2 Piperacillin (test code=24) Susceptible 0-16 , Resistant <0 or >16 Piperacillin + Tazobactam (test code=29) Susceptible 0-16 , Resistant <0 or >16 Tobramycin (test code=25) Susceptible 0-4 , Resistant <0 or >4 CULTURE (BEAKER) (test tobt=7702) 1+ Pseudomonas aeruginosa GRAM STAIN RESULT (BEAKER) (test fxbz=9440) <1+ White blood cells seen GRAM STAIN RESULT (BEAKER) (test vokr=546959) No organisms seen 1+ Skin floraBASIC METABOLIC [id number] 07:39:00* Test Item Value Reference Range Comments SODIUM (BEAKER) (test eazv=091) 136 meq/L 136-145 POTASSIUM (BEAKER) (test anav=170) 4.4 meq/L 3.5-5.1 CHLORIDE (BEAKER) (test mizs=025) 107 meq/L 98-107 CO2 (BEAKER) (test aolx=228) 21 meq/L 22-29 BLOOD UREA NITROGEN (BEAKER) (test zacw=041) 20 mg/dL 7-21 CREATININE (BEAKER) (test atch=451) 1.19 mg/dL 0.57-1.25 GLUCOSE RANDOM (BEAKER) (test gjqn=914) 97 mg/dL 70-105 CALCIUM (BEAKER) (test lpib=772) 8.7 mg/dL 8.4-10.2 EGFR (BEAKER) (test tlmz=9930) 78 mL/min/1.73 sq m ESTIMATED GFR IS NOT ACCURATE CREATININE CLEARANCE IN PREDICTING GLOMERULAR FILTRATION RATE. ESTIMATED GFR IS NOT APPLICABLE FOR DIALYSIS PATIENTS. CBC (HEMOGRAM ONLY)2017-05-18 06:14:00* Test Item Value Reference Range Comments WHITE BLOOD CELL COUNT (BEAKER) (test ntem=242) 10.7 K/ L 3.5-10.5 RED BLOOD CELL COUNT (BEAKER) (test vfbs=281) 3.84 M/ L 4.63-6.08 HEMOGLOBIN (BEAKER) (test msqj=146) 11.1 GM/DL 13.7-17.5 HEMATOCRIT (BEAKER) (test iehi=477) 36.1 % 40.1-51.0 MEAN CORPUSCULAR VOLUME (BEAKER) (test fgjs=563) 94.0 fL 79.0-92.2 MEAN CORPUSCULAR HEMOGLOBIN (BEAKER) (test owqd=588) 28.9 pg 25.7-32.2 MEAN CORPUSCULAR HEMOGLOBIN CONC (BEAKER) (test gcdn=087) 30.7 GM/DL 32.3-36.5 RED CELL DISTRIBUTION WIDTH (BEAKER) (test iyrg=003) 17.2 % 11.6-14.4 PLATELET COUNT (BEAKER) (test gsmj=919) 373 K/CU MM 150-450 MEAN PLATELET VOLUME (BEAKER) (test dvsm=212) 10.0 fL 9.4-12.4 NUCLEATED RED BLOOD CELLS (BEAKER) (test khwy=014) 0 /100 WBC 0-0 [id number] 07:41:00* Test Item Value Reference Range Comments PHOSPHORUS (BEAKER) (test qeza=662) 2.9 mg/dL 2.3-4.7 [id number] 07:41:00* Test Item Value Reference Range Comments MAGNESIUM (BEAKER) (test hfwy=020) 1.9 mg/dL 1.6-2.6 BASIC METABOLIC [id number] 07:41:00* Test Item Value Reference Range Comments SODIUM (BEAKER) (test gkcm=739) 135 meq/L 136-145 POTASSIUM (BEAKER) (test dspu=864) 4.2 meq/L 3.5-5.1 CHLORIDE (BEAKER) (test vuxq=216) 105 meq/L 98-107 CO2 (BEAKER) (test uwgg=600) 23 meq/L 22-29 BLOOD UREA NITROGEN (BEAKER) (test xkpe=836) 19 mg/dL 7-21 CREATININE (BEAKER) (test imwl=384) 1.18 mg/dL 0.57-1.25 GLUCOSE RANDOM (BEAKER) (test wqrb=398) 103 mg/dL 70-105 CALCIUM (BEAKER) (test vvja=317) 9.1 mg/dL 8.4-10.2 EGFR (BEAKER) (test gcsl=5028) 78 mL/min/1.73 sq m ESTIMATED GFR IS NOT ACCURATE CREATININE CLEARANCE IN PREDICTING GLOMERULAR FILTRATION RATE. ESTIMATED GFR IS NOT APPLICABLE FOR DIALYSIS PATIENTS. PROTHROMBIN TIME/[id number] 07:13:00* Test Item Value Reference Range Comments PROTIME (BURT) (test iuim=607) 14.5 seconds 11.7-14.7 INR (BURT) (test ywqj=912) 1.1 <=5.9 RECOMMENDED COUMADIN/WARFARIN INR THERAPY RANGESSTANDARD DOSE: 2.0 - 3.0 Inclu oneil: PROPHYLAXIS for venous thrombosis, systemic embolization; TREATMENT for shannan ous thrombosis and/or pulmonary embolus.HIGH RISK: Target INR is 2.5-3.5 for pat ients with mechanical heart valves.RAD, FEMUR, MIN. 2 VIEWS, [id number] 15:20:00Reason for exam:->left femur fractureFINAL REPORT AP pelvis, one image.Left femur, four images. HISTORY: Pelvic osteomyelitis. Femur fracture. COMPARISON: Left femur, 01/25/2017. Pelvis, 03/23/2016 IMPRESSION:Within the pelvis, changes of chronic hip dysplasia, chronic as well as an heterotopic ossification again demonstrated. No definite acute fracture. A left intramedullary nail is present. There is a spiral-type mid shaft femur fracture. Signed: Yudi Luciano Verified Date/Time: 05/16/2017 15:20:26 Reading Location: [facility] Reading Room , PELVIS, 1 OR 2 VIEWS 2017-05-16 15:20:00Reason for exam:->pelvis osteomyelitisFINAL REPORT AP pelvis, one image.Left femur, four images. HISTORY: Pelvic osteomyelitis. Femur fracture. COMPARISON: Left femur, 01/25/2017. Pelvis, 03/23/2016 IMPRESSION:Within the pelvis, changes of chronic hip dysplasia, chronic as well as an heterotopic ossification again demonstrated. No definite acute fracture. A left intramedullary nail is present. There is a spiral-type mid shaft femur fracture. Signed: Yudi Luciano Verified Date/Time: 05/16/2017 15:20:26 Reading Location: [facility] Reading Room MENTATION [id number] 15:15:00* Test Item Value Reference Range Comments SEDIMENTATION RATE, ERYTHROCYTE (BEAKER) (test xglj=833) > mm/HR 0-20 [id number] 13:48:00* Test Item Value Reference Range Comments PREALBUMIN (BEAKER) (test qocs=999) 20 mg/dL 14-45 Specimen slightly hemolyzed C-REACTIVE [id number] 13:43:00* Test Item Value Reference Range Comments C-REACTIVE PROTEIN (BEAKER) (test ongq=245) 2.07 mg/dL 0.00-0.50 [id number] 08:01:00* Test Item Value Reference Range Comments PHOSPHORUS (BEAKER) (test wpui=729) 3.0 mg/dL 2.3-4.7 [id number] 08:01:00* Test Item Value Reference Range Comments MAGNESIUM (BEAKER) (test mczx=696) 1.6 mg/dL 1.6-2.6 BASIC METABOLIC [id number] 08:01:00* Test Item Value Reference Range Comments SODIUM (BEAKER) (test pgkd=086) 135 meq/L 136-145 POTASSIUM (BEAKER) (test zqvt=193) 4.0 meq/L 3.5-5.1 CHLORIDE (BEAKER) (test gcti=637) 106 meq/L 98-107 CO2 (BEAKER) (test snes=715) 21 meq/L 22-29 BLOOD UREA NITROGEN (BEAKER) (test buzy=707) 23 mg/dL 7-21 CREATININE (BEAKER) (test zrtk=445) 1.26 mg/dL 0.57-1.25 GLUCOSE RANDOM (BEAKER) (test veth=949) 96 mg/dL 70-105 CALCIUM (BEAKER) (test qnyf=556) 8.2 mg/dL 8.4-10.2 EGFR (BEAKER) (test yfsr=0927) 73 mL/min/1.73 sq m ESTIMATED GFR IS NOT ACCURATE CREATININE CLEARANCE IN PREDICTING GLOMERULAR FILTRATION RATE. ESTIMATED GFR IS NOT APPLICABLE FOR DIALYSIS PATIENTS. PROTHROMBIN [id number] 07:16:00* Test Item Value Reference Range Comments PROTIME (BEAKER) (test gmzy=972) 14.0 seconds 11.7-14.7 INR (BEAKER) (test rxql=499) 1.1 <=5.9 RECOMMENDED COUMADIN/WARFARIN INR THERAPY RANGESSTANDARD DOSE: 2.0 - 3.0 Inclu oneil: PROPHYLAXIS for venous thrombosis, systemic embolization; TREATMENT for shannan ous thrombosis and/or pulmonary embolus.HIGH RISK: Target INR is 2.5-3.5 for pat ients with mechanical heart valves.CBC (HEMOGRAM ONLY)2017-05-16 07:04:00* Test Item Value Reference Range Comments WHITE BLOOD CELL COUNT (BEAKER) (test gdkq=858) 8.9 K/ L 3.5-10.5 RED BLOOD CELL COUNT (BEAKER) (test olxl=820) 3.39 M/ L 4.63-6.08 HEMOGLOBIN (BEAKER) (test ferc=544) 9.7 GM/DL 13.7-17.5 HEMATOCRIT (BEAKER) (test ybyv=875) 32.1 % 40.1-51.0 MEAN CORPUSCULAR VOLUME (BEAKER) (test aanf=166) 94.7 fL 79.0-92.2 MEAN CORPUSCULAR HEMOGLOBIN (BEAKER) (test upss=368) 28.6 pg 25.7-32.2 MEAN CORPUSCULAR HEMOGLOBIN CONC (BEAKER) (test inqf=076) 30.2 GM/DL 32.3-36.5 RED CELL DISTRIBUTION WIDTH (BEAKER) (test pdyp=790) 17.2 % 11.6-14.4 PLATELET COUNT (BEAKER) (test lzbb=957) 304 K/CU MM 150-450 MEAN PLATELET VOLUME (BEAKER) (test tcfs=060) 9.5 fL 9.4-12.4 NUCLEATED RED BLOOD CELLS (BEAKER) (test ehcb=545) 0 /100 WBC 0-0 [id number] 06:40:00* Test Item Value Reference Range Comments PHOSPHORUS (BEAKER) (test emgi=455) 2.8 mg/dL 2.3-4.7 [id number] 06:40:00* Test Item Value Reference Range Comments MAGNESIUM (BEAKER) (test veuc=655) 1.6 mg/dL 1.6-2.6 BASIC METABOLIC [id number] 06:40:00* Test Item Value Reference Range Comments SODIUM (BEAKER) (test wclq=878) 137 meq/L 136-145 POTASSIUM (BEAKER) (test shda=513) 4.1 meq/L 3.5-5.1 CHLORIDE (BEAKER) (test ckkz=764) 108 meq/L 98-107 CO2 (BEAKER) (test nsis=083) 22 meq/L 22-29 BLOOD UREA NITROGEN (BEAKER) (test ejtw=346) 25 mg/dL 7-21 CREATININE (BEAKER) (test ydug=909) 1.23 mg/dL 0.57-1.25 GLUCOSE RANDOM (BEAKER) (test dryn=857) 99 mg/dL 70-105 CALCIUM (BEAKER) (test sgtx=838) 8.7 mg/dL 8.4-10.2 EGFR (BEAKER) (test fghs=2104) 75 mL/min/1.73 sq m ESTIMATED GFR IS NOT ACCURATE CREATININE CLEARANCE IN PREDICTING GLOMERULAR FILTRATION RATE. ESTIMATED GFR IS NOT APPLICABLE FOR DIALYSIS PATIENTS. CBC W/PLT COUNT & AUTO [id number] 06:16:00* Test Item Value Reference Range Comments WHITE BLOOD CELL COUNT (BEAKER) (test fffb=386) 10.7 K/ L 3.5-10.5 RED BLOOD CELL COUNT (BEAKER) (test hyeh=002) 3.38 M/ L 4.63-6.08 HEMOGLOBIN (BEAKER) (test shed=276) 9.9 GM/DL 13.7-17.5 HEMATOCRIT (BEAKER) (test vlfr=436) 32.2 % 40.1-51.0 MEAN CORPUSCULAR VOLUME (BEAKER) (test epit=121) 95.3 fL 79.0-92.2 MEAN CORPUSCULAR HEMOGLOBIN (BEAKER) (test wnoo=265) 29.3 pg 25.7-32.2 MEAN CORPUSCULAR HEMOGLOBIN CONC (BEAKER) (test xwnc=910) 30.7 GM/DL 32.3-36.5 RED CELL DISTRIBUTION WIDTH (BEAKER) (test otst=140) 17.2 % 11.6-14.4 PLATELET COUNT (BEAKER) (test tkjw=788) 304 K/CU MM 150-450 MEAN PLATELET VOLUME (BEAKER) (test kpyp=427) 9.6 fL 9.4-12.4 NUCLEATED RED BLOOD CELLS (BEAKER) (test dvhv=550) 0 /100 WBC 0-0 NEUTROPHILS RELATIVE PERCENT (BEAKER) (test shky=081) 77 % LYMPHOCYTES RELATIVE PERCENT (BEAKER) (test nfqf=173) 16 % MONOCYTES RELATIVE PERCENT (BEAKER) (test gmih=257) 6 % EOSINOPHILS RELATIVE PERCENT (BEAKER) (test ebrm=070) 1 % BASOPHILS RELATIVE PERCENT (BEAKER) (test lbag=736) 0 % NEUTROPHILS ABSOLUTE COUNT (BEAKER) (test ifwp=851) 8.18 K/ L 1.78-5.38 LYMPHOCYTES ABSOLUTE COUNT (BEAKER) (test tzhd=584) 1.70 K/ L 1.32-3.57 MONOCYTES ABSOLUTE COUNT (BEAKER) (test xzft=752) 0.63 K/ L 0.30-0.82 EOSINOPHILS ABSOLUTE COUNT (BEAKER) (test unlp=720) 0.08 K/ L 0.04-0.54 BASOPHILS ABSOLUTE COUNT (BEAKER) (test myah=357) 0.02 K/ L 0.01-0.08 IMMATURE GRANULOCYTES-RELATIVE PERCENT (BEAKER) (test tzqj=9508) 1 % 0-1 PROTHROMBIN [id number] 06:13:00* Test Item Value Reference Range Comments PROTIME (BEAKER) (test ddvv=589) 15.5 seconds 11.7-14.7 INR (BEAKER) (test tjmh=100) 1.2 <=5.9 RECOMMENDED COUMADIN/WARFARIN INR THERAPY RANGESSTANDARD DOSE: 2.0 - 3.0 Inclu oneil: PROPHYLAXIS for venous thrombosis, systemic embolization; TREATMENT for shannan ous thrombosis and/or pulmonary embolus.HIGH RISK: Target INR is 2.5-3.5 for pat ients with mechanical heart valves.MR, EXTREMITY, LOWER, [id number] 13:58:00 Reason for Exam:->open wound on left thigh draining copious amounts of yellow fluid Location->[facility] Armendar[facility] GleNavidINAL REPORT Indication: open wound on left thigh draining copious amounts of yellow fluid TECHNIQUE: Multiplanar multisequence MRI examination of the left hip and thigh was performed without and with intravenous contrast. COMPARISON: Radiographs from 01/25/2017 FINDINGS: Marked bony erosion and destructive changes are seen in the left hip with destruction or resection of the left femoral head and neck as well as marked bony erosions of the left acetabulum. There is an intramedullary hitesh in the left femur with associated hardware artifact. There are chronic posttraumatic deformities of the left hip and femur. There is a soft tissue defect posterior to the left proximal femur with fistulous communication extending deep and superiorly into the left hip posteriorly containing air measuring approximately 6.5 x 2.5 x 2.5 cm, suspicious for an infected cavity. More inferiorly, there are additional lobulated deep fluid collections anterior to the left femur measuring up to 5 x 10 cm in conglomerate, best seen on the coronal sequence, but not fully included on the axial sequences, suspicious for abscesses. There is partial visualization of edema in the left iliacus muscle with enhancement. There is nonspecific atrophy and edema throughout the muscles of the left hip and thigh. Enlarged left inguinal and pelvic side wall lymph nodes are likely reactive or inflammatory in nature. IMPRESSION:1. Marked bony erosion and destructive changes in the left hip and femur with posttraumatic c hange and intramedullary hitesh in the left femur.2. Soft tissue defect posterior t o the left proximal femur with fistulous communication extending deep and superi wilber into the left hip with an air-filled infected cavity as above.3. Additional lobulated fluid collections anterior to the left femur suspicious for abscesses. Signed: Ronaldo Skinner MDReport Verified Date/Time: 05/02/2017 13:58:46 Reading L ocation: [facility] B1 C013X Ortho Consult Reading Room -[id number] 10:32:00* Test Item Value Reference Range Comments POC-CREATININE (BEAKER) (test uxqj=3080) 1.4 mg/dL 0.6-1.3 [address]ED AT [address] [address] POC-EGFR (BEAKER) (test vbzl=7027) 64 mL/min/1.73M2 ANAEROBIC [id number] 23:56:00* Test Item Value Reference Range Comments CULTURE (Granite PropertiesAKER) (test fqbc=8298) No anaerobes isolated WOUND CULTURE + GRAM [id number] 12:35:00* Test Item Value Reference Range Comments CULTURE (Granite PropertiesAKER) (test ooen=9751) Amikacin (test code=1) Ampicillin + Sulbactam (test code=6) Aztreonam (test code=32) Cefepime (test code=51) Cefoxitin (test code=68) Ceftazidime (test code=27) Ceftriaxone (test code=52) Ertapenem (test code=38) Gentamicin (test code=18) Levofloxacin (test code=22) Meropenem (test code=34) Nitrofurantoin (test code=23) Piperacillin + Tazobactam (test code=29) Tetracycline (test code=2) Tobramycin (test code=25) Trimethoprim + Sulfamethoxazole (test code=47) CULTURE (BEAKER) (test evjj=8647) <1+ Proteus mirabilis GRAM STAIN RESULT (BEAKER) (test ydjx=9739) No White blood cells seen GRAM STAIN RESULT (BEAKER) (test vyll=081262) No organisms seen WOUND CULTURE + GRAM [id number] 07:56:00* Test Item Value Reference Range Comments CULTURE (BEAKER) (test zeoh=1848) See comment GRAM STAIN RESULT (BEAKER) (test slde=5633) 1+ WBCs GRAM STAIN RESULT (BEAKER) (test yqdl=84132) No organisms seen 1+ Skin floraANAEROBIC [id number] 03:39:00* Test Item Value Reference Range Comments CULTURE (BEAKER) (test kqrc=3660) No anaerobes isolated RAD, FEMUR, MIN. 2 VIEWS, [id number] 17:31:00Reason for Exam:->open wound of left hip and thighFINAL REPORT Technique: Multiple views of the left femur COMPARISON: Left hip x-ray, 01/04/2017 FINDINGS: There is marked deformity of the knee joint. Radiopaque structures project along the medial aspect of the proximal tibia, only partially depicted on this exam, presumably representing antibiotic beads. There is deformity of the proximal tibia and fibula. There is diffuse osteopenia. Cortical overgrowth along the mid femur noted, chronic in appearance. Again identified is a defect in the proximal left femur with nonvisualization of the femoral head and neck which may be postsurgical. Adjacent dystrophic soft tissue calcification again noted along with deformity of the acetabulum. A stent is partially depicted in the right pelvis. There is some deformity of the right shoulder tuberosity as well. IMPRESSION: Chronic findings of the left femur. No gross acute fracture, dislocation or obvious lytic lesions although the osteopenia and extensive deformity limits assessment for subtle abnormalities. Signed: Jae Buckner MDReport Verified Date/Time: 01/25/2017 17:31:57 Reading Location: [facility] Radiology Reading Room D CULTURE + GRAM [id number] 10:20:00* Test Item Value Reference Range Comments CULTURE (BEAKER) (test dknq=8557) <1+ Stenotrophomonas maltophilia CULTURE (BEAKER) (test fvcx=4168) PROTEUS MIRABILIS 2+ Beta-hemolytic streptococcus group C, by serological grouping Amikacin (test code=1) Ampicillin + Sulbactam (test code=6) Aztreonam (test code=32) Cefepime (test code=51) Cefoxitin (test code=68) Ceftazidime (test code=27) Ceftriaxone (test code=52) Ertapenem (test code=38) Gentamicin (test code=18) Levofloxacin (test code=22) Meropenem (test code=34) Nitrofurantoin (test code=23) Piperacillin + Tazobactam (test code=29) Tetracycline (test code=2) Tobramycin (test code=25) Trimethoprim + Sulfamethoxazole (test code=47) CULTURE (BEAKER) (test wiik=2065) STENOTROPHOMONAS MALTOPHILIA 1+ Proteus mirabilis Ceftazidime (test code=27) Levofloxacin (test code=22) Minocycline (test code=35) Trimethoprim + Sulfamethoxazole (test code=47) CULTURE (BEAKER) (test lqta=6263) CITROBACTER KOSERI 2+ Citrobacter koseri Amikacin (test code=1) Aztreonam (test code=32) Cefepime (test code=51) Cefoxitin (test code=68) Ceftazidime (test code=27) Ceftriaxone (test code=52) Ertapenem (test code=38) Gentamicin (test code=18) Levofloxacin (test code=22) Meropenem (test code=34) Piperacillin + Tazobactam (test code=29) Tetracycline (test code=2) Tobramycin (test code=25) Trimethoprim + Sulfamethoxazole (test code=47) CULTURE (BEAKER) (test qqam=4281) METHICILLIN RESISTANT STAPHYLOCOCCUS AUREUS <1+ Methicillin resistant Staphylococcus aureus Clindamycin (test code=10) Erythromycin (test code=4) Linezolid (test code=40) Oxacillin (test code=14) Rifampin (test code=43) Tetracycline (test code=2) Trimethoprim + Sulfamethoxazole (test code=47) Vancomycin (test code=13) GRAM STAIN RESULT (BEAKER) (test eanc=6274) <1+ WBCs GRAM STAIN RESULT (BEAKER) (test wnyt=285197) <1+ gram positive cocci in pairs GRAM STAIN RESULT (BEAKER) (test iugm=131638) <1+ gram positive coccobacilli 2+ Skin floraANAEROBIC [id number] 13:40:00* Test Item Value Reference Range Comments CULTURE (BEAKER) (test yofg=7572) No anaerobes isolated RAD, HIP, 2 VIEWS, [id number] 16:52:00Reason for Exam:->draining wound on the left thigh, on suture line of previous surgery Location->[facility] FINAL REPORT Left hip dated January 04, 2017 Comment: 2 v iews of the left hip were submitted for interpretation. There is resorption of t he left femoral head and neck. Marked dystrophic calcification seen in the left hip. There is remodeling of the left acetabulum. Signed: Ruby Giron MDReport Ve rified Date/Time: 01/04/2017 16:52:19 Reading Location: [facility] B1 C013W Consult Re ading Room ROBIC [id number] 12:27:00* Test Item Value Reference Range Comments CULTURE (BEAKER) (test ssuw=9364) No anaerobes isolated WOUND CULTURE + GRAM [id number] 10:32:00* Test Item Value Reference Range Comments CULTURE (BEAKER) (test fwmh=6597) No growth GRAM STAIN RESULT (BEAKER) (test uiae=4019) 2+ WBCs GRAM STAIN RESULT (BEAKER) (test eyju=69317) No organisms seen BLOOD [id number] 18:00:00* Test Item Value Reference Range Comments CULTURE (BEAKER) (test vxox=2845) No growth in 5 days BLOOD [id number] 18:00:00* Test Item Value Reference Range Comments CULTURE (BEAKER) (test mwao=9380) No growth in 5 days CBC W/PLT COUNT & AUTO [id number] 07:16:00* Test Item Value Reference Range Comments WHITE BLOOD CELL COUNT (BEAKER) (test uhbe=528) 13.8 K/ L 3.5-10.5 RED BLOOD CELL COUNT (BEAKER) (test hbow=487) 3.51 M/ L 4.63-6.08 HEMOGLOBIN (BEAKER) (test kjdu=981) 10.2 GM/DL 13.7-17.5 HEMATOCRIT (BEAKER) (test zwut=572) 32.8 % 40.1-51.0 MEAN CORPUSCULAR VOLUME (BEAKER) (test ldxe=191) 93.4 fL 79.0-92.2 MEAN CORPUSCULAR HEMOGLOBIN (BEAKER) (test wxac=178) 29.1 pg 25.7-32.2 MEAN CORPUSCULAR HEMOGLOBIN CONC (BEAKER) (test oecg=562) 31.1 GM/DL 32.3-36.5 RED CELL DISTRIBUTION WIDTH (BEAKER) (test atgj=094) 16.3 % 11.6-14.4 PLATELET COUNT (BEAKER) (test dywp=905) 336 K/CU MM 150-450 MEAN PLATELET VOLUME (BEAKER) (test rjtv=782) 9.7 fL 9.4-12.4 NUCLEATED RED BLOOD CELLS (BEAKER) (test rmru=604) 0 /100 WBC 0-0 NEUTROPHILS RELATIVE PERCENT (BEAKER) (test nykd=793) 78 % LYMPHOCYTES RELATIVE PERCENT (BEAKER) (test dbue=966) 13 % MONOCYTES RELATIVE PERCENT (BEAKER) (test wxqa=952) 7 % EOSINOPHILS RELATIVE PERCENT (BEAKER) (test qltc=115) 1 % BASOPHILS RELATIVE PERCENT (BEAKER) (test nlcv=846) 0 % NEUTROPHILS ABSOLUTE COUNT (BEAKER) (test debm=315) 10.70 K/ L 1.78-5.38 LYMPHOCYTES ABSOLUTE COUNT (BEAKER) (test dxpm=291) 1.78 K/ L 1.32-3.57 MONOCYTES ABSOLUTE COUNT (BEAKER) (test zhpm=121) 0.95 K/ L 0.30-0.82 EOSINOPHILS ABSOLUTE COUNT (BEAKER) (test hioh=537) 0.16 K/ L 0.04-0.54 BASOPHILS ABSOLUTE COUNT (BEAKER) (test vluo=607) 0.03 K/ L 0.01-0.08 IMMATURE GRANULOCYTES-RELATIVE PERCENT (BEAKER) (test ehoj=0031) 1 % 0-1 BASIC METABOLIC [id number] 06:38:00* Test Item Value Reference Range Comments SODIUM (BEAKER) (test egdp=093) 136 meq/L 136-145 POTASSIUM (BEAKER) (test lwau=472) 3.7 meq/L 3.5-5.1 CHLORIDE (BEAKER) (test krqp=838) 107 meq/L 98-107 CO2 (BEAKER) (test hkgu=994) 20 meq/L 22-29 BLOOD UREA NITROGEN (BEAKER) (test iglo=597) 15 mg/dL 7-21 CREATININE (BEAKER) (test giim=506) 1.22 mg/dL 0.57-1.25 GLUCOSE RANDOM (BEAKER) (test kghq=574) 92 mg/dL 70-105 CALCIUM (BEAKER) (test ejov=748) 8.9 mg/dL 8.4-10.2 EGFR (BEAKER) (test eqto=2410) 76 mL/min/1.73 sq m ESTIMATED GFR IS NOT ACCURATE CREATININE CLEARANCE IN PREDICTING GLOMERULAR FILTRATION RATE. ESTIMATED GFR IS NOT APPLICABLE FOR DIALYSIS PATIENTS. URINE [id number] 12:37:00* Test Item Value Reference Range Comments CULTURE (BEAKER) (test fsaf=7045) Clindamycin (test code=10) Erythromycin (test code=4) Linezolid (test code=40) Nitrofurantoin (test code=23) Oxacillin (test code=14) Rifampin (test code=43) Tetracycline (test code=2) Trimethoprim + Sulfamethoxazole (test code=47) Vancomycin (test code=13) CULTURE (BEAKER) (test yuyl=5431) >100,000 col/mL Methicillin resistant Staphylococcus aureus >100,000 col/mL enteric organisms of >2 types. No further workup performed. Multiple organisms suggestive of colonization or contamination. Repeat collection recommended.CBC (HEMOGRAM ONLY)2016-12-02 08:17:00* Test Item Value Reference Range Comments WHITE BLOOD CELL COUNT (BEAKER) (test jcfz=491) 12.5 K/ L 3.5-10.5 RED BLOOD CELL COUNT (BEAKER) (test tzsc=755) 3.52 M/ L 4.63-6.08 HEMOGLOBIN (BEAKER) (test ysvu=741) 10.2 GM/DL 13.7-17.5 HEMATOCRIT (BEAKER) (test cpnm=221) 32.7 % 40.1-51.0 MEAN CORPUSCULAR VOLUME (BEAKER) (test ktue=494) 92.9 fL 79.0-92.2 MEAN CORPUSCULAR HEMOGLOBIN (BEAKER) (test bsvu=323) 29.0 pg 25.7-32.2 MEAN CORPUSCULAR HEMOGLOBIN CONC (BEAKER) (test kptv=153) 31.2 GM/DL 32.3-36.5 RED CELL DISTRIBUTION WIDTH (BEAKER) (test icyw=354) 16.2 % 11.6-14.4 PLATELET COUNT (BEAKER) (test vzay=681) 317 K/CU MM 150-450 MEAN PLATELET VOLUME (BEAKER) (test yflm=245) 9.6 fL 9.4-12.4 NUCLEATED RED BLOOD CELLS (BEAKER) (test holu=924) 0 /100 WBC 0-0 BASIC METABOLIC [id number] 07:16:00* Test Item Value Reference Range Comments SODIUM (BEAKER) (test wyqx=874) 137 meq/L 136-145 POTASSIUM (BEAKER) (test asti=342) 3.5 meq/L 3.5-5.1 CHLORIDE (BEAKER) (test wlwi=852) 107 meq/L 98-107 CO2 (BEAKER) (test dwrh=948) 20 meq/L 22-29 BLOOD UREA NITROGEN (BEAKER) (test yons=800) 15 mg/dL 7-21 CREATININE (BEAKER) (test yajo=038) 1.20 mg/dL 0.57-1.25 GLUCOSE RANDOM (BEAKER) (test wdnn=447) 99 mg/dL 70-105 CALCIUM (BEAKER) (test lglq=301) 8.8 mg/dL 8.4-10.2 EGFR (BEAKER) (test tbnb=7579) 77 mL/min/1.73 sq m ESTIMATED GFR IS NOT ACCURATE CREATININE CLEARANCE IN PREDICTING GLOMERULAR FILTRATION RATE. ESTIMATED GFR IS NOT APPLICABLE FOR DIALYSIS PATIENTS. BASIC METABOLIC [id number] 16:06:00* Test Item Value Reference Range Comments SODIUM (BEAKER) (test glfc=189) 135 meq/L 136-145 POTASSIUM (BEAKER) (test hmdw=090) 4.1 meq/L 3.5-5.1 Specimen moderately hemolyzed CHLORIDE (BEAKER) (test dcct=170) 112 meq/L 98-107 CO2 (BEAKER) (test flhr=865) 15 meq/L 22-29 BLOOD UREA NITROGEN (BEAKER) (test tyab=931) 11 mg/dL 7-21 CREATININE (BEAKER) (test tich=859) 1.15 mg/dL 0.57-1.25 Specimen moderately hemolyzed GLUCOSE RANDOM (BEAKER) (test tpzp=649) 102 mg/dL 70-105 CALCIUM (BEAKER) (test gkta=129) 8.3 mg/dL 8.4-10.2 EGFR (BEAKER) (test srzj=3932) 81 mL/min/1.73 sq m ESTIMATED GFR IS NOT ACCURATE CREATININE CLEARANCE IN PREDICTING GLOMERULAR FILTRATION RATE. ESTIMATED GFR IS NOT APPLICABLE FOR DIALYSIS PATIENTS. CLOSTRIDIUM DIFFICILE TOXIN [id number] 10:44:00* Test Item Value Reference Range Comments CLOSTRIDIUM DIFFICILE TOXIN, PCR (BEAKER) (test qljd=6270) Not Detected Not Detected This qualitative real-time polymerase chain reaction assay detects the tcdB gene , encoded on the C.difficile pathogenicity locus (PaLoc). The product of tcdB, toxin B, is a cytotoxin essential for causing C.difficile-associated disease (CD AD) and is found in virtually all toxigenic C.difficile.This assay is performed for patients suspected of having either community-acquired or nosocomial CDAD. Accordingly, only symptomatic patients should be tested and formed stools will b e rejected unless ileus is present (i.e., specified when ordering). Patients ma y be colonized with toxigenic C.difficile strains not causing active disease; th erefore, clinical correlation is needed when deciding how to manage patients wit h a positive test result.The assay has not been validated as a test of cure as a mplifiable nucleic acid may persist after effective treatment; therefore, follow -up testing of a positive result is not recommended.KIDNEY IMAGING, SINGLE, FLOW/FUNCTION W/ [id number] 16:48:00FINAL REPORT PROCEDURE: Functional RENAL SCAN with Diuretic Stimulation CPT CODE: 44195 INDICATION: Hydronephrosis, suspected UPJ obstruction PROTOCOL: 10.4 mCi of Tc-99m MAG3 was injected intravenously. Renal flow images were obtained in the posterior projection, subsequent serial posterior images were obtained over 30 minutes. 40 mg of furosemide was injected intravenously, 11 minutes after tracer injection. FINDINGS: There is prompt and symmetric perfusion of the kidneys. Initial renal activity is divided 50% to the left kidney and 50% to the right kidney. Subsequent images show appropriate tracer appearance in the calyces and renal pelves. Following diuretic injection, there is symmetric, mildly delayed tracer washout from the renal collecting systems. Half-emptying times were 23 minutes past peak activity on the left and 20 minutes on the right. IMPRESSION: 1. Bilateral mild hydronephrosis.2. Response to diuretic stimulation is mildly increased. Overall the study is suspicious but not definitive for the presence of UPJ obstruction. i.e. the mild delay in washout could be explained by pelvic dilatation alone but low-grade partial UPJ obstruction can not be excluded. Signed: Zaina Galloway MDReport Verified Date/Time: 11/30/2016 16:48:41 Reading Location: [address] Reading Room REHENSIVE METABOLIC [id number] 06:44:00* Test Item Value Reference Range Comments TOTAL PROTEIN (BEAKER) (test gfzm=697) 7.8 gm/dL 6.0-8.3 ALBUMIN (BEAKER) (test tqxh=4572) 2.5 g/dL 3.5-5.0 ALKALINE PHOSPHATASE (BEAKER) (test nnls=233) 188 U/L 40-150 BILIRUBIN TOTAL (BEAKER) (test clyc=157) 0.4 mg/dL 0.2-1.2 SODIUM (BEAKER) (test qccq=293) 135 meq/L 136-145 POTASSIUM (BEAKER) (test lthl=824) 3.4 meq/L 3.5-5.1 CHLORIDE (BEAKER) (test oijx=781) 110 meq/L 98-107 CO2 (BEAKER) (test qwsv=965) 18 meq/L 22-29 BLOOD UREA NITROGEN (BEAKER) (test kmko=704) 13 mg/dL 7-21 CREATININE (BEAKER) (test mzca=539) 1.09 mg/dL 0.57-1.25 GLUCOSE RANDOM (BEAKER) (test mduc=134) 96 mg/dL 70-105 CALCIUM (BEAKER) (test sqvb=308) 8.3 mg/dL 8.4-10.2 AST (SGOT) (BEAKER) (test feut=758) 26 U/L 5-34 ALT (SGPT) (BEAKER) (test klkt=483) 25 U/L 6-55 EGFR (BEAKER) (test bmdi=4088) 86 mL/min/1.73 sq m ESTIMATED GFR IS NOT ACCURATE CREATININE CLEARANCE IN PREDICTING GLOMERULAR FILTRATION RATE. ESTIMATED GFR IS NOT APPLICABLE FOR DIALYSIS PATIENTS. CBC (HEMOGRAM ONLY)2016-11-30 06:25:00* Test Item Value Reference Range Comments WHITE BLOOD CELL COUNT (BEAKER) (test rict=225) 9.3 K/ L 3.5-10.5 RED BLOOD CELL COUNT (BEAKER) (test hloc=612) 3.24 M/ L 4.63-6.08 HEMOGLOBIN (BEAKER) (test qkcx=775) 9.4 GM/DL 13.7-17.5 HEMATOCRIT (BEAKER) (test zpaj=455) 30.7 % 40.1-51.0 MEAN CORPUSCULAR VOLUME (BEAKER) (test ilpl=330) 94.8 fL 79.0-92.2 MEAN CORPUSCULAR HEMOGLOBIN (BEAKER) (test kzzh=514) 29.0 pg 25.7-32.2 MEAN CORPUSCULAR HEMOGLOBIN CONC (BEAKER) (test yxhx=853) 30.6 GM/DL 32.3-36.5 RED CELL DISTRIBUTION WIDTH (BEAKER) (test ygxp=813) 16.4 % 11.6-14.4 PLATELET COUNT (BEAKER) (test maal=832) 263 K/CU MM 150-450 MEAN PLATELET VOLUME (BEAKER) (test saee=934) 8.9 fL 9.4-12.4 NUCLEATED RED BLOOD CELLS (BEAKER) (test okex=167) 0 /100 WBC 0-0 CBC W/PLT COUNT & AUTO [id number] 11:12:00* Test Item Value Reference Range Comments WHITE BLOOD CELL COUNT (BEAKER) (test aqjw=211) 9.0 K/ L 3.5-10.5 RED BLOOD CELL COUNT (BEAKER) (test hgpy=066) 3.19 M/ L 4.63-6.08 HEMOGLOBIN (BEAKER) (test ljuh=825) 9.5 GM/DL 13.7-17.5 HEMATOCRIT (BEAKER) (test pknf=814) 29.8 % 40.1-51.0 MEAN CORPUSCULAR VOLUME (BEAKER) (test ofwk=544) 93.4 fL 79.0-92.2 MEAN CORPUSCULAR HEMOGLOBIN (BEAKER) (test okko=199) 29.8 pg 25.7-32.2 MEAN CORPUSCULAR HEMOGLOBIN CONC (BEAKER) (test zgyj=028) 31.9 GM/DL 32.3-36.5 RED CELL DISTRIBUTION WIDTH (BEAKER) (test mxcz=368) 16.1 % 11.6-14.4 PLATELET COUNT (BEAKER) (test zpoe=506) 249 K/CU MM 150-450 MEAN PLATELET VOLUME (BEAKER) (test ecox=874) 9.1 fL 9.4-12.4 NUCLEATED RED BLOOD CELLS (BEAKER) (test heuw=645) 0 /100 WBC 0-0 NEUTROPHILS RELATIVE PERCENT (BEAKER) (test dbcx=721) 86 % LYMPHOCYTES RELATIVE PERCENT (BEAKER) (test fmfj=127) 9 % MONOCYTES RELATIVE PERCENT (BEAKER) (test iovw=071) 4 % EOSINOPHILS RELATIVE PERCENT (BEAKER) (test jpxx=292) 0 % BASOPHILS RELATIVE PERCENT (BEAKER) (test qxfo=945) 0 % NEUTROPHILS ABSOLUTE COUNT (BEAKER) (test jyyc=196) 7.79 K/ L 1.78-5.38 LYMPHOCYTES ABSOLUTE COUNT (BEAKER) (test korz=809) 0.77 K/ L 1.32-3.57 MONOCYTES ABSOLUTE COUNT (BEAKER) (test rolh=304) 0.39 K/ L 0.30-0.82 EOSINOPHILS ABSOLUTE COUNT (BEAKER) (test ksui=225) 0.01 K/ L 0.04-0.54 BASOPHILS ABSOLUTE COUNT (BEAKER) (test wtha=190) 0.01 K/ L 0.01-0.08 IMMATURE GRANULOCYTES-RELATIVE PERCENT (BEAKER) (test xsgb=9780) 1 % 0-1 (MANUAL DIFFERENTIAL)2016-11-29 11:12:00* Test Item Value Reference Range Comments TOTAL COUNTED (BEAKER) (test wfzl=1765) WBC MORPHOLOGY (BEAKER) (test lbnw=351) Normal PLT MORPHOLOGY (BEAKER) (test hoga=785) Normal ANISOCYTOSIS (BEAKER) (test tgmi=922) 1+ few MACROCYTES (BEAKER) (test cuzm=365) 1+ few [id number] 05:48:00* Test Item Value Reference Range Comments MAGNESIUM (BEAKER) (test omfz=935) 1.6 mg/dL 1.6-2.6 BASIC METABOLIC [id number] 05:48:00* Test Item Value Reference Range Comments SODIUM (BEAKER) (test lmjj=365) 137 meq/L 136-145 POTASSIUM (BEAKER) (test gjxx=793) 3.6 meq/L 3.5-5.1 CHLORIDE (BEAKER) (test asyf=182) 112 meq/L 98-107 CO2 (BEAKER) (test rdbd=617) 18 meq/L 22-29 BLOOD UREA NITROGEN (BEAKER) (test qgki=789) 18 mg/dL 7-21 CREATININE (BEAKER) (test oxoj=168) 1.26 mg/dL 0.57-1.25 GLUCOSE RANDOM (BEAKER) (test sorg=422) 100 mg/dL 70-105 CALCIUM (BEAKER) (test hjdh=529) 8.1 mg/dL 8.4-10.2 EGFR (BEAKER) (test ulru=7764) 73 mL/min/1.73 sq m ESTIMATED GFR IS NOT ACCURATE CREATININE CLEARANCE IN PREDICTING GLOMERULAR FILTRATION RATE. ESTIMATED GFR IS NOT APPLICABLE FOR DIALYSIS PATIENTS. CT, [id number] 17:55:00Reason for exam:->sepsis, likely pyeloFINAL REPORT INDICATION:51-year-old male with abdominal pain. Evaluate for pyelonephritis. COMPARISON: Abdomen pelvis CT exam October 31, 2013Pelvis MRI exam September 17, 2016 TECHNIQUE: CT of the Abdomen and Pelvis WITHOUT intravenous contrast. Enteric contrast was not used. The exam was performed according to our department dose-optimization protocol, which includes automated exposure control, adjustments of mA and kV according to patient size. Iterative r econstructions are also sometimes employed. FINDINGS:There is mild hydronephrosi s of the right and left kidneys and there is also mild upper hydroureter of the right and left ureters. Both ureters abruptly narrow at the upper third. No obst ructing mass or urinary stone is present. No renal swelling or perinephric stran ding is demonstrated. Pyelonephritis is better assessed with the benefit of intr avenous contrast. There is a suprapubic catheter in the bladder and there is dif fuse gallbladder wall thickening. No stranding around the bladder is demonstrate d. Prostate gland is normal in size. There is a mildly enlarged left external il iac lymph node (1.5 cm short axis) and there are several prominent left inguinal lymph nodes. No retroperitoneal lymphadenopathy. Adrenal glands are unremarkabl e. Liver, pancreas, and spleen are unremarkable. Patient is status post cholecys tectomy. There is no biliary ductal dilatation. No upper abdominal lymphadenopat hy is demonstrated. No evidence of bowel obstruction or infection. Patient is st atus post partial colectomy with a Cosme's pouch and left lower quadrant end c olostomy. Appendix is prominent but there is no periappendiceal stranding. No pe ritoneal free fluid or pneumoperitoneum is demonstrated. There is a stent in the distal abdominal aorta extending into the right common femoral and external agnes ac arteries. No significant atherosclerotic plaque is present in the abdominal a elpidio or iliac arteries. The left common iliac vein appears atretic. Again demons trated are chronic appearing destructive changes of both hips, with the right hi p demonstrating chronic fracture subluxation of the femoral neck and left hip st atus post head and neck resection. There is moderate amount of fluid at the left femoral remnant that is contiguous with a track going through the posterior fat to the skin surface suspicious for a draining sinus tract. This was also demons trated on prior MRI examination March 2016. There are also changes of chronic osteomyelitis of the sacrum and lower lumbar vertebral column. Posterior lumbar fusion hardware is also noted. IMPRESSION: No renal swelling or perinephric stra nding that would indicate kidney infection. Sensitivity is markedly decreased in the absence of intravenous contrast. Mild hydronephrosis and upper hydroureter of both kidneys. No urolithiasis and no obstructing lesion demonstrated. Given a brupt narrowing at the upper third of both ureters, ureteral strictures are cons idered. Suprapubic bladder catheter in good position with nonspecific diffuse bl adder wall thickening. No stranding around the bladder. Prior partial colon rese ction and left lower quadrant colostomy. No evidence of acute bowel abnormality. Narrowed or atretic left external iliac vein. Mildly enlarged left external agnes ac lymph node and prominent left inguinal lymph nodes, likely related to venous obstruction. Stent in the distal abdominal aorta extending into the right silviculture professor al iliac artery. Stent patency not assessed in the absence of intravenous contra st. 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 Signed: Minor Cornelius MDReport Verified Date/Time: 11/28/2016 17:55:55 Reading Loca tion: [facility] B1 C013W Consult Reading Room -LACTIC ACID, [id number] 16:53:00* Test Item Value Reference Range Comments POC-LACTIC ACID, VENOUS (BEAKER) (test gwxq=3814) 0.4 mmol/L 0.9-1.[address] [facility] [address] [facility] [address] CBC W/PLT COUNT & AUTO [id number] 14:51:00* Test Item Value Reference Range Comments WHITE BLOOD CELL COUNT (BEAKER) (test hlan=907) 13.6 K/ L 3.5-10.5 RED BLOOD CELL COUNT (BEAKER) (test hqif=712) 3.77 M/ L 4.63-6.08 HEMOGLOBIN (BEAKER) (test cehh=556) 11.2 GM/DL 13.7-17.5 HEMATOCRIT (BEAKER) (test euzt=359) 35.7 % 40.1-51.0 MEAN CORPUSCULAR VOLUME (BEAKER) (test gafc=210) 94.7 fL 79.0-92.2 MEAN CORPUSCULAR HEMOGLOBIN (BEAKER) (test xiqc=126) 29.7 pg 25.7-32.2 MEAN CORPUSCULAR HEMOGLOBIN CONC (BEAKER) (test nhzp=644) 31.4 GM/DL 32.3-36.5 RED CELL DISTRIBUTION WIDTH (BEAKER) (test wtfc=482) 16.2 % 11.6-14.4 PLATELET COUNT (BEAKER) (test dber=375) 341 K/CU MM 150-450 MEAN PLATELET VOLUME (BEAKER) (test jysp=754) 9.2 fL 9.4-12.4 NUCLEATED RED BLOOD CELLS (BEAKER) (test nbqz=507) 0 /100 WBC 0-0 IMMATURE GRANULOCYTES-RELATIVE PERCENT (BEAKER) (test khcy=8571) 1 % 0-1 (MANUAL DIFFERENTIAL)2016-11-28 14:51:00* Test Item Value Reference Range Comments NEUTROPHILS - REL (DIFF) (BEAKER) (test novl=5789) 89 % LYMPHOCYTES - REL (DIFF) (BEAKER) (test chmr=5151) 7 % MONOCYTES - REL (DIFF) (BEAKER) (test dfbb=1436) 2 % BANDS - REL (DIFF) (BEAKER) (test drcl=1195) 2 % 0-10 NEUTROPHILS - ABS (DIFF) (BEAKER) (test iysh=0053) 12.10 K/ L 1.80-8.00 LYMPHOCYTES - ABS (DIFF) (BEAKER) (test xwoi=4970) 0.95 K/ L 1.48-4.50 MONOCYTES - ABS (DIFF) (BEAKER) (test kuig=7003) 0.27 K/ L 0.00-1.30 BANDS-ABS (DIFF) (BEAKER) (test qbyx=9282) 0.3 K/ L 0.0-0.8 TOTAL COUNTED (BEAKER) (test yhfr=2639) 100 BANDS + SEGMENTED NEUTROPHILS (BEAKER) (test nvib=0390) 12.38 WBC MORPHOLOGY (BEAKER) (test uidh=297) Normal PLT MORPHOLOGY (BEAKER) (test wdbj=409) Normal POIKILOCYTES (BEAKER) (test nfdd=827) 1+ few SPHEROCYTES (BEAKER) (test lmcf=790) 1+ few RAD, CHEST, 1 VIEW, NON [id number] 14:43:00Reason for exam:->FEVERReason for exam:->SHORTNESS OF BREATHReason for exam:->BACK PAINReason for exam:->ABDOMINAL PAINReason for exam:->DIARRHEAShould this be performed at the bedside?->YesFINAL REPORT AP chest HISTORY: Fever COMPARISON: 03/21/2016 IMPRESSION:Lungs are inflated. Heart size normal. Perihilar and lower lobe int erstitial opacities may reflect edema or pneumonitis. No large effusion. No pneu mothorax. Signed: Yudi Luciano MDReport Verified Date/Time: 11/28/2016 14:43 :45 Reading Location: [facility] Reading Room ALYSIS W/ MICROSCOPIC 2016-11-28 14:29:00* Test Item Value Reference Range Comments COLOR (BEAKER) (test njqn=554) Yellow CLARITY (BEAKER) (test axxd=324) Cloudy SPECIFIC GRAVITY UA (BEAKER) (test awde=351) 1.013 1.001-1.035 PH UA (BEAKER) (test lovw=806) 8.0 5.0-8.0 PROTEIN UA (BEAKER) (test tkge=989) 600 mg/dL Negative GLUCOSE UA (BEAKER) (test xaxo=982) 30 mg/dL Negative KETONES UA (BEAKER) (test gvfp=031) Negative Negative BILIRUBIN UA (BEAKER) (test hozt=209) Negative Negative BLOOD UA (BEAKER) (test tumz=467) Trace Negative NITRITE UA (BEAKER) (test sznc=776) Negative Negative LEUKOCYTE ESTERASE UA (BEAKER) (test hdeo=361) Large Negative UROBILINOGEN UA (BEAKER) (test fwfb=317) 0.2 mg/dL 0.2-1.0 RBC UA (BEAKER) (test omdd=109) 0 /HPF WBC UA (BEAKER) (test utcp=240) 14 /HPF BACTERIA (BEAKER) (test gmfc=537) Many MUCUS (BEAKER) (test rvbp=0252) Rare SQUAMOUS EPITHELIAL (BEAKER) (test peub=707) 1 /HPF AMORPHOUS CRYSTALS (BEAKER) (test uxgq=4875) Rare YEAST (BEAKER) (test zunr=8627) Many SOURCE(BEAKER) (test evvx=1360) Urine, Lewis HEPATIC FUNCTION [id number] 14:12:00* Test Item Value Reference Range Comments TOTAL PROTEIN (BEAKER) (test scph=821) 9.4 gm/dL 6.0-8.3 ALBUMIN (BEAKER) (test qole=0927) 3.2 g/dL 3.5-5.0 BILIRUBIN TOTAL (BEAKER) (test qskm=647) 0.7 mg/dL 0.2-1.2 BILIRUBIN DIRECT (BEAKER) (test hwbu=308) 0.4 mg/dL 0.1-0.5 ALKALINE PHOSPHATASE (BEAKER) (test pkjp=863) 265 U/L 40-150 AST (SGOT) (BEAKER) (test pgtt=630) 55 U/L 5-34 ALT (SGPT) (BEAKER) (test lmze=614) 35 U/L 6-55 BASIC METABOLIC [id number] 14:12:00* Test Item Value Reference Range Comments SODIUM (BEAKER) (test cnkl=907) 134 meq/L 136-145 POTASSIUM (BEAKER) (test munr=802) 3.8 meq/L 3.5-5.1 CHLORIDE (BEAKER) (test lofx=061) 104 meq/L 98-107 CO2 (BEAKER) (test tmpg=982) 21 meq/L 22-29 BLOOD UREA NITROGEN (BEAKER) (test cxku=822) 24 mg/dL 7-21 CREATININE (BEAKER) (test yexb=083) 1.54 mg/dL 0.57-1.25 GLUCOSE RANDOM (BEAKER) (test excv=179) 121 mg/dL 70-105 CALCIUM (BEAKER) (test bzuz=623) 8.9 mg/dL 8.4-10.2 EGFR (BEAKER) (test qoea=6326) 58 mL/min/1.73 sq m ESTIMATED GFR IS NOT ACCURATE CREATININE CLEARANCE IN PREDICTING GLOMERULAR FILTRATION RATE. ESTIMATED GFR IS NOT APPLICABLE FOR DIALYSIS PATIENTS. POCT-LACTIC ACID, [id number] 13:48:00* Test Item Value Reference Range Comments POC-LACTIC ACID, VENOUS (BEAKER) (test kmvt=0681) 2.4 mmol/L 0.9-1.7 TESTED AT [address] [address] AFB CULTURE + [id number] 19:31:00* Test Item Value Reference Range Comments CULTURE (BEAKER) (test ykhc=6297) No acid-fast bacilli isolated in 42 days AFB SMEAR (BEAKER) (test wvbg=889) No acid fast bacilli seen AFB CULTURE + [id number] 19:31:00* Test Item Value Reference Range Comments CULTURE (BEAKER) (test lwcg=8855) No acid-fast bacilli isolated in 42 days AFB SMEAR (BEAKER) (test fhtt=970) No acid fast bacilli seen AFB CULTURE + [id number] 19:31:00* Test Item Value Reference Range Comments CULTURE (BEAKER) (test lyjz=1002) No acid-fast bacilli isolated in 42 days AFB SMEAR (BEAKER) (test swpe=880) No acid fast bacilli seen AFB CULTURE + [id number] 19:31:00* Test Item Value Reference Range Comments CULTURE (BEAKER) (test imgm=9180) No acid-fast bacilli isolated in 42 days AFB SMEAR (BEAKER) (test mfdm=423) No acid fast bacilli seen AFB CULTURE + [id number] 19:31:00* Test Item Value Reference Range Comments CULTURE (BEAKER) (test qmts=9030) No acid-fast bacilli isolated in 42 days AFB SMEAR (BEAKER) (test qonn=003) No acid fast bacilli seen
--- OUTSIDE RECORDS SUMMARY | 2018-07-24 06:50 | XMS REPORT | Summary of Care ---
Author Author Amairani Gómez Organization Unknown Address [facility] Phone Unavailable Care Team Providers Care Customs Verifier Name Role Phone Amairani Gómez Unavailable Unavailable Functional Status Name Dates Details Functional status health issues are not documented Status: Name Dates Details Cognitive status health issues are not documented Status: Problems Name Dates Details Displaced spiral fracture of shaft of left femur, initial encounter for open fracture type IIIA, IIIB, or IIIC (821.11, S72.888L) Status: Active Medications Name Dates Details Medications not documented Allergies and Adverse Reactions Name Dates Details Allergy history not documented Status: Procedures Procedure Dates Details Procedures not documented Immunization Name Dates Details Immunizations not documented Social History Name Dates Details Unknown if ever smoked Vital Signs Date Test Result Details No Known Vitals to report Results Date Description Value Details Results not documented Plan of Care Name Dates Details Planned Observations Planned Goals not documented Instructions Name Dates Details Instructions not documented Encounters Appointment; AMADA CEJA M.D. Encounter Diagnosis: Problem not documented On: 04-Apr-2017 8:45 Appointment; AMADA CEJA M.D. Encounter Diagnosis: Problem not documented On: 18-Apr-2017 8:30
--- NOTE | 2018-07-24 09:30 | NUR ---
0930am reach out to Floreshudson [phone]) regarding d/c transportation needs via phone; asked to return phone call. Pt was requested to have rider with him for non medical certified nurses' aide on his call card per Ana Gupta (Pre-procedural assessment nurse) Non noted here in waiting areas. Will re-assess later. mikala/rn
--- NOTE | 2018-07-24 10:00 | NUR ---
1000 received pt in rm #9 s/p 5fr Left tunnel pro-line venous access(single lumen PICC) inserted by Dr Feliz,For osteomyelitis dx requiring antibiotic infusion. Ok'd to use per Radiologist.Pt is back to baseline orientation, aware of importance of f/o care .Has copies if dc plans and called pt transport for pickup. Haley /pt significant other here, for ride with transport .Left sc line area dry and intact no signs bleeding. No gross issues pain,pallor,pressure or site intact or dysrhythmia.Abdomen soft and non tender ,Colostomy bag intact with supra pubic bag drained cloudy drainage. Intact site w/o s/s infiltration. Discharge plans completed awaiting ride mikala/matthew
--- NOTE | 2018-07-24 10:00 | NUR ---
1000 Received pt from medical lab technician. Identiferx2 Handoff by Matthew Baldwin. Back to baseline orientation.Resp shallow and regular 100% room air.Monitor SR-ST.Abdomen soft and non tender denies necessity for colostomy bag empty. Bm stool soft and minimal in bag. Suprapubic tube in place to BSD cloudy, empty 250cc. Lt ij PICC placed with Radiologist Dr Feliz. to dc in 30min. Discharge plan of care discussed with Haley (significant other)Copies of POC and PICC card given to pt. Discussed importance of f/o care with Dr Rahul Durham ([place] ordering /[phone]) Rt ABK amputee Left hand iv w/o s/s infiltration(IV clamped off)pt hx ESRD. Gross gross issues pain,pallor,pressure or bleeding ,no dysrhythmia.left sc/ij dressing intact. mikala/matthew
--- NOTE | 2018-07-24 11:15 | NUR ---
1115 discharged to home stable vs and ekg no gross issues with pain pallor pressure or dysrhythmia. Back to baseline orientation and iv removed with intact dressing. Transportation here denies c/o.per wc with all belongings and friend escort with [facility] Persaud. mikala/rn
--- NOTE | 2018-07-29 11:53 | Diagnostic Imaging Report ---
Date and Time: 07/24/2018 Procedure: Left internal jugular tunneled central venous catheter placement finishing pan operator: Dr. Feliz Pre-operative diagnosis: Osteomyelitis, need for central venous access Post-operative diagnosis: Osteomyelitis, chronically occluded right internal jugular vein Conscious Sedation: Versed 1.5 mg and Fentanyl 50 mcg. The patient's heart rate and pulse oximetry were continuously monitored by the interventional radiology nurse. Blood pressure was monitored at 5 minute intervals. Total monitored sedation time: 45 minutes Additional Medications: Lidocaine 1% for local anesthesia Fluoroscopy time: 6.3 minutes Dose-area Product: 1864.7 cGycm2. Contrast used: None Estimated blood loss: Less than 10 cc Blood products administered: None Complications: No immediate Specimens: None Implants: 5 Somali single lumen cuffed central venous catheter Condition at completion: Stable Disposition: Catheter lab holding DISCUSSION: Informed consent was obtained and documented in the medical record. The patient was noted to have extensive scarring on the bilateral upper chest wall, and stated he has had multiple prior tunneled catheters and central venous port catheters on each side of his neck and chest. Preliminary sonographic evaluation showed a chronically occluded right internal jugular vein and a patent, though diminutive left internal jugular vein. The patient was placed in the supine position on the angiographic table. The left neck and upper chest were prepped and draped in standard sterile fashion. 1% lidocaine was infiltrated into the skin and subcutaneous tissues for local anesthesia. Then under continuous sonographic guidance a 21-gauge micropuncture needle was used to access the left internal jugular vein. A permanent sonographic image was stored in the medical record. A 0.0 1 8-in. wire was advanced centrally and initiated into the right atrium under fluoroscopic guidance. The needle was exchanged for a 5 Somali micropuncture sheath and external length of the wire was measured, with the tip positioned at the superior cavoatrial junction. The wire was then advanced into the right atrium with continuous cardiac rhythm monitoring. Attention was then turned to creation of a subcutaneous tunnel on the left upper chest. A suitable catheter exit site approximately 3 fingerbreadths below the clavicle was identified and marked. 1% lidocaine was infiltrated into the skin and subcutaneous tissues for local anesthesia from the planned catheter exit site to the venotomy at the left lower neck. A small stab incision was made. The 5 Somali catheter was then tunneled from the planned exit site to the venotomy, placing the retention cuff into the tunnel by approximately 1 cm. The micropuncture sheath was then exchanged for a 6 Somali peel-away sheath, which was advanced over the wire. The wire and cannula were then removed and the catheter was advanced through the peel-away sheath. There was difficulty in advancing the catheter central to the level of the left brachiocephalic vein. Therefore, the wire was reintroduced through the catheter and directed into the SVC and then the right atrium. The catheter was slowly advanced over the wire, while the external loop protruding from the peel-away sheath was reduced. The peel-away sheath was broken and removed and the catheter was then gently advanced over the wire to the superior cavoatrial junction. The wire was removed. The catheter showed adequate bidirectional flow and was flushed with sterile saline. The catheter was secured to the skin with monofilament nylon suture and a sterile dressing was applied. The venotomy at the left lower neck was closed with tissue adhesive and a sterile dressing. The patient tolerated the procedure well without immediate complication. FINDINGS: Chronically occluded right internal jugular vein. Patent left internal jugular vein. IMPRESSION: Technically difficult though successful placement of a 5 Somali single lumen tunneled central venous catheter by a left internal jugular approach. Signed by: Dr. Yossi Feliz M.D. on 07/24/2018 3:52 PM
== END | disposition home or self-care (01) ==
LOC: CATH LAB 06:46 → EDSTATUS 08:00
PROVIDERS: ATTEND Radiology Diagnostic Radiology
DX: M86.352 Chronic multifocal osteomyelitis, left femur (principal); I82.C21 Chronic embolism and thrombosis of right internal jugular vein; R69 Illness, unspecified; Z89.611 Acquired absence of right leg above knee
CPT/HCPCS: 36558; C1769; J1644; J2001; J2250; J7040

== ENCOUNTER → 2019-04-15 | Outpatient (CLI) | payer OTHER ==
[~2019-04-15] MED LIST changes: -FENTANYL CITRATE/PF 100MCG/2 ML INJ ONE; -HEPARIN SOD (PORCINE) 1000 UNIT/ML 30ML ONE; -LIDOCAINE HCL 2% LOCAL 20 ML VIAL ONE; -MIDAZOLAM HCL 2 MG/2 ML VIAL ONE; -SODIUM CHLORIDE 0.9% 500ML 1,000 ML ONE
--- NOTE | 2019-04-15 14:10 | Diagnostic Imaging Report ---
Left foot, 3 views. History: Pressure ulcer. Findings: There is dorsal soft tissue swelling. The bones are severely and diffusely osteopenic. There is deformity of the distal tibia, fibula, and calcaneus without evidence of acute fracture. There is focal lucency along the distal aspect of the fifth metatarsal. There is diffuse joint space narrowing and subchondral sclerosis. IMPRESSION: Distal left fifth metatarsal lucency concerning for osteomyelitis. Marked deformity of the ankle and proximal foot suggestive of old trauma. Signed by: Rudy Otto on 04/15/2019 2:07 PM
== END ==
LOC: RAD 12:40
PROVIDERS: ATTEND Family Medicine Adult Medicine
DX: L89.894 Pressure ulcer of other site, stage 4 (principal)

== ENCOUNTER 2019-05-08 12:30 | Outpatient (RCR) | payer OTHER | END 2019-05-09 | LOC: WCC 12:30 | PROVIDERS: ATTEND Family Medicine Adult Medicine | DX: T81.89XA Other complications of procedures, not elsewhere classified, initial encounter (principal); L89.154 Pressure ulcer of sacral region, stage 4; L89.44 Pressure ulcer of contiguous site of back, buttock and hip, stage 4; L89.894 Pressure ulcer of other site, stage 4; L89.893 Pressure ulcer of other site, stage 3; L89.892 Pressure ulcer of other site, stage 2; L89.890 Pressure ulcer of other site, unstageable; M86.9 Osteomyelitis, unspecified; G82.20 Paraplegia, unspecified; I10 Essential (primary) hypertension; D50.9 Iron deficiency anemia, unspecified; Y92.410 Unspecified street and highway as the place of occurrence of the external cause; Z74.01 Bed confinement status ==

== ENCOUNTER 2019-07-07 13:17 | Outpatient (RCR) | payer OTHER | END 2019-07-09 | LOC: WCC 13:17 | PROVIDERS: ATTEND Family Medicine Adult Medicine | DX: T81.89XA Other complications of procedures, not elsewhere classified, initial encounter (principal); L89.154 Pressure ulcer of sacral region, stage 4; L89.44 Pressure ulcer of contiguous site of back, buttock and hip, stage 4; L89.894 Pressure ulcer of other site, stage 4; L89.893 Pressure ulcer of other site, stage 3; L89.892 Pressure ulcer of other site, stage 2; L89.890 Pressure ulcer of other site, unstageable; M86.9 Osteomyelitis, unspecified; G82.20 Paraplegia, unspecified; I10 Essential (primary) hypertension; D50.9 Iron deficiency anemia, unspecified; Y92.410 Unspecified street and highway as the place of occurrence of the external cause; Z74.01 Bed confinement status | CPT/HCPCS: 87071; 87075; 87186; 87205 ==

== ENCOUNTER 2019-07-21 13:35 | Outpatient (RCR) | payer OTHER ==
[2019-07-31] MEDS ORDERED: ALTEPLASE RECOMBINANT 2 MG/2 ML VIAL ONE (13:50)
== END 2019-08-09 ==
LOC: WCC 13:35
PROVIDERS: ATTEND Family Medicine Adult Medicine
DX: T81.89XA Other complications of procedures, not elsewhere classified, initial encounter (principal); L89.44 Pressure ulcer of contiguous site of back, buttock and hip, stage 4; L89.154 Pressure ulcer of sacral region, stage 4; L89.894 Pressure ulcer of other site, stage 4; L89.893 Pressure ulcer of other site, stage 3; L89.892 Pressure ulcer of other site, stage 2; M86.9 Osteomyelitis, unspecified; G82.20 Paraplegia, unspecified; I10 Essential (primary) hypertension; B95.2 Enterococcus as the cause of diseases classified elsewhere; B96.5 Pseudomonas (aeruginosa) (mallei) (pseudomallei) as the cause of diseases classified elsewhere; B96.89 Other specified bacterial agents as the cause of diseases classified elsewhere; Z16.12 Extended spectrum beta lactamase (ESBL) resistance; D50.9 Iron deficiency anemia, unspecified; Y92.410 Unspecified street and highway as the place of occurrence of the external cause; Z74.01 Bed confinement status
CPT/HCPCS: 99213; J2997

== ENCOUNTER → 2019-07-31 | Outpatient (CLI) | payer OTHER ==
[~2019-07-31] MED LIST changes: +IOPAMIDOL 300MG/ML 100 ML INFUS..BTL IV ONE; +LIDOCAINE HCL 1% LOCAL INJ 20 ML VIAL ONE; +SODIUM CHLORIDE 0.9% 250ML 250 ML ONE
[2019-07-31 12:51] LABS: HEMOGLOBIN 9.8 g/dL (14.0-18.0)
[2019-07-31 13:11] LABS: CREATININE, SERUM 1.65 mg/dL (0.72-1.25)
[2019-07-31 13:13] LABS: INR 1.02
[2019-07-31 13:14] LABS: PARTIAL THROMBOPLASTIN TIME 37.3 seconds (23.8-35.5)
--- NOTE | 2019-07-31 13:18 | NUR ---
pt arrived as an OP for PICC placement per MD order, pt very A&OX4, pt has many scars to BUE where PICCs have been placed in the past, pt states they stopped placing PICCs because they couldnt ever get them to pass to either side, pt currently has what appears to be L upper chest subclavian CVC d/t poor peripherial access, catheter pulled out approx 7 cm and coiled up externally, report given to CÉSAR Callahan, pt needs IR consult to exchange current subclavian or to place a new one, pt never stuck or attempted on, CÉSAR Mcneil calling MD for further orders now
--- NOTE | 2019-07-31 14:27 | Diagnostic Imaging Report ---
Exam: Chest one view Clinical history: Central line malfunction Findings: The tip of the left internal jugular tunneled PICC appears to be in the soft tissue of the neck and now within the vascular system. Reinsertion is recommended. There is no evidence of prominent consolidation, pleural effusion, or pneumothorax. The cardiac size is within normal limits. Thoracolumbar spinal rods are partially visualized. Signed by: Dr. Bobby Horton MD on 07/31/2019 2:24 PM
--- NOTE | 2019-07-31 16:42 | Diagnostic Imaging Report ---
Exam: Tunneled PICC insertion Clinical History: Osteomyelitis Consent: Benefits and risks were explained to the patient who gave consent to the procedure. Fluoro Time: 3.7 Minutes Total Images: 3 Procedure: Sterile barrier technique was followed including cap, mask, sterile gown, sterile gloves, sterile sheet, hand hygiene and 2% chlorhexidine for cutaneous antisepsis. The left chest and neck were prepped and draped in usual sterile fashion. 2% lidocaine was used as local anesthetic. Under ultrasound guidance, the left internal jugular vein, which was patent, was accessed. A hard copy of the image was obtained. A second incision was made in the left chest wall follow by creation of a subcutaneous tunnel. Under fluoroscopic guidance, a 6 Divehi dual-lumen tunneled PICC was inserted into the tip is at the cavoatrial junction. Both lumens flushed and aspirated easily. The catheter was secured using 2-0 Prolene. The venotomy site was closed using Dermabond. Hemostasis was achieved. The patient tolerated the procedure well without any adverse reactions. She left the department in stable condition. Complication: None immediate Impression: 1. Left internal jugular tunneled PICC insertion as described. Signed by: Dr. Bobby Horton MD on 07/31/2019 4:39 PM
== END ==
LOC: DX 12:29
PROVIDERS: ATTEND Internal Medicine Infectious Disease
DX: M86.672 Other chronic osteomyelitis, left ankle and foot (principal); B96.5 Pseudomonas (aeruginosa) (mallei) (pseudomallei) as the cause of diseases classified elsewhere
CPT/HCPCS: 36415; 36558; 76937; 77001; 82565; 84520; 85014; 85049; 85610; 85730; J2001; J7050; Q9967

== ENCOUNTER → 2019-09-08 | Outpatient (RCR) | payer OTHER ==
[~2019-09-08] MED LIST changes: -IOPAMIDOL 300MG/ML 100 ML INFUS..BTL IV ONE; -LIDOCAINE HCL 1% LOCAL INJ 20 ML VIAL ONE; +MINERAL OIL/PETROLAT/GLYCERI 2OZ CRM ONE; -SODIUM CHLORIDE 0.9% 250ML 250 ML ONE
== END ==
LOC: WCC 08-18 14:12
PROVIDERS: ATTEND Family Medicine Adult Medicine
DX: L89.154 Pressure ulcer of sacral region, stage 4 (principal); L89.44 Pressure ulcer of contiguous site of back, buttock and hip, stage 4; L89.894 Pressure ulcer of other site, stage 4; L89.892 Pressure ulcer of other site, stage 2; M86.9 Osteomyelitis, unspecified; G82.20 Paraplegia, unspecified; I10 Essential (primary) hypertension; B96.89 Other specified bacterial agents as the cause of diseases classified elsewhere; Z16.12 Extended spectrum beta lactamase (ESBL) resistance; B95.2 Enterococcus as the cause of diseases classified elsewhere; B96.5 Pseudomonas (aeruginosa) (mallei) (pseudomallei) as the cause of diseases classified elsewhere; D50.9 Iron deficiency anemia, unspecified; Y92.410 Unspecified street and highway as the place of occurrence of the external cause; Z74.01 Bed confinement status

== ENCOUNTER 2019-10-06 13:31 | Outpatient (RCR) | payer OTHER ==
[~2019-10-06 13:31] MED LIST changes: +LIDOCAINE VISC 2% SOLN 15 ML UDC ONE; -MINERAL OIL/PETROLAT/GLYCERI 2OZ CRM ONE
== END 2019-10-09 ==
LOC: WCC 13:31
PROVIDERS: ATTEND Family Medicine Adult Medicine
DX: L89.154 Pressure ulcer of sacral region, stage 4 (principal); L89.44 Pressure ulcer of contiguous site of back, buttock and hip, stage 4; L89.894 Pressure ulcer of other site, stage 4; L89.892 Pressure ulcer of other site, stage 2; M86.9 Osteomyelitis, unspecified; S71.101A Unspecified open wound, right thigh, initial encounter; G82.20 Paraplegia, unspecified; I10 Essential (primary) hypertension; B95.2 Enterococcus as the cause of diseases classified elsewhere; B96.5 Pseudomonas (aeruginosa) (mallei) (pseudomallei) as the cause of diseases classified elsewhere; B96.89 Other specified bacterial agents as the cause of diseases classified elsewhere; Z16.12 Extended spectrum beta lactamase (ESBL) resistance; D50.9 Iron deficiency anemia, unspecified; Y92.410 Unspecified street and highway as the place of occurrence of the external cause; Z74.01 Bed confinement status

== ENCOUNTER 2019-11-03 15:17 | Outpatient (RCR) | payer OTHER ==
[~2019-11-03 15:17] MED LIST changes: -LIDOCAINE VISC 2% SOLN 15 ML UDC ONE
== END 2019-11-09 ==
LOC: WCC 15:17
PROVIDERS: ATTEND Family Medicine Adult Medicine
DX: L89.154 Pressure ulcer of sacral region, stage 4 (principal); L89.44 Pressure ulcer of contiguous site of back, buttock and hip, stage 4; L89.894 Pressure ulcer of other site, stage 4; L89.892 Pressure ulcer of other site, stage 2; M86.9 Osteomyelitis, unspecified; G82.20 Paraplegia, unspecified; I10 Essential (primary) hypertension; B95.2 Enterococcus as the cause of diseases classified elsewhere; Z16.12 Extended spectrum beta lactamase (ESBL) resistance; B96.5 Pseudomonas (aeruginosa) (mallei) (pseudomallei) as the cause of diseases classified elsewhere; B96.89 Other specified bacterial agents as the cause of diseases classified elsewhere; D50.9 Iron deficiency anemia, unspecified; Y92.410 Unspecified street and highway as the place of occurrence of the external cause; Z74.01 Bed confinement status
CPT/HCPCS: 87071; 87075; 87186; 87205

== ENCOUNTER 2019-11-17 14:42 | Outpatient (RCR) | payer OTHER ==
[2019-11-17] MEDS ORDERED: LIDOCAINE VISC 2% SOLN 15 ML UDC ONE (16:17)
== END 2019-12-09 ==
LOC: WCC 14:42
PROVIDERS: ATTEND Family Medicine Adult Medicine
DX: L89.154 Pressure ulcer of sacral region, stage 4 (principal); L89.44 Pressure ulcer of contiguous site of back, buttock and hip, stage 4; L89.894 Pressure ulcer of other site, stage 4; L89.892 Pressure ulcer of other site, stage 2; S70.311A Abrasion, right thigh, initial encounter; G82.20 Paraplegia, unspecified; I10 Essential (primary) hypertension; Z16.12 Extended spectrum beta lactamase (ESBL) resistance; D50.9 Iron deficiency anemia, unspecified; Y92.410 Unspecified street and highway as the place of occurrence of the external cause; Z74.01 Bed confinement status

== ENCOUNTER 2019-12-31 10:57 | Outpatient (RCR) | payer OTHER | END 2020-01-09 | LOC: WCC 10:57 | PROVIDERS: ATTEND Family Medicine Adult Medicine | DX: L89.154 Pressure ulcer of sacral region, stage 4 (principal); L89.44 Pressure ulcer of contiguous site of back, buttock and hip, stage 4; L89.894 Pressure ulcer of other site, stage 4; L89.892 Pressure ulcer of other site, stage 2; S70.311A Abrasion, right thigh, initial encounter; G82.20 Paraplegia, unspecified; I10 Essential (primary) hypertension; B95.2 Enterococcus as the cause of diseases classified elsewhere; B96.5 Pseudomonas (aeruginosa) (mallei) (pseudomallei) as the cause of diseases classified elsewhere; B96.89 Other specified bacterial agents as the cause of diseases classified elsewhere; Z16.12 Extended spectrum beta lactamase (ESBL) resistance; D50.9 Iron deficiency anemia, unspecified; Y92.410 Unspecified street and highway as the place of occurrence of the external cause; Z74.01 Bed confinement status ==

== ENCOUNTER 2020-01-28 14:41 | Outpatient (RCR) | payer OTHER | END 2020-02-08 | LOC: WCC 14:41 | PROVIDERS: ATTEND Family Medicine Adult Medicine | DX: L89.154 Pressure ulcer of sacral region, stage 4 (principal); L89.312 Pressure ulcer of right buttock, stage 2; S71.102A Unspecified open wound, left thigh, initial encounter; K68.12 Psoas muscle abscess; I10 Essential (primary) hypertension; G82.20 Paraplegia, unspecified; B95.2 Enterococcus as the cause of diseases classified elsewhere; B96.5 Pseudomonas (aeruginosa) (mallei) (pseudomallei) as the cause of diseases classified elsewhere; B96.89 Other specified bacterial agents as the cause of diseases classified elsewhere; Z16.12 Extended spectrum beta lactamase (ESBL) resistance; D50.9 Iron deficiency anemia, unspecified; Y92.410 Unspecified street and highway as the place of occurrence of the external cause; Z74.01 Bed confinement status | CPT/HCPCS: 87071; 87075; 87205 ==

== ENCOUNTER 2020-02-16 09:30 | Outpatient (RCR) | payer OTHER | END 2020-03-10 | LOC: WCC 09:30 | PROVIDERS: ATTEND Family Medicine Adult Medicine | DX: L89.154 Pressure ulcer of sacral region, stage 4 (principal); L89.894 Pressure ulcer of other site, stage 4; L89.312 Pressure ulcer of right buttock, stage 2; K68.12 Psoas muscle abscess; S71.102A Unspecified open wound, left thigh, initial encounter; B95.2 Enterococcus as the cause of diseases classified elsewhere; B96.5 Pseudomonas (aeruginosa) (mallei) (pseudomallei) as the cause of diseases classified elsewhere; B96.89 Other specified bacterial agents as the cause of diseases classified elsewhere; Z16.12 Extended spectrum beta lactamase (ESBL) resistance; D50.9 Iron deficiency anemia, unspecified; G82.20 Paraplegia, unspecified; I10 Essential (primary) hypertension; Y92.410 Unspecified street and highway as the place of occurrence of the external cause; Z74.01 Bed confinement status | CPT/HCPCS: 87071; 87075; 87186; 87205 ==

== ENCOUNTER 2020-03-01 09:38 | Outpatient (RCR) | payer OTHER | END 2020-03-10 | LOC: WCC 09:38 | PROVIDERS: ATTEND Family Medicine Adult Medicine | DX: L89.154 Pressure ulcer of sacral region, stage 4 (principal); L89.894 Pressure ulcer of other site, stage 4; L89.312 Pressure ulcer of right buttock, stage 2; K68.12 Psoas muscle abscess; S71.102A Unspecified open wound, left thigh, initial encounter; G82.20 Paraplegia, unspecified; B96.89 Other specified bacterial agents as the cause of diseases classified elsewhere; I10 Essential (primary) hypertension; B95.2 Enterococcus as the cause of diseases classified elsewhere; B96.5 Pseudomonas (aeruginosa) (mallei) (pseudomallei) as the cause of diseases classified elsewhere; Z16.12 Extended spectrum beta lactamase (ESBL) resistance; D50.9 Iron deficiency anemia, unspecified; Y92.410 Unspecified street and highway as the place of occurrence of the external cause; Z74.01 Bed confinement status ==

== ENCOUNTER 2020-05-05 15:08 | Outpatient (RCR) | payer OTHER | END 2020-05-08 | LOC: WCC 15:08 | PROVIDERS: ATTEND Family Medicine Adult Medicine | DX: T81.32XA Disruption of internal operation (surgical) wound, not elsewhere classified, initial encounter (principal); L89.154 Pressure ulcer of sacral region, stage 4; L89.894 Pressure ulcer of other site, stage 4; L89.312 Pressure ulcer of right buttock, stage 2; T24.331A Burn of third degree of right lower leg, initial encounter; S71.102A Unspecified open wound, left thigh, initial encounter; K68.12 Psoas muscle abscess; I10 Essential (primary) hypertension; G82.20 Paraplegia, unspecified; B96.89 Other specified bacterial agents as the cause of diseases classified elsewhere; B95.2 Enterococcus as the cause of diseases classified elsewhere; B96.5 Pseudomonas (aeruginosa) (mallei) (pseudomallei) as the cause of diseases classified elsewhere; Z16.12 Extended spectrum beta lactamase (ESBL) resistance; D50.9 Iron deficiency anemia, unspecified; Y92.410 Unspecified street and highway as the place of occurrence of the external cause; Z74.01 Bed confinement status ==

== ENCOUNTER 2020-06-02 15:12 | Outpatient (RCR) | payer OTHER ==
[~2020-06-02 15:12] MED LIST changes: +MUPIROCIN 2% OINT 22 GM TUBE ONE
== END 2020-06-08 ==
LOC: WCC 15:12
PROVIDERS: ATTEND Family Medicine Adult Medicine
DX: T81.32XA Disruption of internal operation (surgical) wound, not elsewhere classified, initial encounter (principal); L89.154 Pressure ulcer of sacral region, stage 4; L89.894 Pressure ulcer of other site, stage 4; L89.622 Pressure ulcer of left heel, stage 2; L89.92 Pressure ulcer of unspecified site, stage 2; T24.331A Burn of third degree of right lower leg, initial encounter; S70.311A Abrasion, right thigh, initial encounter; K68.12 Psoas muscle abscess; G82.20 Paraplegia, unspecified; B96.5 Pseudomonas (aeruginosa) (mallei) (pseudomallei) as the cause of diseases classified elsewhere; Z16.12 Extended spectrum beta lactamase (ESBL) resistance; I10 Essential (primary) hypertension; B95.2 Enterococcus as the cause of diseases classified elsewhere; B96.89 Other specified bacterial agents as the cause of diseases classified elsewhere; D50.9 Iron deficiency anemia, unspecified; Y92.410 Unspecified street and highway as the place of occurrence of the external cause; Z74.01 Bed confinement status
CPT/HCPCS: 87071; 87075; 87186; 87205

== ENCOUNTER → 2020-06-13 | Outpatient (CLI) | payer OTHER ==
[~2020-06-13] MED LIST changes: +CEFAZOLIN SOD 1 GM/NS 50ML 50 ML IV ONE; +FENTANYL CITRATE/PF 100MCG/2 ML INJ ONE; +IOPAMIDOL 300MG/ML 100 ML INFUS..BTL IV ONE; +LIDOCAINE HCL 1% LOCAL INJ 20 ML VIAL ONE; +MIDAZOLAM HCL 2 MG/2 ML VIAL ONE; -MUPIROCIN 2% OINT 22 GM TUBE ONE; +SODIUM CHLORIDE 0.9% 250ML 250 ML ONE
[2020-06-13 10:05] LABS: HEMOGLOBIN 9.8 g/dL (14.0-18.0)
[2020-06-13 10:45] LABS: INR 0.98; PROTHROMBIN TIME 13.6 seconds (11.9-14.5)
[2020-06-13 10:46] LABS: PARTIAL THROMBOPLASTIN TIME 36.4 seconds (23.8-35.5)
== END ==
LOC: DX 09:25
PROVIDERS: ATTEND Internal Medicine Infectious Disease
DX: M86.451 Chronic osteomyelitis with draining sinus, right femur (principal); Z16.12 Extended spectrum beta lactamase (ESBL) resistance; B96.4 Proteus (mirabilis) (morganii) as the cause of diseases classified elsewhere; Z20.822 Contact with and (suspected) exposure to COVID-19
CPT/HCPCS: 36415; 36558; 76937; 77001; 85014; 85049; 85610; 85730; J0690; J2001; J2250; J3010; J7050; Q9967; U0002

== ENCOUNTER 2020-06-16 13:50 | Outpatient (RCR) | payer OTHER ==
[~2020-06-16 13:50] MED LIST changes: -CEFAZOLIN SOD 1 GM/NS 50ML 50 ML IV ONE; -FENTANYL CITRATE/PF 100MCG/2 ML INJ ONE; -IOPAMIDOL 300MG/ML 100 ML INFUS..BTL IV ONE; -LIDOCAINE HCL 1% LOCAL INJ 20 ML VIAL ONE; -MIDAZOLAM HCL 2 MG/2 ML VIAL ONE; -SODIUM CHLORIDE 0.9% 250ML 250 ML ONE
[2020-06-16] MEDS ORDERED: LIDOCAINE VISC 2% SOLN 15 ML UDC ONE (15:43)
== END 2020-07-08 ==
LOC: WCC 13:50
PROVIDERS: ATTEND Family Medicine Adult Medicine
DX: T81.32XA Disruption of internal operation (surgical) wound, not elsewhere classified, initial encounter (principal); L89.154 Pressure ulcer of sacral region, stage 4; L89.894 Pressure ulcer of other site, stage 4; L89.323 Pressure ulcer of left buttock, stage 3; L89.622 Pressure ulcer of left heel, stage 2; K68.12 Psoas muscle abscess; T24.31 Burn of third degree of thigh; S30.810A Abrasion of lower back and pelvis, initial encounter; S70.311A Abrasion, right thigh, initial encounter; G82.20 Paraplegia, unspecified; I10 Essential (primary) hypertension; D50.9 Iron deficiency anemia, unspecified; B96.5 Pseudomonas (aeruginosa) (mallei) (pseudomallei) as the cause of diseases classified elsewhere; Y92.410 Unspecified street and highway as the place of occurrence of the external cause; Z16.12 Extended spectrum beta lactamase (ESBL) resistance; Z74.01 Bed confinement status

== ENCOUNTER 2021-03-17 08:40 | Outpatient (RCR) | payer OTHER | END 2021-04-10 | LOC: WCC 08:40 | PROVIDERS: ATTEND Internal Medicine Infectious Disease | DX: T81.89XD Other complications of procedures, not elsewhere classified, subsequent encounter (principal); Y83.1 Surgical operation with implant of artificial internal device as the cause of abnormal reaction of the patient, or of later complication, without mention of misadventure at the time of the procedure; L89.324 Pressure ulcer of left buttock, stage 4; L89.313 Pressure ulcer of right buttock, stage 3; L89.893 Pressure ulcer of other site, stage 3; L89.302 Pressure ulcer of unspecified buttock, stage 2; L89.892 Pressure ulcer of other site, stage 2; K68.12 Psoas muscle abscess; I10 Essential (primary) hypertension; D50.9 Iron deficiency anemia, unspecified; Y92.410 Unspecified street and highway as the place of occurrence of the external cause; G82.20 Paraplegia, unspecified; Z74.01 Bed confinement status | CPT/HCPCS: 87071; 87075; 87186; 87205 ==

== ENCOUNTER 2021-05-05 11:12 | Outpatient (RCR) | payer OTHER | END 2021-05-08 | LOC: WCC 11:12 | PROVIDERS: ATTEND Internal Medicine Infectious Disease | DX: T81.89XD Other complications of procedures, not elsewhere classified, subsequent encounter (principal); Y83.1 Surgical operation with implant of artificial internal device as the cause of abnormal reaction of the patient, or of later complication, without mention of misadventure at the time of the procedure; L89.324 Pressure ulcer of left buttock, stage 4; L89.313 Pressure ulcer of right buttock, stage 3; L89.893 Pressure ulcer of other site, stage 3; L89.892 Pressure ulcer of other site, stage 2; L89.302 Pressure ulcer of unspecified buttock, stage 2; K68.12 Psoas muscle abscess; I10 Essential (primary) hypertension; D50.9 Iron deficiency anemia, unspecified; G82.20 Paraplegia, unspecified; Y92.410 Unspecified street and highway as the place of occurrence of the external cause; Z74.01 Bed confinement status ==

== ENCOUNTER 2021-09-15 14:25 | Outpatient (RCR) | payer OTHER | END 2021-10-08 | LOC: WCC 14:25 | PROVIDERS: ATTEND Internal Medicine Infectious Disease | DX: T81.89XD Other complications of procedures, not elsewhere classified, subsequent encounter (principal); Y83.1 Surgical operation with implant of artificial internal device as the cause of abnormal reaction of the patient, or of later complication, without mention of misadventure at the time of the procedure; L89.324 Pressure ulcer of left buttock, stage 4; L89.313 Pressure ulcer of right buttock, stage 3; L89.893 Pressure ulcer of other site, stage 3; L89.42 Pressure ulcer of contiguous site of back, buttock and hip, stage 2; K68.12 Psoas muscle abscess; I10 Essential (primary) hypertension; G82.20 Paraplegia, unspecified; D50.9 Iron deficiency anemia, unspecified; Y92.410 Unspecified street and highway as the place of occurrence of the external cause; Z74.01 Bed confinement status ==

== ENCOUNTER 2021-11-03 11:55 | Outpatient (RCR) | payer OTHER | END 2021-11-08 | LOC: WCC 11:55 | PROVIDERS: ATTEND Internal Medicine Infectious Disease | DX: T81.89XD Other complications of procedures, not elsewhere classified, subsequent encounter (principal); Y83.1 Surgical operation with implant of artificial internal device as the cause of abnormal reaction of the patient, or of later complication, without mention of misadventure at the time of the procedure; L89.324 Pressure ulcer of left buttock, stage 4; L89.313 Pressure ulcer of right buttock, stage 3; L89.893 Pressure ulcer of other site, stage 3; L89.42 Pressure ulcer of contiguous site of back, buttock and hip, stage 2; L89.620 Pressure ulcer of left heel, unstageable; K68.12 Psoas muscle abscess; G82.20 Paraplegia, unspecified; I10 Essential (primary) hypertension; D50.9 Iron deficiency anemia, unspecified; Y92.410 Unspecified street and highway as the place of occurrence of the external cause; Z74.01 Bed confinement status ==

== ENCOUNTER 2021-12-15 14:37 | Outpatient (RCR) | payer OTHER | END 2022-01-08 | LOC: WCC 14:37 | PROVIDERS: ATTEND Internal Medicine Infectious Disease | DX: T81.89XD Other complications of procedures, not elsewhere classified, subsequent encounter (principal); Y83.1 Surgical operation with implant of artificial internal device as the cause of abnormal reaction of the patient, or of later complication, without mention of misadventure at the time of the procedure; L89.324 Pressure ulcer of left buttock, stage 4; L89.313 Pressure ulcer of right buttock, stage 3; L89.43 Pressure ulcer of contiguous site of back, buttock and hip, stage 3; L89.893 Pressure ulcer of other site, stage 3; L89.42 Pressure ulcer of contiguous site of back, buttock and hip, stage 2; L89.620 Pressure ulcer of left heel, unstageable; A48.0 Gas gangrene; K68.12 Psoas muscle abscess; I10 Essential (primary) hypertension; D50.9 Iron deficiency anemia, unspecified; G82.20 Paraplegia, unspecified; Y92.410 Unspecified street and highway as the place of occurrence of the external cause; Z74.01 Bed confinement status ==